=== PATIENT | female | born 1945 | race Caucasian/White ===

== ENCOUNTER 2020-12-13 15:56 | Outpatient (CLI) | payer MEDICARE, BC, SELFPAY ==
--- NOTE | 2020-12-13 16:00 | MR_ITS ---
WS: [id number] MRCP (MAGNETIC RESONANCE CHOLANGIOPANCREATOGRAPHY) HISTORY: PANCREATIC CYST COMPARISON: None available. TECHNIQUE: Multiple sequences are performed to evaluate the intra and extrahepatic ducts. Liver is elongated measuring just greater than 18 cm in length. No mass is identified. Bile ducts are normal size. Normal signal intensity in the portal vein and hepatic veins. Common bile duct is reilly l size. Gallbladder is normally distended with no filling defects. Pancreas is normal size. Pancreati c duct is top normal at 2 mm. No filling defects in the pancreatic duct. No pancreatic cyst is identi fied on this evaluation. There is no pancreatic mass identified or adjacent inflammation. Both kidney s are normal size. No mass. Normal size spleen. MR/MR MRCP [id number] IMPRESSION: 1. Normal common bile duct. No filling defect or enlargement. 2. Mild hepatomegaly. 3. No pancreatic cyst. 4. No anchoring mass.
== END 2020-12-13 15:57 | disposition home or self-care (01) ==
PROVIDERS: PCP Internal Medicine; Visit Provider Internal Medicine
DX: K86.2 Cyst of pancreas (principal); R16.0 Hepatomegaly, not elsewhere classified
CPT/HCPCS: 74181

== ENCOUNTER → 2021-01-10 08:09 | Outpatient (BNVA) | payer MEDICARE, BC, SELFPAY | PROVIDERS: PCP Internal Medicine; Visit Provider Specialist | DX: G30.9 Alzheimer's disease, unspecified (principal); F02.80 Dementia in other diseases classified elsewhere, unspecified severity, without behavioral disturbance, psychotic disturbance, mood disturbance, and anxiety; G24.3 Spasmodic torticollis | CPT/HCPCS: 96116; 99204; 99205 ==

== ENCOUNTER 2021-01-22 13:34 | Outpatient (RCR) | payer MEDICARE, BC, SELFPAY | END 2021-02-17 23:59 | disposition home or self-care (01) | LOC: SPT 13:34 | PROVIDERS: PCP Internal Medicine; Referring Provider Specialist; Visit Provider Specialist | DX: G24.3 Spasmodic torticollis (principal) | CPT/HCPCS: 97110; 97162 ==

== ENCOUNTER → 2021-02-14 12:53 | Outpatient (BNVA) | payer MEDICARE, BC, SELFPAY | PROVIDERS: PCP Internal Medicine; Visit Provider Specialist | DX: G24.3 Spasmodic torticollis (principal); G30.9 Alzheimer's disease, unspecified; F02.80 Dementia in other diseases classified elsewhere, unspecified severity, without behavioral disturbance, psychotic disturbance, mood disturbance, and anxiety | CPT/HCPCS: 64616; 99213; 99214; J0585 ==

== ENCOUNTER 2021-02-18 06:00 | Outpatient (RCR) | payer MEDICARE, BC, SELFPAY | END 2021-03-19 23:59 | disposition home or self-care (01) | LOC: SPT 06:00 | PROVIDERS: PCP Internal Medicine; Referring Provider Specialist; Visit Provider Specialist | DX: G24.3 Spasmodic torticollis (principal) | CPT/HCPCS: 97110 ==

== ENCOUNTER 2021-03-20 06:00 | Outpatient (RCR) | payer MEDICARE, BC, SELFPAY | END 2021-04-19 23:59 | disposition home or self-care (01) | LOC: SPT 06:00 | PROVIDERS: PCP Internal Medicine; Referring Provider Specialist; Visit Provider Specialist | DX: G24.3 Spasmodic torticollis (principal) | CPT/HCPCS: 97110 ==

== ENCOUNTER 2021-03-26 09:25 | Outpatient (CLI) | payer MEDICARE, BC, SELFPAY ==
--- NOTE | 2021-03-26 09:32 | MM_ITS ---
WS: [id number] BILATERAL DIGITAL SCREENING MAMMOGRAPHY WITH CAD CLINICAL INFORMATION: SCREENING HISTORY: Screening mammogram. No current complaints. COMPARISON: August 30, 2019 TECHNIQUE: Bilateral CC and MLO views. FINDINGS: History of breast reduction. Right nipple inversion Scattered fibroglandular densities bilaterally. Dystrophic calcification upper outer left breast. Guille ateral punctate and lucent centered calcifications are similar in appearance. Vascular calcification. No suspicious focal mass, asymmetry, calcifications, or architectural distortion. No evidence of mal ignancy. MM/[place] [id number] IMPRESSION: BI-RADS: 2-Benign FOLLOW UP: 1 Year Follow-up Recommend return to annual screening mammography.
== END 2021-03-26 09:26 | disposition home or self-care (01) ==
LOC: RADSHAW 09:30
PROVIDERS: PCP Internal Medicine; Visit Provider Internal Medicine
DX: Z12.31 Encounter for screening mammogram for malignant neoplasm of breast (principal)
CPT/HCPCS: 77067

== ENCOUNTER → 2021-03-27 09:39 | Outpatient (BNVA) | payer MEDICARE, BC, SELFPAY | PROVIDERS: PCP Internal Medicine; Visit Provider Specialist | DX: G24.3 Spasmodic torticollis (principal); G30.9 Alzheimer's disease, unspecified; F02.80 Dementia in other diseases classified elsewhere, unspecified severity, without behavioral disturbance, psychotic disturbance, mood disturbance, and anxiety | CPT/HCPCS: 99214 ==

== ENCOUNTER 2021-04-20 06:00 | Outpatient (RCR) | payer MEDICARE, BC, SELFPAY | END 2021-05-20 23:59 | disposition home or self-care (01) | LOC: SPT 06:00 | PROVIDERS: PCP Internal Medicine; Referring Provider Specialist; Visit Provider Specialist | DX: G24.3 Spasmodic torticollis (principal) | CPT/HCPCS: 97110 ==

== ENCOUNTER → 2021-05-09 13:19 | Outpatient (BNVA) | payer MEDICARE, BC, SELFPAY | PROVIDERS: PCP Internal Medicine; Visit Provider Specialist | DX: G24.3 Spasmodic torticollis (principal); G30.9 Alzheimer's disease, unspecified; F02.80 Dementia in other diseases classified elsewhere, unspecified severity, without behavioral disturbance, psychotic disturbance, mood disturbance, and anxiety | CPT/HCPCS: 64616; 99213; 99214; J0585 ==

== ENCOUNTER 2021-05-28 06:00 | Outpatient (RCR) | payer MEDICARE, BC, SELFPAY | END 2021-06-17 23:59 | disposition home or self-care (01) | LOC: SST 06:00 | PROVIDERS: PCP Internal Medicine; Referring Provider Specialist; Visit Provider Specialist | DX: G30.9 Alzheimer's disease, unspecified (principal); F02.80 Dementia in other diseases classified elsewhere, unspecified severity, without behavioral disturbance, psychotic disturbance, mood disturbance, and anxiety | CPT/HCPCS: 92507; 96125 ==

== ENCOUNTER 2021-07-24 14:47 | Outpatient (CLI) | payer MEDICARE, BC, SELFPAY ==
[2021-07-24 15:14] LABS: Add Urine Microscopic? NO; Charge for UA Resulting for Rev
[2021-07-24 15:31] LABS: Bilirubin Urine Neg (Negative); Blood Urine Neg (Negative); Glucose Urine UA Norm (Normal); Ketones Urine Negative (Negative); Leukocyte Esterase Urine Negative (Negative); Nitrate Urine Negative (Negative); Protein Urine Neg (Negative); Specific Gravity, Urine 1.015 (1.005-1.030); Urine Appearance Clear (CLEAR); Urine Color Yellow (Yellow); Urobilinogen Urine Neg (Negative); pH Urine 5 (5-7)
== END 2021-07-24 14:48 | disposition home or self-care (01) ==
LOC: LAB 14:53
PROVIDERS: PCP Internal Medicine; Visit Provider Internal Medicine
DX: R46.89 Other symptoms and signs involving appearance and behavior (principal)
CPT/HCPCS: 81003; 87086

== ENCOUNTER 2021-07-29 14:02 | Outpatient (CLI) | payer MEDICARE, BC, SELFPAY ==
--- NOTE | 2021-07-29 14:15 | XRR_ITS ---
PROCEDURE INFORMATION: Exam: XR Pelvis Exam date and time: 07/29/2021 2:16 PM Age: 75 years old Clinical indication: Injury or trauma; Fall; Blunt trauma (contusions or hematomas); Bilateral; Pelvic region; Injury details: Pain pelvis/ tailbone area. PT fell 10 days ago; Prior surgery; Surgery type: Rectal/vagina prolapse repair; Additional info: Coccydynia/falls TECHNIQUE: Imaging protocol: XR pelvis. Views: 1 or 2 view. COMPARISON: MR MRCP [id number] 12/13/2020 4:35 PM FINDINGS: Bones/joints: No acute fracture. Moderate joint space narrowing of both hips. 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 Soft tissues: Metallic artifact at the pubic symphysis, likely from prolapse repair. XR/XR pelvis 1-2V* [id number] IMPRESSION: No acute findings.
--- NOTE | 2021-07-29 14:15 | XRR_ITS ---
PROCEDURE INFORMATION: Exam: XR Sacrum and Coccyx, 2 or More Views Exam date and time: 07/29/2021 2:16 PM Age: 75 years old Clinical indication: Injury or trauma; Fall; Blunt trauma (contusions or hematomas); Prior surgery; Surgery type: Rectal/vagina prolapse repair; Patient HX: Pain pelvis/ tailbone area. PT fell 10 days ago; Additional info: Coccydynia/falls TECHNIQUE: Imaging protocol: XR of the sacrum and coccyx, 2 or more views. COMPARISON: MR MRCP [id number] 12/13/2020 4:35 PM FINDINGS: Bones/joints: Normal. No acute fracture. Soft tissues: Normal. XR/XR sacrum coccyx min 2V [id number] IMPRESSION: No acute findings.
== END 2021-07-29 14:03 | disposition home or self-care (01) ==
LOC: RAD 14:07
PROVIDERS: PCP Internal Medicine; Visit Provider Internal Medicine
DX: M53.3 Sacrococcygeal disorders, not elsewhere classified (principal); R29.6 Repeated falls; R52 Pain, unspecified
CPT/HCPCS: 72170; 72220

== ENCOUNTER → 2021-08-29 09:19 | Outpatient (BNVA) | payer MEDICARE, BC, SELFPAY | PROVIDERS: PCP Internal Medicine; Visit Provider Specialist | DX: G24.3 Spasmodic torticollis (principal); G30.9 Alzheimer's disease, unspecified; F02.80 Dementia in other diseases classified elsewhere, unspecified severity, without behavioral disturbance, psychotic disturbance, mood disturbance, and anxiety | CPT/HCPCS: 64616; 99213; J0585 ==

== ENCOUNTER → 2021-09-25 13:14 | Outpatient (BNVA) | payer MEDICARE, BC, SELFPAY | PROVIDERS: PCP Internal Medicine; Visit Provider Specialist | DX: G30.9 Alzheimer's disease, unspecified (principal); F02.80 Dementia in other diseases classified elsewhere, unspecified severity, without behavioral disturbance, psychotic disturbance, mood disturbance, and anxiety; G24.3 Spasmodic torticollis; R21 Rash and other nonspecific skin eruption | CPT/HCPCS: 99213; 99214 ==

== ENCOUNTER → 2021-11-19 10:59 | Outpatient (BNVA) | payer MEDICARE, BC, SELFPAY | PROVIDERS: PCP Internal Medicine; Visit Provider Podiatrist Foot & Ankle Surgery | DX: L60.8 Other nail disorders (principal); L60.3 Nail dystrophy; I73.9 Peripheral vascular disease, unspecified | CPT/HCPCS: 11721 ==

== ENCOUNTER → 2021-11-21 09:23 | Outpatient (BNVA) | payer MEDICARE, BC, SELFPAY | PROVIDERS: PCP Internal Medicine; Visit Provider Specialist | DX: G24.3 Spasmodic torticollis (principal); M41.9 Scoliosis, unspecified; G30.9 Alzheimer's disease, unspecified; F02.80 Dementia in other diseases classified elsewhere, unspecified severity, without behavioral disturbance, psychotic disturbance, mood disturbance, and anxiety | CPT/HCPCS: 64616; 72072; 72100; 72220; 99212; 99213; J0585 ==

== ENCOUNTER 2021-11-26 06:00 | Outpatient (RCR) | payer MEDICARE, BC, SELFPAY | END 2021-12-18 23:59 | disposition home or self-care (01) | LOC: SPT 06:00 | PROVIDERS: PCP Internal Medicine; Referring Provider Specialist; Visit Provider Specialist | DX: M54.50 Low back pain, unspecified (principal) | CPT/HCPCS: 97110; 97161; 97162; 97530 ==

== ENCOUNTER 2021-11-26 06:00 | Outpatient (RCR) | payer MEDICARE, BC, SELFPAY | END 2021-12-18 23:59 | disposition home or self-care (01) | LOC: SPT 06:00 | PROVIDERS: PCP Internal Medicine; Referring Provider Internal Medicine; Visit Provider Internal Medicine | DX: M54.50 Low back pain, unspecified (principal); G89.29 Other chronic pain | CPT/HCPCS: 97110; 97161; 97530 ==

== ENCOUNTER 2021-12-14 16:24 | Outpatient (CLI) | payer MEDICARE, BC, SELFPAY ==
[2021-12-14 16:31] LABS: Add Urine Microscopic? NO; Charge for UA Resulting for Rev
[2021-12-14 16:44] LABS: Bilirubin Urine Neg (Negative); Blood Urine Neg (Negative); Glucose Urine UA Norm (Normal); Ketones Urine Negative (Negative); Leukocyte Esterase Urine Negative (Negative); Nitrate Urine Negative (Negative); Protein Urine Neg (Negative); Specific Gravity, Urine 1.005 (1.005-1.030); Urine Appearance Clear (CLEAR); Urine Color Yellow (Yellow); Urobilinogen Urine Norm (Negative); pH Urine 6 (5-7)
== END 2021-12-14 16:25 | disposition home or self-care (01) ==
LOC: LAB 16:26
PROVIDERS: PCP Internal Medicine; Visit Provider Family Medicine
DX: N39.0 Urinary tract infection, site not specified (principal)
CPT/HCPCS: 81003; 87086

== ENCOUNTER 2021-12-19 06:00 | Outpatient (RCR) | payer MEDICARE, BC, SELFPAY | END 2022-01-17 23:59 | disposition home or self-care (01) | LOC: SPT 06:00 | PROVIDERS: PCP Internal Medicine; Visit Provider Internal Medicine | DX: M54.50 Low back pain, unspecified (principal) | CPT/HCPCS: 97110; 97530 ==

== ENCOUNTER 2021-12-19 06:00 | Outpatient (RCR) | payer MEDICARE, BC, SELFPAY | END 2022-01-17 23:59 | disposition home or self-care (01) | LOC: SPT 06:00 | PROVIDERS: PCP Internal Medicine; Visit Provider Specialist | DX: M54.50 Low back pain, unspecified (principal); G89.29 Other chronic pain | CPT/HCPCS: 97110 ==

== ENCOUNTER 2022-01-18 06:00 | Outpatient (RCR) | payer MEDICARE, BC, SELFPAY | END 2022-02-17 23:59 | disposition home or self-care (01) | LOC: SPT 06:00 | PROVIDERS: PCP Internal Medicine; Visit Provider Internal Medicine | DX: M54.50 Low back pain, unspecified (principal) | CPT/HCPCS: 97110; 97112; 97530 ==

== ENCOUNTER 2022-02-18 06:00 | Outpatient (RCR) | payer MEDICARE, BC, SELFPAY | END 2022-03-19 23:59 | disposition home or self-care (01) | LOC: SPT 06:00 | PROVIDERS: PCP Internal Medicine; Visit Provider Internal Medicine | DX: M54.50 Low back pain, unspecified (principal) | CPT/HCPCS: 97530 ==

== ENCOUNTER → 2022-02-20 14:02 | Outpatient (BNVA) | payer MEDICARE, BC, SELFPAY | PROVIDERS: PCP Internal Medicine; Visit Provider Specialist | DX: G24.3 Spasmodic torticollis (principal) | CPT/HCPCS: 64616 ==

== ENCOUNTER → 2022-03-03 15:27 | Outpatient (BNVA) | payer MEDICARE, BC, SELFPAY | PROVIDERS: PCP Internal Medicine; Visit Provider Podiatrist Foot & Ankle Surgery | DX: L60.8 Other nail disorders (principal); L60.3 Nail dystrophy; I73.9 Peripheral vascular disease, unspecified | CPT/HCPCS: 99213 ==

== ENCOUNTER → 2022-04-28 12:29 | Outpatient (BNVA) | payer MEDICARE, BC, SELFPAY | PROVIDERS: PCP Internal Medicine; Referring Provider Specialist; Visit Provider Specialist | DX: G30.9 Alzheimer's disease, unspecified (principal); F02.80 Dementia in other diseases classified elsewhere, unspecified severity, without behavioral disturbance, psychotic disturbance, mood disturbance, and anxiety; G24.3 Spasmodic torticollis; G47.419 Narcolepsy without cataplexy | CPT/HCPCS: 96116; 99215 ==

== ENCOUNTER → 2022-05-06 10:21 | Outpatient (BNVA) | payer MEDICARE, BC, SELFPAY | PROVIDERS: PCP Internal Medicine; Visit Provider Podiatrist Foot & Ankle Surgery | DX: I73.9 Peripheral vascular disease, unspecified (principal); L60.8 Other nail disorders; L60.3 Nail dystrophy | CPT/HCPCS: 11721 ==

== ENCOUNTER → 2022-05-15 14:13 | Outpatient (BNVA) | payer MEDICARE, BC, SELFPAY | PROVIDERS: PCP Internal Medicine; Visit Provider Specialist | DX: G24.3 Spasmodic torticollis (principal); G30.9 Alzheimer's disease, unspecified; F02.80 Dementia in other diseases classified elsewhere, unspecified severity, without behavioral disturbance, psychotic disturbance, mood disturbance, and anxiety; G47.419 Narcolepsy without cataplexy | CPT/HCPCS: 64616; 99214; J0585 ==

== ENCOUNTER → 2022-07-15 10:54 | Outpatient (BNVA) | payer MEDICARE, BC, SELFPAY | PROVIDERS: PCP Internal Medicine; Visit Provider Podiatrist Foot & Ankle Surgery | DX: I73.9 Peripheral vascular disease, unspecified (principal); L60.8 Other nail disorders; L60.3 Nail dystrophy | CPT/HCPCS: 11721 ==

== ENCOUNTER 2022-09-04 13:06 | Outpatient (CLI) | payer MEDICARE, BC, SELFPAY ==
--- NOTE | 2022-09-04 13:20 | XR_ITS ---
WS: [id number] DEXA (DUAL ENERGY X-RAY ABSORPTIOMETRY) Bone mineral density was performed using a [employer] machine. HISTORY: ASYMPTOMATIC POSTMENOPAUSAL STATUS COMPARISON: None available. Lumbar spine BMD (L1-L4): 1.090 g/cm2 T score: -0.8 Z score: 1.4 Total hip BMD: Left: 0.866 g/cm2. T score: -1.1 Z score: 1.0 Right: 0.906 g/cm2. T score: -0.8 Z score: 1.4 10 year probability of a major osteoporotic fracture is 12.9% XR/XR DEXA axial skeleton* [id number] IMPRESSION: OSTEOPENIA based upon the WHO classification for females.
== END 2022-09-04 13:07 | disposition home or self-care (01) ==
LOC: RAD 13:10
PROVIDERS: PCP Internal Medicine; Visit Provider Internal Medicine
DX: Z78.0 Asymptomatic menopausal state (principal); M85.80 Other specified disorders of bone density and structure, unspecified site
CPT/HCPCS: 77080

== ENCOUNTER → 2022-09-11 15:18 | Outpatient (BNVA) | payer MEDICARE, BC, SELFPAY | PROVIDERS: PCP Internal Medicine; Visit Provider Specialist | DX: G24.3 Spasmodic torticollis (principal); G47.419 Narcolepsy without cataplexy; G30.9 Alzheimer's disease, unspecified; F02.80 Dementia in other diseases classified elsewhere, unspecified severity, without behavioral disturbance, psychotic disturbance, mood disturbance, and anxiety | CPT/HCPCS: 64616; 99214; J0585 ==

== ENCOUNTER → 2022-09-16 10:46 | Outpatient (BNVA) | payer MEDICARE, BC, SELFPAY | PROVIDERS: PCP Internal Medicine; Visit Provider Podiatrist Foot & Ankle Surgery | DX: I73.9 Peripheral vascular disease, unspecified (principal); L60.8 Other nail disorders; L60.3 Nail dystrophy | CPT/HCPCS: 11721 ==

== ENCOUNTER → 2022-11-17 10:20 | Outpatient (BNVA) | payer MEDICARE, BC, SELFPAY | PROVIDERS: Visit Provider Podiatrist Foot & Ankle Surgery | DX: L60.8 Other nail disorders (principal); L60.3 Nail dystrophy; I73.9 Peripheral vascular disease, unspecified | CPT/HCPCS: 11721 ==

== ENCOUNTER 2022-11-25 12:32 | Outpatient (RCR) | payer MEDICARE, BC, SELFPAY | END 2022-12-18 23:59 | disposition home or self-care (01) | LOC: SPT 12:32 | PROVIDERS: Visit Provider Specialist | DX: G24.3 Spasmodic torticollis (principal) | CPT/HCPCS: 97110; 97161 ==

== ENCOUNTER → 2022-12-11 14:08 | Outpatient (BNVA) | payer MEDICARE, BC, SELFPAY | PROVIDERS: PCP Internal Medicine; Visit Provider Specialist | DX: G24.3 Spasmodic torticollis (principal); G30.9 Alzheimer's disease, unspecified; F02.80 Dementia in other diseases classified elsewhere, unspecified severity, without behavioral disturbance, psychotic disturbance, mood disturbance, and anxiety; G47.419 Narcolepsy without cataplexy | CPT/HCPCS: 64616; 99214; J0585 ==

== ENCOUNTER 2022-12-19 06:00 | Outpatient (RCR) | payer MEDICARE, BC, SELFPAY | END 2023-01-17 23:59 | disposition home or self-care (01) | LOC: SPT 06:00 | PROVIDERS: PCP Internal Medicine; Visit Provider Specialist | DX: G24.3 Spasmodic torticollis (principal) | CPT/HCPCS: 97110 ==

== ENCOUNTER 2023-01-09 13:10 | Emergency (ER) | payer MEDICARE, BC, SELFPAY ==
[2023-01-09 13:17] VITALS: BP 138/84; PULSE 72; RESP 15; TEMP 36.2; O2SAT 98; BMI 21.7
[2023-01-09 13:30] VITALS: BP 147/65; PULSE 71; O2SAT 97
--- NOTE | 2023-01-09 13:45 | CT_ITS ---
WS: [id number] CT HEAD TECHNIQUE: Noncontrast CT of the head obtained from the skullbase to the vertex. CLINICAL INFORMATION: trauma, fall COMPARISON: None. DLP: 1067.[address] scans at [facility] use at least one of these dose optimization techniques: automated e xposure control; mA and/or kV adjustment per patient size (includes targeted exams where dose is matc hed to clinical indication); or iterative reconstruction. FINDINGS: No evidence of intracranial hemorrhage or mass effect. Ventricular system and basal cisterns are xiong nt. Mild small vessel changes with moderate parenchymal volume loss. Tiny chronic lacunar infarcts LE FT thalamus. No extra-axial fluid collections. No evidence of mass or mass effect. Mild mucosal thickening in the paranasal sinuses. Mastoid air cells are well aerated. Normal posterio r nasopharynx. IMPRESSION: 1. No evidence of intracranial hemorrhage or mass effect. 2. Mild small vessel changes. Moderate parenchymal volume loss. 3. Chronic lacunar infarcts LEFT thalamus. 4. Vascular calcification. 5. No acute intracranial findings.
--- NOTE | 2023-01-09 13:52 | W.ED.FALL ---
HPI - Fall General: Chief Complaint: Fall Stated Complaint: fall Time Seen by Provider: 01/09/23 13:22 History of Present Illness: 77-year-old female brought in by her son and [id number]. She lives with them currently. Family explains that they had plans to take her in for evaluation to be admitted to a correction facility today. Patient found out about this. 10 minutes later she was walking down the stairs and they heard a fall. Family explains that she does not want to be admitted to correction. They state that there were very unusual circumstances around the fall. They state that the patient had been up and down the stairs 3 times already today without any issues. When they went down to check on her both of her shoes were lined up equally on the third step as if she had taken them off. She was laying on the ground at the base of the stairs. She did not appear to be seriously injured. Patient denies doing this on purpose. She cannot explain why her shoes were lined up perfectly on the third stair. Or why it seemed to happen right after she found out she was going to have to go back for correction. It is noticed that the patient is anxious and stuttering. She was placed in a c-collar as a precaution but denies any neck pain. They do not think she hit her head and have not seen any stigmata of injury. Patient states she is not sure if she hit her head or not. She does deny loss of consciousness. She has a mild skin tear on the left elbow region. She feels like she has a bruise in her left thigh. She feels like she caught her left fifth toe on something. Otherwise she denies any injuries. Associated symptoms-after fall: Denies abdominal pain, chest pain, difficulty walking, headache(s) or neck pain Review of Systems General: Reports: 10 or more systems reviewed and unremarkable except in HPI and below Const: Denies: fever(s) or chills Eyes: Denies: change in vision Card: Denies: chest pain, edema or syncope Resp: Denies: dyspnea or productive cough GI: Denies: abdominal pain or vomiting : Denies: flank pain, dysuria or urinary frequency Musc: Denies: neck pain, back pain or extremity swelling Skin/Breast: Denies: rash or erythema Neuro: Denies: headache(s), numbness in extremities, weakness in extremities, lack of coordination or difficulty walking Psych: Reports: anxiety and irritability [facility] PFSH: Social History Smoking and tobacco status: never smoked Physical Exam Narrative: EXAM NARRATIVE: Patient has her eyes closed when I come in. She is in a cervical collar. She has a stuttering speech and anxious affect. There there are no signs of head injury or facial injury. The C-spine is nontender and her range of motion is baseline. She subjectively does not complain of any pain. C-collar was removed. The remainder of her spine is without focal tenderness. Her right upper extremity exam is normal. Her left upper extremity exam is normal with the exception of a 2 cm superficial skin tear near the left elbow. No bony tenderness or issues with range of motion, swelling, effusion. The left lower extremity was examined. She has subjective tenderness over the left lateral thigh and has a very very small abrasion in the left infrapatellar space that is very superficial. Range of motion of the left hip, knee, ankle all normal. She has tenderness of the left toe without any deformity. The foot is nontender and the ankle is nontender. The right lower extremity exam is unremarkable. Pelvis is stable. Chest is nontender and stable without any crepitus. Const: COMMON NORMALS: no limitations and alert EXAM LIMITATIONS: no altered mental status HENMT: COMMON NORMALS: normocephalic, atraumatic and external ears normal HEAD & SCALP: normocephalic and atraumatic EXTERNAL EAR: Yes external ears normal MOUTH: no muffled voice Eye: COMMON NORMALS: EOMs intact bilaterally, conjunctivae normal and no scleral icterus CONJUNCTIVA: Yes conjunctivae normal Neck/C-Spine: COMMON NORMALS: no JVD GENERAL: Yes normal visual inspection and Yes trachea midline Resp: COMMON NORMALS: normal respiratory effort, No use of accessory muscles and clear to auscultation bilaterally AUSCULTATION: clear to auscultation bilaterally Cardio: COMMON NORMALS: no JVD, regular rate and regular rhythm RATE: regular rate RHYTHM: regular rhythm GI: COMMON NORMALS: Soft to palpation and non-tender PALPATION: Yes Soft to palpation and No Guarding due to palpation present (GI) Neuro: COMMON NORMALS: moves all extremities, no focal motor deficits and no sensory deficits noted SENSORIUM/ORIENTATION: Yes alert SPEECH: speech normal Skin: COMMON NORMALS: no jaundice Course Vital Signs: Vital signs: Vital Signs Temperature 97.2 F L 01/09/23 13:17 Pulse Rate 71 01/09/23 13:30 Respiratory Rate 15 01/09/23 13:17 Blood Pressure 147/65 01/09/23 13:30 Pulse Oximetry 97 01/09/23 13:30 Oxygen Delivery Me thod Room Air 01/09/23 13:30 MDM - Fall Medical Decision Making 1. Small skin tear left elbow. Cleaned with antiseptic and apply Steri-Strips. This occurred indoors and is extremely unlikely to warrant significant concern over tetanus. No bony tenderness. No imaging indicated. Patient is actively using her left upper extremity with no restrictions. 2. C-collar removed after patient was cleared using Nexus criteria. 3. Is unclear whether she hit her head or not, at her age were going to err on the side of caution and get a CT scan of the head without contrast. She does not have any signs or symptoms of concussion. 4. Patient has pain to the left fifth toe. I offered her an x-ray but she does not want it as it will not change her management. 5. Patient denies falling on purpose however the circumstances and evidence does sound extremely suspicious. This is something that the family can work out with her. Update CT scan of the head without contrast was negative for any fracture, bleeding or acute pathology. All radiology interpretation(s) finalized by discharge Discharge Plan Discharge Patient Disposition: Home Clinical Impression: Fall from standing, Contusion of left thigh, initial encounter, Skin tear of elbow without complication Condition: Stable Prescriptions: No Action sulfasalazine 500 mg tablet,delayed release (DR/EC) 0.5 g PO DAILY rivastigmine 9.5 mg/24 hour patch 24 hour 9.5 mg transdermal DAILY Qty: 30 5RF Rx Instructions: 1 patch daily escitalopram oxalate [Lexapro] 10 mg tablet 10 mg PO DAILY quetiapine [Seroquel] 100 mg tablet 50 mg PO BID Qty: 90 3RF cholecalciferol (vitamin D3) 125 mcg (5,000 unit) Capsule 125 mcg PO DAILY mecobalamin (vitamin B12) 500 mcg Tablet,Chewable 500 mcg PO DAILY Matrix Plus 3000 1 cap PO BID Discharge Orders: Discharge ED (Routine); Ordered 01/09/23 Ordered By: Yomi Beckford Referrals: Nancie Kenny MD [Primary Care Provider] - Patient Instructions: Opioid Safety, Pain Management Activity Restrictions/Additional Instructions: CT scan of the head without contrast was negative for any acute pathology such as fracture or bleeding. Keep your left elbow skin tear bandaged. Change it at least once daily or whenever soiled. If there are signs of infection, call your doctor or go to the ER. There is soreness of the left toe and you have opted to defer imaging. If you are having discomfort you may use a stiff soled shoe or kaushik tape. No other significant injuries were discovered. Coding Level of Care Code ED Inspection Supervisor for Jose Rafael Mitchell
[2023-01-09 14:27] VITALS: BP 167/66; PULSE 70; O2SAT 98
[2023-01-09 14:40] VITALS: PULSE 69; O2SAT 99
== END 2023-01-09 14:41 | disposition home or self-care (01) ==
PROVIDERS: Emergency Provider Emergency Medicine; PCP Internal Medicine
DX: S70.12XA Contusion of left thigh, initial encounter (principal); S51.012A Laceration without foreign body of left elbow, initial encounter; W10.8XXA Fall (on) (from) other stairs and steps, initial encounter
CPT/HCPCS: 70450; 99284

== ENCOUNTER 2023-01-18 06:00 | Outpatient (RCR) | payer MEDICARE, BC, SELFPAY | END 2023-02-17 23:59 | disposition home or self-care (01) | LOC: SPT 06:00 | PROVIDERS: PCP Internal Medicine; Visit Provider Specialist | DX: G24.3 Spasmodic torticollis (principal) | CPT/HCPCS: 97110 ==

== ENCOUNTER → 2023-01-27 12:57 | Outpatient (BNVA) | payer MEDICARE, BC, SELFPAY | PROVIDERS: PCP Internal Medicine; Visit Provider Podiatrist Foot & Ankle Surgery | DX: L60.8 Other nail disorders (principal); L60.3 Nail dystrophy; I73.9 Peripheral vascular disease, unspecified | CPT/HCPCS: 11721 ==

== ENCOUNTER → 2023-04-01 11:30 | Outpatient (BNVA) | payer MEDICARE, BC, SELFPAY | PROVIDERS: PCP Internal Medicine; Visit Provider Podiatrist Foot & Ankle Surgery | DX: L60.8 Other nail disorders (principal); L60.3 Nail dystrophy; I73.9 Peripheral vascular disease, unspecified | CPT/HCPCS: 11721 ==

== ENCOUNTER → 2023-04-02 14:12 | Outpatient (BNVA) | payer MEDICARE, BC, SELFPAY | PROVIDERS: PCP Internal Medicine; Visit Provider Specialist | DX: G24.3 Spasmodic torticollis (principal); G30.9 Alzheimer's disease, unspecified; F02.80 Dementia in other diseases classified elsewhere, unspecified severity, without behavioral disturbance, psychotic disturbance, mood disturbance, and anxiety | CPT/HCPCS: 64616; 99213; J0585 ==

== ENCOUNTER 2023-06-29 10:04 | Inpatient (IN) | payer MEDICARE, BC, SELFPAY ==
--- NOTE | 2023-06-29 09:18 | ECG_ITS ---
[facility] Test Date: 2023-06-29 Pat Name: Natalia Jackson Department: Room: Gender: Female Beam Department Supervisor: : 1945 Requested By: Zak Sanchez Order Number: [id number] Cornelio MD: Blake Hernandez M.D. Measurements Intervals [place] Rate: 63 P: 63 AK: 158 QRS: -9 QRSD: 80 T: 70 QT: 419 QTc: 429 Interpretive Statements SINUS RHYTHM No previous ECG available for comparison Electronically Signed On 06-29-2023 14:20:31 CDT by Blake Hernandez M.D. [email or web address]
[2023-06-29 10:05] VITALS: BMI 33.8
[2023-06-29 10:08] VITALS: BP 181/77; PULSE 62; RESP 17; TEMP 36.9; O2SAT 98
--- NOTE | 2023-06-29 10:12 | XRR_ITS ---
PROCEDURE INFORMATION: Exam: XR Chest Exam date and time: 06/29/2023 10:44 AM Age: 77 years old Clinical indication: Cough and dyspnea; Additional info: Dyspnea/cough TECHNIQUE: Imaging protocol: Radiologic exam of the chest. Views: 1 view. COMPARISON: CR XR thoracic spine 3V* [id number] 11/21/2021 11:22 AM FINDINGS: Lungs: Unremarkable. No consolidation. Pleural spaces: Unremarkable. No pleural effusion. No pneumothorax. Heart/Mediastinum: See Vasculature finding. Vasculature: Tortuous aorta. Normal heart size. Bones/joints: Unremarkable. XR/XR chest 1V portable [id number] IMPRESSION: No acute disease.
[2023-06-29 10:30] LABS: Basophils # 0.1 10^3/uL (0.0-0.1); Basophils % 1.1 %; Eosinophils # 0.1 10^3/uL (0.0-0.8); Eosinophils % 1.1 %; Hematocrit 41.2 % (36-47); Lymphocytes # 2.7 10^3/uL (0.8-4.8); Lymphocytes % 43.4 %; Mean Corpuscular Hemoglobin 29.9 pg (27-33); Mean Corpuscular Volume 93.4 fl (85-98); Mean Platelet Volume 10.2 fL (7.4-10.4); Monocytes # 0.4 10^3/uL (0.2-0.9); Monocytes % 6.3 %; Neutrophils # 3.02 10^3/uL (1.8-7.7); Neutrophils % 47.8 %; Nucleated Red Blood Cells % 0 %; Platelet Count 248 10^3/cmm (157-399); Red Blood Count 4.41 10^6/uL (3.85-5.65); Red Cell Distribution Width 13.7 % (12.1-15.1); White Blood Count 6.32 10^3/uL (3.29-11.43)
--- NOTE | 2023-06-29 10:49 | CT_ITS ---
WS: [id number] CT HEAD NONCONTRAST HISTORY: Altered mental status TECHNIQUE: Contiguous axial imaging performed through the brain in 2.5 mm imaging. Bone and soft tiss ue windows. Sagittal and coronal reformats reviewed. All CT scans at [facility] use at least one of these dose optimization techniques: automated exposure control; mA and/or kV adjustment per pa tient size (includes targeted exams where dose is matched to clinical indication); or iterative recon struction. DLP: 1077.48 mGy.cm COMPARISON: 01/09/2023 No acute intracranial hemorrhage, midline shift or mass effect. Moderate volume loss and atrophy and small vessel ischemic disease. Prior lacunar infarct in the LEFT thalamus. Ventricles: Mildly dilated on the basis of atrophy. Very heavy calcified plaque in the distal vertebral arteries and also in the intracranial carotid art eries. Paranasal sinuses: As visualized are clear. Mastoid air cells: Well pneumatized. Calvarium and scalp: Skull is intact with no soft tissue edema or swelling. IMPRESSION: 1. No acute intracranial hemorrhage or edema. 2. Moderate atrophy and small vessel ischemic disease. 3. Prior LEFT thalamic lacunar infarct.
[2023-06-29 10:51] LABS: Alanine Aminotransferase 24 U/L (0-33); Alkaline Phosphatase 71 U/L (35-105); Anion Gap 15.5 (5-19); Aspartate Amino Transferase 19 U/L (0-32); Blood Urea Nitrogen 19 mg/dL (8-23); Calcium 9.4 mg/dL (8.5-10.5); Carbon Dioxide 25 mmol/L (22-29); Chloride 103 mmol/L (98-107); Creatinine Clr Calc Pharmacy 58.2134; Globulin 2.6 g/dL (1.3-4.6); Glucose 92 mg/dL (65-115); Osmolality Calculated 290 mOsm/kg (285-295); Potassium 4.5 mmol/L (3.5-5.1); Sodium 139 mmol/L (136-145); Total Bilirubin 0.4 mg/dL (0.15-1.2); Total Protein 6.6 g/dL (6.6-8.7)
[2023-06-29 10:58] LABS: Add Urine Microscopic? NO; Charge for UA Resulting for Rev
--- NOTE | 2023-06-29 10:58 | W.ED.AMS ---
HPI - Altered Mental Status General: Chief Complaint: Altered Mental Status Stated Complaint: ams Time Seen by Provider: 06/29/23 10:10 Source: patient Mode of arrival: EMS Limitations: altered mental status History of Present Illness: 69-year-old female presents to the emergency room with new onset altered mental status. Woke up this morning with word finding difficulty. She lives in a memory care assisted living. Family member reports that she hit her head a few days ago. She does usually have some word finding trouble related to her dementia but seems quite a bit worse today. No reported fever sweats chills vomiting or diarrhea difficult to get an adequate review of systems from the patient because of her confusion. Nursing staff called the residential reported last known well was 830 last evening. She did take her meds this morning as her word finding was worse than usual and I first seen her and then found her slumped over in a chair in the laundry room. MD complaint: altered mental status and confusion Timing confirmed by: caregiver Severity: mild Review of Systems General: Reports: ROS unobtainable due to mental status [facility] ED PFSH: Medical History (Updated 06/29/23 @ 13:31 by Zak Keane DO) Narcolepsy without cataplexy Peripheral arterial disease Onychodystrophy Cervical dystonia Social History Smoking and tobacco/nicotine status: never used tobacco/nicotine Physical Exam Const: COMMON NORMALS: no acute distress GENERAL APPEARANCE: cooperative and comfortable ORIENTATION/CONSCIOUSNESS: Yes awake, Yes oriented to person, Yes oriented to place and Yes oriented to time HENMT: COMMON NORMALS: normocephalic, atraumatic and hearing grossly normal bilaterally HEAD & SCALP: normocephalic and atraumatic Resp: COMMON NORMALS: normal respiratory effort, No retractions, No use of accessory muscles and clear to auscultation bilaterally AUSCULTATION: clear to auscultation bilaterally Cardio: COMMON NORMALS: regular rate, regular rhythm and No murmurs present (Cardio) RATE: regular rate RHYTHM: regular rhythm GI: COMMON NORMALS: Soft to palpation and No hepatosplenomegaly present AUSCULTATION: Yes normoactive bowel sounds PALPATION: Yes Soft to palpation, No Tenderness to palpation present (GI), No Guarding due to palpation present (GI) and Yes No hepatosplenomegaly present Extremity: COMMON NORMALS: normal to inspection, capillary refill normal, no clubbing, cyanosis or edema, no calf tenderness and no pedal edema Neuro: SENSORIUM/ORIENTATION: Yes oriented to person, Yes oriented to place and Yes oriented to time Skin: COMMON NORMALS: no rashes or lesions noted GENERAL SKIN EXAM: no rashes or lesions noted Course Vital Signs: Vital signs: Vital Signs Temperature 98.4 F 06/29/23 10:08 Pulse Rate 61 06/29/23 13:08 Respiratory Rate 18 06/29/23 13:08 Blood Pressure 148/59 06/29/23 13:08 Pulse Oximetry 95 06/29/23 13:08 Oxygen Delivery Me thod Room Air 06/29/23 10:08 MDM - Altered Mental Status Medical Decision Making On arrival initially was that her last known well was 830 last evening. There is some question that she may have been relatively close to her normal baseline this morning although the report we got from the residential initially was she had word finding difficulty and she first got up family was of the understanding that she seemed to be okay when she first got up in either event at worst her stroke score was a 2 with her other points on the total of 4 coming from her baseline dementia. She not a candidate for thrombectomy and she is improving now. Since there is some question about the last known well we base that is 830 last evening. She is not on any antiplatelet therapy. Family in the bedside does feel she is better than what she was when she first arrived even when they first arrived to see her here in the emergency room. At this time and still give her the same score but notes that to the dysarthria is significantly improved from her arrival. Will place her on observation for workup for secondary stroke prevention initiation of dual platelet therapy and statin Medical Records I reviewed the patient's medical records. Lab Data I reviewed the patient's lab results. 06/29/23 10:20 06/29/23 10:18 Radiology Impressions Chest X-Ray 06/29/23 10:12 IMPRESSION: No acute disease. Laboratory Results WBC 6.32 10^3/uL (3.29-11.43) 06/29/23 10:20 RBC 4.41 10^6/uL (3.85-5.65) 06/29/23 10:20 Hgb 13.20 g/dL (11.27-16.99) 06/29/23 10:20 Hct 41.2 % (36-47) 06/29/23 10:20 MCV 93.4 fl (85-98) 06/29/23 10:20 MCH 29.9 pg (27-33) 06/29/23 10:20 MCHC 32.0 g/dL (30-55) 06/29/23 10:20 RDW 13.7 % (12.1-15.1) 06/29/23 10:20 Plt Count 248 10^3/cmm (157-399) 06/29/23 10:20 MPV 10.2 fL (7.4-10.4) 06/29/23 10:20 Neut % (Auto) 47.8 % 06/29/23 10:20 Lymph % (Auto) 43.4 % 06/29/23 10:20 Bailey % (Auto) 6.3 % 06/29/23 10:20 Eos % (Auto) 1.1 % 06/29/23 10:20 Baso % (Auto) 1.1 % 06/29/23 10:20 Neut # (Auto) 3.02 10^3/uL (1.8-7.7) 06/29/23 10:20 Lymph # (Auto) 2.7 10^3/uL (0.8-4.8) 06/29/23 10:20 Bailey # (Auto) 0.4 10^3/uL (0.2-0.9) 06/29/23 10:20 Eos # (Auto) 0.1 10^3/uL (0.0-0.8) 06/29/23 10:20 Baso # (Auto) 0.1 10^3/uL (0.0-0.1) 06/29/23 10:20 Nucleated RBC % (auto) 0 % 06/29/23 10:20 Nucleated RBCs # 0.0 /100WBC 06/29/23 10:20 Sodium 139 mmol/L (136-145) 06/29/23 10:18 Potassium 4.5 mmol/L (3.5-5.1) 06/29/23 10:18 Chloride 103 mmol/L (98-107) 06/29/23 10:18 Carbon Dioxide 25 mmol/L (22-29) 06/29/23 10:18 Anion Gap 15.5 (5-19) 06/29/23 10:18 BUN 19 mg/dL (8-23) 06/29/23 10:18 Creatinine 0.7 mg/dL (0.5-0.9) 06/29/23 10:18 GFR Calculation Not Reportable 06/29/23 10:18 Glucose 92 mg/dL (65-115) 06/29/23 10:18 Calculated Osmolality 290 mOsm/kg (285-295) 06/29/23 10:18 Calcium 9.4 mg/dL (8.5-10.5) 06/29/23 10:18 Total Bilirubin 0.4 mg/dL (0.15-1.2) 06/29/23 10:18 AST 19 U/L (0-32) 06/29/23 10:18 ALT 24 U/L (0-33) 06/29/23 10:18 Alkaline Phosphatase 71 U/L (35-105) 06/29/23 10:18 Troponin T Baseline 12 ng/L (0-10) H 06/29/23 10:18 Troponin T 120 Minute 10.73 ng/L (0-10) H 06/29/23 12:08 Delta Troponin T -1.27 ABS# (0-10) L 06/29/23 12:08 Total Protein 6.6 g/dL (6.6-8.7) 06/29/23 10:18 Albumin 4.0 g/dL (3.5-5.2) 06/29/23 10:18 Globulin 2.6 g/dL (1.3-4.6) 06/29/23 10:18 Urine Color Yellow (Yellow) 06/29/23 10:39 Urine Appearance Clear (CLEAR) 06/29/23 10:39 Urine pH 6 (5-7) 06/29/23 10:39 Ur Specific [place] 1.020 (1.005-1.030) 06/29/23 10:39 Urine Protein Neg (Negative) 06/29/23 10:39 Urine Glucose (UA) Norm (Normal) 06/29/23 10:39 Urine Ketones Negative (Negative) 06/29/23 10:39 Urine Blood Neg (Negative) 06/29/23 10:39 Urine Nitrate Negative (Negative) 06/29/23 10:39 Urine Bilirubin Neg (Negative) 06/29/23 10:39 Urine Urobilinogen Neg mg/dL (Negative) 06/29/23 10:39 Ur Leukocyte Esterase Negative (Negative) 06/29/23 10:39 All radiology interpretation(s) finalized by discharge Discharge Plan Discharge Condition: Stable Prescriptions: No Action sulfasalazine 500 mg tablet,delayed release (DR/EC) 0.5 g PO QAM escitalopram oxalate [Lexapro] 10 mg tablet 10 mg PO QAM cholecalciferol (vitamin D3) 125 mcg (5,000 unit) Capsule 125 mcg PO QAM mecobalamin (vitamin B12) 500 mcg Tablet,Chewable 500 mcg PO QAM quetiapine 50 mg tablet 50 mg PO QAM New [employer] Matrix Plus 3,000 mcg -100 mg-50 mg Tablet Extended Release 1 tab PO QAM rivastigmine 9.5 mg/24 hour patch 24 hour 9.5 mg transdermal QPM Rx Instructions: 1 patch daily acetaminophen 325 mg Tablet 325 - 650 mg PO Q6H PRN (Reason: pain or fever) loperamide 2 mg capsule 4 mg PO BID PRN (Reason: Diarrhea) clonazepam 0.5 mg tablet 0.25 mg PO BID acetaminophen 500 mg Tablet 500 mg PO Q6H PRN (Reason: pain or fever) ibuprofen 400 mg tablet 400 mg PO Q6H PRN (Reason: PAIN OR FEVER) hydroxyzine HCl 25 mg tablet 25 mg PO TID PRN (Reason: ANXIETY OR INSOMNIA) estradiol 0.01 % (0.1 mg/gram) cream See Rx Instructions .ROUTE .COMPLEX Rx Instructions: INSERT 1/2 GRAM VAGINALLY TWICE A WEEK FOR VAGINAL ATROPHY. Refresh Digital 0.5-1-0.5 % Drops 1 - 2 drp OPHTHALMIC (EYE) Q2H PRN (Reason: Dry Eyes) Referrals: Nancie Kenny MD [Primary Care Provider] - Patient Instructions: Altered Mental Status (ED) Coding Level of Care Code ED Cloth Worker for Jose Rafael Mitchell NIH stroke score NIHSS Level Of Consciousness - 1a: 2 (Dementia) Level Of Consciousness Questions - 1b: One Correct (Dementia) Level Of Consciousness Commands - 1c: Both Correct Best Gaze - 2: Normal Visual Coy - 3: No Visual Loss Facial Palsy - 4: Normal Motor Arm Right - 5: No Drift Motor Arm Left - 5: No Drift Motor Leg Right - 6: No Drift Motor Leg Left - 6: No Drift Limb Ataxia - 7: Absent Sensory - 8: Normal Best Language - 9: No Aphasia Dysarthia - 10: Mild/Moderate Dysarthia (New finding increased from baseline) Extinction And Inattention - 11: 0 Score Total Score: 4
[2023-06-29 11:04] LABS: Bilirubin Urine Neg (Negative); Blood Urine Neg (Negative); Glucose Urine UA Norm (Normal); Ketones Urine Negative (Negative); Leukocyte Esterase Urine Negative (Negative); Nitrate Urine Negative (Negative); Protein Urine Neg (Negative); Urine Appearance Clear (CLEAR); Urine Color Yellow (Yellow); Urobilinogen Urine Neg (Negative); pH Urine 6 (5-7)
[2023-06-29 11:05] LABS: Troponin(5th) Baseline 12 ng/L (0-10)
--- NOTE | 2023-06-29 11:20 | ECG_ITS ---
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 Measurements Intervals [place] Rate: 58 P: 60 MN: 171 QRS: -11 QRSD: 81 T: 57 QT: 411 QTc: 407 Interpretive Statements SINUS BRADYCARDIA Compared to ECG 06/29/2023 09:18:18 Sinus rhythm no longer present Electronically Signed On 06-29-2023 14:24:06 CDT by Blake Hernandez M.D. [id number]
[2023-06-29 12:07] VITALS: BP 143/80; PULSE 60; RESP 18; O2SAT 95
[2023-06-29 12:36] LABS: Troponin 5 2HR 10.73 ng/L (0-10)
[2023-06-29 12:40] LABS: Troponin 5 2HR Delta -1.27 ABS# (0-10)
[2023-06-29 13:08] VITALS: BP 148/59; PULSE 61; RESP 18; O2SAT 95
--- NOTE | 2023-06-29 14:21 | USCV_ITS ---
Natalia Jackson Age: 77 Gender: F : 1945 Exam Date: 06/29/2023 21:10 Ordering Phys: Balta Quezada MD Technologist: COLLEEN Exam Location: [facility] [place] Indication: cva ams BP: 151 / 71 HR: 58 Rhythm: Sinus Technical Quality: MEASUREMENTS (Male / Female) Normal Values 2D ECHO LV Diastolic Diameter PLAX 4.0 cm 4.2 - 5.9 / 3.9 - 5.3 cm IVS Diastolic Thickness 1.6 cm 0.6 - 1.0 / 0.6 - 0.9 cm IVS Systolic Thickness 1.8 cm LVPW Diastolic Thickness 1.3 cm 0.6 - 1.0 / 0.6 - 0.9 cm LVPW Systolic Thickness 1.4 cm LVOT Diameter 1.9 cm LV Ejection Fraction 2D Teich 55.3 % LV Ejection Fraction MOD 2C 76.1 % LV Ejection Fraction 2C AL 76.5 % LA Diameter 3.7 cm Aorta at Sinotubular Diameter 2.9 cm IVC Diameter 1.0 cm M-MODE LA Ao Ratio MM 1.3 AV Cusp Separation MM 1.7 cm DOPPLER AV Peak Velocity 130.0 cm/s LVOT Peak Velocity 86.0 cm/s AV Area Cont Eq vti 2.4 cm squared AV Area Cont Eq pk 2.0 cm squared MV Area PHT 2.7 cm squared Mitral E to A Ratio 0.8 TR Peak Velocity 243.0 cm/s TR Peak Gradient 23.6 mmHg TV Peak E Velocity 46.0 cm/s Right Atrial Pressure 3.0 mmHg Pulmonary Artery Systolic Pressu 26.6 mmHg PV Peak Velocity 85.0 cm/s FINDINGS Left Ventricle Normal left ventricular size and systolic function, EF 76%. Moderate concentric left ventricular hypertrophy.no regional wall motion abnormalities. Grade I/IV diastolic dysfunction (abnormal relaxation filling pattern), normal to mildly elevated filling pressures. Right Ventricle The right ventricle is normal in size and function. Right Atrium The right atrium is normal in size. Left Atrium Mildly increased left atrial size. Mitral Valve No gross abnormalities noted Aortic Valve Thickened aortic valve. Tricuspid Valve Trace to mild tricuspid valve regurgitation. Estimated pulmonary artery peak systolic pressure 27 mmHg Pulmonic Valve No gross abnormalities noted Pericardium No pericardial effusion. Aorta Normal ascending aorta dimension. IVC Normal inferior vena cava. CONCLUSIONS Normal left ventricular size and systolic function, EF 76%. Moderate concentric left ventricular hypertrophy.no regional wall motion abnormalities. Grade I/IV diastolic dysfunction (abnormal relaxation filling pattern), normal to mildly elevated filling pressures. Mildly increased left atrial size. Thickened aortic valve. Trace to mild tricuspid valve regurgitation. Estimated pulmonary artery peak systolic pressure 27 mmHg. There is no pericardial effusion. There are no intracardiac masses. No similar previous studies are available for comparison Dr Lashell Moe MD [facility] (Electronically Signed) Final Date: 30 June 2023 13:00 S
--- NOTE | 2023-06-29 14:21 | CT_ITS ---
WS: [id number] CT ANGIOGRAM CEREBRAL AND CAROTID ARTERIES HISTORY: cva TECHNIQUE: CT angiogram is performed of the carotid and cerebral arteries. During arterial injection imaging is obtained from the skull vertex to the aortic arch in 1.25 mm imaging. Coronal and sagittal reformats are submitted. Additional multi planar reformats of the carotid and cerebral arteries are submitted, MIP imaging also reviewed. NASCET criteria utilized. [facility] CT [facility] at [facility] e at least one of these dose optimization techniques: automated exposure control; mA and/or kV adjust ment per patient size (includes targeted exams where dose is matched to clinical indication); or iter ative reconstruction. CONTRAST: Omnipaque 350; 100 mL IV. DLP: 751.57 mGy.cm COMPARISON: Noncontrast CT head 06/29/2023. Carotid Angiogram: Right carotid: Common carotid artery: Arises normally from the innominate artery. No significant plaque or stenosis. Internal carotid artery: Increasing plaque at the bifurcation with no high-grade stenosis. Stenosis e stimated at 36%. Very prominent loop of ICA proximal to the skull base. External carotid artery: Patent. Left carotid: Common carotid artery: Arises normally from the aorta. No significant plaque or stenosis. Internal carotid artery: Small amount of plaque at the bifurcation with no high-grade stenosis. Perce nt calculated stenosis 21%. External carotid artery: Patent. Right vertebral artery: Small caliber but patent. Left vertebral artery: Dominant. No stenosis or occlusion. Subclavian arteries: No stenosis or significant abnormality. Upper thorax: Emphysematous changes at the lung apices. Scarring bilaterally. Thyroid gland: Subcentimeter RIGHT thyroid nodule. Osseous structures: Osteopenia. Reversal of the normal cervical lordosis. CEREBRAL ANGIOGRAM: Intracranial vertebral arteries: Small caliber distal RIGHT vertebral artery. Normal LEFT vertebral a rtery. Basilar artery: No significant stenosis or occlusion. No aneurysm. Intracranial Internal carotid arteries: Mild plaque through the cavernous carotid arteries. No aneury sm. Middle cerebral arteries: Normal. Anterior cerebral arteries and ACOM: Normal. Posterior cerebral arteries and PCOM's: Normal. Dural venous sinuses are normally enhancing. Mastoid air cells: Normal. Paranasal sinuses: Normal. Calvarium: Normal. IMPRESSION: 1. Mild plaque in the cervical carotid artery bifurcations. No significant stenosis or thrombus. 2. Mild plaque through the cavernous portions of the intracranial carotid arteries no high-grade chino nosis or occlusion. 3. No cerebral artery aneurysm or thrombus.
[2023-06-29] MEDS: iohexol 350 mg/mL 500 mL Btl (per mL) IV (14:31)
[2023-06-29 15:59] LABS: INR 0.95 (0.8-1.2)
[2023-06-29 16:00] VITALS: BP 151/71; PULSE 68; RESP 16; TEMP 36.7; O2SAT 96
[2023-06-29 16:06] LABS: Ammonia 30 umol/L (11-51); Lactic Sepsis W/Reflex 0.6 mmol/L (0.5-2.2)
[2023-06-29 16:19] VITALS: BMI 23.0
[2023-06-29 16:33] LABS: Estmated Average Glucose 108; Hemoglobin A1C 5.4 % (4.0-6.0)
--- NOTE | 2023-06-29 16:33 | PM.HP ---
Providers/Chief Complaint Admitting Physician: Balta Quezada MD Primary Care Provider: Nancie Kenny MD Chief Complaint: ams History of Present Illness Ntaalia Jackson is a 77 year old female with a past medical history of dementia, cervical dystonia, on multiple psychotropic medications, who presents [facility] due to unresponsiveness and word finding difficulty. Currently patient is alert oriented x 3, following all commands, she does have chronic striding of her words which is chronic for her, but she according to family numbers has more word finding difficulty than her normal self. Patient tells me that at about 630 this morning she was woken up by the nursing staff at [place] were doing a bed past, I actually spoke to the nursing staff and they tell me that at that time when they woke her up she was a bit groggy but they had not noticed anything specific on her, she went back to bed she tells me that about at 8 or so she wanted to go do her laundry so she went into the laundry room, she got her laundry ready and she sat in the chair, soon as she sat in the chair, that is a lasting she remembers. According to the assisted, she was found around at 830 slumped over in the chair, nonresponsive, did not respond to sternal rub so EMS was called to the assisted. ER provider tells me that on arrival she was at times nonresponsive, her CT head was within normal limits, as she was watched in the ER she became much more responsive, but was noticed to have word finding difficulty, NIH stroke scale was as high as 2, she was not deemed a candidate for tPA, hospitalist team was called for admission, I had ordered a CTA head and neck to evaluate internal and external carotid arteries which were within normal limits, I also spoke to Dr. Davenport from cardiology, who recommended medical management with aspirin, Plavix, statin, permissive hypertension, IV fluids, patient was again evaluated up on [facility] she is alert awake following all commands, enjoying her Ann's meal with family members at bedside, she does not really have any particular complaints no slurring of her words no focal weakness, no trouble swallowing, she does tell me that she is fallen about 2 times in the last few weeks, now she has posterior neck pain, when asked her if she has any difficulty community kidding thoughts, she denies this, however family members tell me that the response time seen longer she does have chronic stuttering of her words, but did not she feels like she has more word finding difficulty, findings difficult to discern, given her stuttering Review of Systems Eyes: Denies: change in vision Card: Denies: chest pain Resp: Denies: dyspnea GI: Denies: abdominal pain : Denies: flank pain Musc: Reports: neck pain Neuro: Reports: frequent falls and difficulty communicating thoughts; Denies: headache(s), numbness in extremities, weakness in extremities, dizziness, Slurred speech present or seizure-like activity Medications/Allergies Home Medications Medication Instructions Recorded Confirmed Last Taken Type sulfasalazine 500 mg 0.5 g PO QAM 01/10/21 06/29/23 06/29/23 History tablet,delayed release escitalopram oxalate 10 mg tablet 10 mg PO QAM 05/15/22 06/29/23 06/29/23 History (Lexapro) cholecalciferol (vitamin D3) 125 125 mcg PO QAM 01/09/23 06/29/23 06/29/23 History mcg (5,000 unit) capsule mecobalamin (vitamin B12) 500 mcg 500 mcg PO QAM 01/09/23 06/29/23 06/29/23 History chewable tablet acetaminophen 325 mg tablet 325 - 650 mg PO Q6H PRN pain or 06/29/23 06/29/23 Unknown History fever acetaminophen 500 mg tablet 500 mg PO Q6H PRN pain or fever 06/29/23 06/29/23 06/29/23 History biotin 3,000 mcg-silicon dioxide 1 tab PO QAM 06/29/23 06/29/23 06/29/23 History 100 yc-U-cxvffyls 50 mg tablet ER ([place] Matrix Plus) toxqvnhsjxlmscnjwkobzz-ozzehzze-vdoausbq 1 - 2 drp ophthalmic (eye) Q2H PRN 06/29/23 06/29/23 06/16/23 History 80 0.5 %-1 %-0.5 % eye drops Dry Eyes (Refresh Digital) clonazepam 0.5 mg tablet 0.25 mg PO BID 06/29/23 06/29/23 06/29/23 History estradiol 0.01% (0.1 mg/gram) See Rx Instructions .Route .COMPLEX 06/29/23 06/29/23 04/30/23 History vaginal cream hydroxyzine HCl 25 mg tablet 25 mg PO TID PRN ANXIETY OR 06/29/23 06/29/23 05/26/23 History INSOMNIA ibuprofen 400 mg tablet 400 mg PO Q6H PRN PAIN OR FEVER 06/29/23 06/29/23 Unknown History loperamide 2 mg capsule 4 mg PO BID PRN Diarrhea 06/29/23 06/29/23 Unknown History quetiapine 50 mg tablet 50 mg PO QAM 06/29/23 06/29/23 06/29/23 History rivastigmine 9.5 mg/24 hour 9.5 mg transdermal QPM 06/29/23 06/29/23 06/28/23 History transdermal patch Allergies Allergy/AdvReac Type Severity Reaction Status Date / Time pseudoephedrine Allergy Intermediate ADR/ALGY-Hy Verified 04/02/23 14:48 potension PFSH Acute PFSH: Medical History (Updated 06/29/23 @ 16:41 by Balta Quezada MD) Narcolepsy without cataplexy Peripheral arterial disease Onychodystrophy Cervical dystonia Social History Smoking and tobacco/nicotine status: never used tobacco/nicotine Vitals/I&O/Wt Last Vital Signs Temp 98.0 F 06/29/23 16:00 Pulse 68 06/29/23 16:00 Resp 16 06/29/23 16:00 BP 151/71 06/29/23 16:00 Pulse Ox 96 06/29/23 16:00 O2 Del Method Room Air 06/29/23 16:00 Weight last 48 hrs Weight 57.153 kg Weight 83.915 kg Physical Exam Const: COMMON NORMALS: no acute distress and patient oriented x3 HENMT: COMMON NORMALS: normocephalic HEAD & SCALP: normocephalic Eye: COMMON NORMALS: Equal, round and reactive pupils present and EOMs intact bilaterally Neck/C-Spine: COMMON NORMALS: no JVD Lymph: LYMPHATIC: no lymphadenopathy noted Resp: COMMON NORMALS: normal respiratory effort, No retractions, No use of accessory muscles and clear to auscultation bilaterally AUSCULTATION: clear to auscultation bilaterally Cardio: COMMON NORMALS: no JVD, regular rate, regular rhythm, S1 normal heart sound present and S2 normal heart sound present RATE: regular rate RHYTHM: regular rhythm HEART SOUNDS: S1 normal heart sound present and S2 normal heart sound present GI: COMMON NORMALS: Normal to inspection, nondistended, normoactive bowel sounds present, Soft to palpation and non-tender : COMMON NORMALS: No no CVA tenderness Extremity: COMMON NORMALS: no pedal edema Neuro: COMMON NORMALS: patient oriented x3, CN's II-XII intact bilaterally, moves all extremities, no focal motor deficits and no sensory deficits noted Psych: COMMON NORMALS: mental status grossly normal Data 06/29/23 10:20 06/29/23 10:18 A&P Assessment and plan (1) Acute CVA (cerebrovascular accident): Plan Acute CVA -With word finding difficulty -Out of tPA window -NIH stroke scale on admission was 1-2 -For me it is difficult to assess NIH stroke scale, I would have it more at 1, she has stuttering of her words possibly with slight word finding difficulty but her start of her words makes it difficult to assess, no other focal neurologic deficit no facial droop no slurring of her words, no focal weakness, no paresthesias -Spoke to neurology, continue medical interventions, MRI -Spoke to ER provider Plan -Admit to MedSurg -Aspirin, statin, Plavix -Neuro checks, aspiration precautions and a stroke scale -Telemetry monitoring -Cardiac echo ? MRI of the brain -Bedside swallow eval if passes can advance diet as tolerated -CT of cervical spine as patient complains of cervical pain after her falls -Patient is DNR/DNI, confirmed with patient multiple times family members at bedside -Lovenox for DVT prophylaxis - Attestations Medical Necessity Statement*: Patient requires hospitalization, inpatient, greater than 2 midnight, for acute CVA Diagnoses Acute CVA (cerebrovascular accident) I63.9
--- NOTE | 2023-06-29 16:35 | CTR_ITS ---
PROCEDURE INFORMATION: Exam: CT Cervical Spine Without Contrast Exam date and time: 06/29/2023 8:38 PM Age: 77 years old Clinical indication: Injury or trauma; Fall; Other: Neck pain; Additional info: Fall neck pain TECHNIQUE: Imaging protocol: Computed tomography of the cervical spine without contrast. Radiation optimization: All CT scans at this facility use at least one of these dose optimization techniques: automated exposure control; mA and/or kV adjustment per patient size (includes targeted exams where dose is matched to clinical indication); or iterative reconstruction. COMPARISON: CT angio headneck* [id number] 06/29/2023 2:30 PM RADIATION DOSE METRICS: Total DLP (mGy-cm): 155.17 FINDINGS: Bones/joints: Mild curvature of the cervical spine convex to the left. There is straightening of cervical lordosis. No compression deformity vertebral bodies. Mild anterolisthesis of C3 over C4 and C4 over C5. Narrowing of the C5-C6 disc space with anterior and posterior osteophytes causing mild thecal sac compression. Lungs: Bilateral apical fibrotic changes. Vasculature: There are bilateral carotid and vertebral artery calcifications. Soft tissues: Unremarkable. CT/CT cervical spin wo con* [id number] IMPRESSION: No posttraumatic changes in the cervical spine.
[2023-06-29 16:46] LABS: Troponin 5 6HR 11.53 ng/L (0-10)
[2023-06-29 16:49] LABS: Troponin 5 6HR Delta -0.47 ng/L (0-12)
[2023-06-29 17:12] LABS: NT Pro B Type Natriuretic Pept 106 pg/mL (0-450); Procalcitonin 0.05 ng/mL (0-0.5); Thyroid Stimulating Hormone 3.69 uIU/mL (0.27-4.20)
[2023-06-29 17:24] LABS: Cholesterol 248 mg/dL (0-200); HDL Cholesterol 67 mg/dL (60-100); LDL Cholesterol Calculated 169 mg/dL (50-129); LDL HDL Ratio 2.52 RATIO (0.00-3.22); Phosphorus 3.2 mg/dL (2.5-4.5); Triglycerides 61 mg/dL (0-150)
[2023-06-29] MEDS: enoxaparin 40 mg/0.4 mL Syringe SUBCUT (17:32)
[2023-06-29] MEDS: pantoprazole 40 mg SDV IVP (17:32)
[2023-06-29] MEDS: aspirin 81 mg EC Tablet PO (17:33)
[2023-06-29] MEDS: clopidogrel 75 mg Tablet PO (17:33)
[2023-06-29] MEDS: CLONazepam 0.5 mg Tablet 0.25 MG PO (17:33)
[2023-06-29] MEDS: sodium chloride 0.9% 1,000 ML 100 ML IV (17:34)
[2023-06-29 18:11] VITALS: O2SAT 96
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
[2023-06-29 20:00] VITALS: BP 121/69; PULSE 69; RESP 18; TEMP 36.7; O2SAT 97
[2023-06-29] MEDS: LORazepam 2 mg/mL INJ 10 mL MDV 0.5 MG IVP (21:25)
[2023-06-30] VITALS (9 sets, daily range): BP systolic 128–174; BP diastolic 65–84; PULSE 58–108; RESP 16–20; TEMP 36.6–36.8; O2SAT 91–99
--- NOTE | 2023-06-30 00:48 | PC.NURSE ---
Echo: Patient very anxious about having US at the bedside for echo ordered. Says that he is creepy . Economic History Teacher assisted the patient with undressing her shirt while US tech waited in the hallway. Economic History Teacher stayed in the room with the patient during the entire procedure for her comfort. Assisted the patient with calling family afterwards.
--- NOTE | 2023-06-30 04:48 | PC.NURSE ---
Due to fall risk SCDs not applied. Patient refusing tele and IV fluids for half the night. Required 1:1 sitter since midnight due to patient confusion and not following safety instructions.
[2023-06-30 05:57] LABS: Basophils # 0.1 10^3/uL (0.0-0.1); Eosinophils # 0.1 10^3/uL (0.0-0.8); Eosinophils % 1.3 %; Hematocrit 40.3 % (36-47); Lymphocytes # 2.6 10^3/uL (0.8-4.8); Lymphocytes % 42.9 %; Mean Corpuscular HGB Conc 32.3 g/dL (30-55); Mean Corpuscular Hemoglobin 29.5 pg (27-33); Mean Corpuscular Volume 91.4 fl (85-98); Mean Platelet Volume 9.5 fL (7.4-10.4); Monocytes # 0.4 10^3/uL (0.2-0.9); Monocytes % 7.4 %; Neutrophils % 47.2 %; Nucleated Red Blood Cells % 0 %; Platelet Count 256 10^3/cmm (157-399); Red Blood Count 4.41 10^6/uL (3.85-5.65); Red Cell Distribution Width 13.6 % (12.1-15.1); White Blood Count 5.94 10^3/uL (3.29-11.43)
[2023-06-30 06:00] LABS: Add Urine Microscopic? NO; Charge for UA Resulting for Rev
[2023-06-30 06:09] LABS: Bilirubin Urine Neg (Negative); Blood Urine Neg (Negative); Glucose Urine UA Norm (Normal); Ketones Urine Negative (Negative); Leukocyte Esterase Urine Negative (Negative); Nitrate Urine Negative (Negative); Protein Urine Neg (Negative); Urine Appearance Clear (CLEAR); Urine Color Yellow (Yellow); Urobilinogen Urine Neg (Negative); pH Urine 6 (5-7)
[2023-06-30 06:22] LABS: Alanine Aminotransferase 21 U/L (0-33); Albumin Level 3.9 g/dL (3.5-5.2); Alkaline Phosphatase 64 U/L (35-105); Anion Gap 13.3 (5-19); Aspartate Amino Transferase 16 U/L (0-32); Blood Urea Nitrogen 13 mg/dL (8-23); Calcium 9.4 mg/dL (8.5-10.5); Carbon Dioxide 26 mmol/L (22-29); Chloride 105 mmol/L (98-107); Creatinine Clr Calc Pharmacy 48.4192; Globulin 2.4 g/dL (1.3-4.6); Glucose 97 mg/dL (65-115); Magnesium 2.1 mg/dL (1.7-2.3); Osmolality Calculated 290 mOsm/kg (285-295); Phosphorus 3.2 mg/dL (2.5-4.5); Potassium 4.3 mmol/L (3.5-5.1); Sodium 140 mmol/L (136-145); Total Bilirubin 0.5 mg/dL (0.15-1.2); Total Protein 6.3 g/dL (6.6-8.7)
[2023-06-30] MEDS: cyanocobalamin 1,000 mcg Tablet 500 MCG PO (06:24)
[2023-06-30] MEDS: escitalopram 10 mg Tablet PO (06:25)
[2023-06-30] MEDS: quetiapine 25 mg Tablet 50 MG PO (06:25)
[2023-06-30 06:31] LABS: NT Pro B Type Natriuretic Pept 123 pg/mL (0-450)
[2023-06-30] MEDS: CLONazepam 0.5 mg Tablet 0.25 MG PO ×2 (08:51→17:03)
[2023-06-30] MEDS: clopidogrel 75 mg Tablet PO (08:51)
[2023-06-30] MEDS: aspirin 81 mg EC Tablet PO (08:51)
--- NOTE | 2023-06-30 09:00 | MR_ITS ---
WS: [id number] MRI HEAD WITHOUT CONTRAST TECHNIQUE: Sagittal T1, T2 axial, T2 axial FLAIR, axial and coronal T1 images, axial susceptibility w eighted imaging, axial diffusion weighted images, and coronal T2 images were obtained. CLINICAL INFORMATION: word finding difficulty COMPARISON: CT 06/29/2023 FINDINGS: No evidence of restricted diffusion to suggest acute ischemia. Ventricular system and basal cisterns are patent. Moderate small vessel changes. Moderate parenchymal volume loss. Small vessel changes in the arlene. Tiny chronic lacunar infarct LEFT cerebellum. Normal vascular flow voids at the skull base. No extra-axial fluid collections. No evidence of mass or mass effect. Paranasal sinuses and mastoid air cells are well aerated. Normal posterior nasopharynx and parapharyngeal fat. Chronic lacunar infa rct LEFT thalamus. No hemosiderin on the susceptibility weighted images. Normal optic chiasm and pituitary infundibulum. Moderate to advanced symmetric atrophy temporal lobes and hippocampal formations. IMPRESSION: 1. No evidence of restricted diffusion to suggest acute ischemia. 2. Moderate small vessel changes with moderate parenchymal volume loss. Small vessel changes in the arlene. 3. Chronic lacunar infarct LEFT thalamus. 4. No hemosiderin on susceptibility-weighted images. 5. Moderate to advanced symmetric atrophy temporal lobes and hippocampal formations.
--- NOTE | 2023-06-30 11:03 | P.DS_ITS ---
Discharge Providers Date of Admission: 06/29/23 16:32 Date of Discharge: June 30, 2023 Attending Provider at Admission: Balta Quezada MD Attending Provider at Discharge: Balta Quezada MD Primary Care Provider: Nancie Kenny MD Diagnoses at Discharge Discharge Diagnosis (1) Syncope: Status: Acute Reason for Visit Reason for Visit: [facility] Hospital Course Hospital Course Natalia Jackson is a 77 year old female with a past medical history of dementia, cervical dystonia, on multiple psychotropic medications, who presents [facility] due to unresponsiveness and word finding difficulty. Currently patient is alert oriented x 3, following all commands, she does have chronic striding of her words which is chronic for her, but she according to family numbers has more word finding difficulty than her normal self. Patient tells me that at about 630 this morning she was woken up by the nursing staff at [facility] were doing a bed past, I actually spoke to the nursing staff and they tell me that at that time when they woke her up she was a bit groggy but they had not noticed anything specific on her, she went back to bed she tells me that about at 8 or so she wanted to go do her laundry so she went into the laundry r oom, she got her laundry ready and she sat in the chair, soon as she sat in the chair, that is a lasting she remembers. According to the [facility], she was found around at 830 slumped over in the chair, nonresponsive, did not respond to sternal rub so EMS was called to the [facility]. ER provider tells me that on arrival she was at times nonresponsive, her CT head was within normal limits, as she was watched in the ER she became much more responsive, but was noticed to have word finding difficulty, NIH stroke scale was as high as 2, she was not deemed a candidate for tPA, hospitalist team was called for admission, I had ordered a CTA head and neck to evaluate internal and external carotid arteries which were within normal limits, I also spoke to Dr. Davenport from cardiology, who recommended medical management with aspirin, Plavix, statin, permissive hypertension, IV fluids, patient was again evaluated up on [facility] she is alert awake following all commands, enjoying her Ann's meal with family members at bedside, she does not really have any particular complaints no slurring of her words no focal weakness, no trouble swallowing, she does tell me that she is fallen about 2 times in the last few weeks, now she has posterior neck pain, when asked her if she has any difficulty community kidding thoughts, she denies this, however family members tell me that the response time seen longer she does have chronic stuttering of her words, but did not she feels like she has more word finding difficulty, findings difficult to discern, given her stuttering Patient was admitted to [facility] for concerns for acute CVA, with word finding difficulty out of tPA window, and a stroke scale admission was 1-2, during my examination it was difficult to assess her word finding difficulty due to her severe stuttering of words no focal weakness no paresthesias head CT was within normal limits, head CTA was within normal limit she was managed on aspirin, statin, Plavix, neurochecks, telemetry monitoring, MRI of the brain, shows chronic lacunar infarct left thalamus On discharge she remains alert oriented x 3, following all commands ambulatory, no focal weakness has persistent stuttering her words does have at times word finding difficulties, nonetheless discharged on aspirin 81 mg, statin, Plavix for 20 remaining days then stop follow-up with neurology as outpatient, ordered event monitor at discharge During hospitalization, patient had voiced feeling down and depressed, previous suicidal ideation, no active suicidal ideation, was upset that she had to be at [facility], no plan, seen by psychiatry Physical Exam Const: COMMON NORMALS: no acute distress and patient oriented x3 Resp: COMMON NORMALS: normal respiratory effort, No retractions, No use of accessory muscles and clear to auscultation bilaterally AUSCULTATION: clear to auscultation bilaterally Cardio: COMMON NORMALS: regular rate, regular rhythm, S1 normal heart sound present and S2 normal heart sound present RATE: regular rate RHYTHM: regular rhythm HEART SOUNDS: S1 normal heart sound present and S2 normal heart sound present GI: COMMON NORMALS: Normal to inspection, nondistended, normoactive bowel sounds present and non-tender Extremity: COMMON NORMALS: no pedal edema Neuro: COMMON NORMALS: patient oriented x3 Psych: COMMON NORMALS: mental status grossly normal Discharge Data Studies Completed and Pending Completed Studies During Hospitalization Category Date Time Status CT angio head neck [CT angio headneck* [id number]] Cat Scan 06/29/23 14:[address] cervical spine wo con [CT cervical spin wo con* Cat Scan 06/29/23 16:35 Completed [id number]] Routine CT head wo con* [id number] Stat Cat Scan 06/29/23 10:49 Completed XR chest 1V portable [id number] Stat Exams 06/29/23 10:12 Completed Pending at discharge Category Date Time Status Complete Blood Count w/Auto AM LABS Lab 07/01/23 04:00 Ordered Complete Blood Count w/Auto AM LABS Lab 07/02/23 04:00 Ordered Comprehensive Metabolic Panel AM LABS Lab 07/01/23 04:00 Ordered Comprehensive Metabolic Panel AM LABS Lab 07/02/23 04:00 Ordered Magnesium AM LABS Lab 07/01/23 04:00 Ordered Magnesium AM LABS Lab 07/02/23 04:00 Ordered NT Pro B Type Natriuretic Pept QAM Lab 07/01/23 06:00 Ordered NT Pro B Type Natriuretic Pept QAM Lab 07/02/23 06:00 Ordered Phosphorus AM LABS Lab 07/01/23 04:00 Ordered Phosphorus AM LABS Lab 07/02/23 04:00 Ordered MR head wo con* [id number] Routine MRI 06/30/23 09:00 Ordered CV. echo complete* [id number] Routine Ultrasound 06/29/23 14:21 Taken Radiology Impressions Chest X-Ray 06/29/23 10:12 IMPRESSION: No acute disease. Cervical Spine CT 06/29/23 16:35 IMPRESSION: No posttraumatic changes in the cervical spine. Laboratory Results WBC 5.94 10^3/uL (3.29-11.43) 06/30/23 05:35 RBC 4.41 10^6/uL (3.85-5.65) 06/30/23 05:35 Hgb 13.00 g/dL (11.27-16.99) 06/30/23 05:35 Hct 40.3 % (36-47) 06/30/23 05:35 MCV 91.4 fl (85-98) 06/30/23 05:35 MCH 29.5 pg (27-33) 06/30/23 05:35 MCHC 32.3 g/dL (30-55) 06/30/23 05:35 RDW 13.6 % (12.1-15.1) 06/30/23 05:35 Plt Count 256 10^3/cmm (157-399) 06/30/23 05:35 MPV 9.5 fL (7.4-10.4) 06/30/23 05:35 Neut % (Auto) 47.2 % 06/30/23 05:35 Lymph % (Auto) 42.9 % 06/30/23 05:35 [place] % (Auto) 7.4 % 06/30/23 05:35 Eos % (Auto) 1.3 % 06/30/23 05:35 Baso % (Auto) 1.0 % 06/30/23 05:35 Neut # (Auto) 2.80 10^3/uL (1.8-7.7) 06/30/23 05:35 Lymph # (Auto) 2.6 10^3/uL (0.8-4.8) 06/30/23 05:35 [place] # (Auto) 0.4 10^3/uL (0.2-0.9) 06/30/23 05:35 Eos # (Auto) 0.1 10^3/uL (0.0-0.8) 06/30/23 05:35 Baso # (Auto) 0.1 10^3/uL (0.0-0.1) 06/30/23 05:35 Nucleated RBC % (auto) 0 % 06/30/23 05:35 Nucleated RBCs # 0.0 /100WBC 06/30/23 05:35 PT 12.90 SECONDS (12.1-14.9) 06/29/23 15:30 INR 0.95 (0.8-1.2) 06/29/23 15:30 Sodium 140 mmol/L (136-145) 06/30/23 05:35 Potassium 4.3 mmol/L (3.5-5.1) 06/30/23 05:35 Chloride 105 mmol/L (98-107) 06/30/23 05:35 Carbon Dioxide 26 mmol/L (22-29) 06/30/23 05:35 Anion Gap 13.3 (5-19) 06/30/23 05:35 BUN 13 mg/dL (8-23) 06/30/23 05:35 Creatinine 0.6 mg/dL (0.5-0.9) 06/30/23 05:35 GFR Calculation Not Reportable 06/30/23 05:35 Glucose 97 mg/dL (65-115) 06/30/23 05:35 Estimat Average Glucose 108 06/29/23 10:20 Hemoglobin A1c 5.4 % (4.0-6.0) 06/29/23 10:20 Calculated Osmolality 290 mOsm/kg (285-295) 06/30/23 05:35 Lactic Acid 0.6 mmol/L (0.5-2.2) 06/29/23 15:30 Calcium 9.4 mg/dL (8.5-10.5) 06/30/23 05:35 Phosphorus 3.2 mg/dL (2.5-4.5) 06/30/23 05:35 Magnesium 2.1 mg/dL (1.7-2.3) 06/30/23 05:35 Total Bilirubin 0.5 mg/dL (0.15-1.2) 06/30/23 05:35 AST 16 U/L (0-32) 06/30/23 05:35 ALT 21 U/L (0-33) 06/30/23 05:35 Alkaline Phosphatase 64 U/L (35-105) 06/30/23 05:35 Ammonia 30 umol/L (11-51) 06/29/23 15:30 Troponin T Baseline 12 ng/L (0-10) H 06/29/23 10:18 Troponin T 120 Minute 10.73 ng/L (0-10) H 06/29/23 12:08 Delta Troponin T -1.27 ABS# (0-10) L 06/29/23 12:08 Troponin T Hi Sens 6Hr 11.53 ng/L (0-10) H 06/29/23 16:12 Troponin T Hi Sens 6Hr Delta -0.47 ng/L (0-12) L 06/29/23 16:12 C-Reactive Protein 3.0 mg/L (0.0-4.9) 06/29/23 16:12 NT-Pro-B Natriuret Pep 123 pg/mL (0-450) 06/30/23 05:35 Total Protein 6.3 g/dL (6.6-8.7) L 06/30/23 05:35 Albumin 3.9 g/dL (3.5-5.2) 06/30/23 05:35 Globulin 2.4 g/dL (1.3-4.6) 06/30/23 05:35 Triglycerides 61 mg/dL (0-150) 06/29/23 16:12 Cholesterol 248 mg/dL (0-200) H 06/29/23 16:12 LDL Cholesterol, Calc 169 mg/dL (50-129) H 06/29/23 16:12 HDL Cholesterol 67 mg/dL (60-100) 06/29/23 16:12 LDL/HDL Ratio 2.52 RATIO (0.00-3.22) 06/29/23 16:12 Cholesterol/HDL Ratio 3.70 mg/dL (0.0-4.40) 06/29/23 16:12 Procalcitonin 0.05 ng/mL (0-0.5) 06/29/23 16:12 TSH 3.69 uIU/mL (0.27-4.20) 06/29/23 16:12 Urine Color Yellow (Yellow) 06/30/23 04:15 Urine Appearance Clear (CLEAR) 06/30/23 04:15 Urine pH 6 (5-7) 06/30/23 04:15 Ur Specific [place] 1.010 (1.005-1.030) 06/30/23 04:15 Urine Protein Neg (Negative) 06/30/23 04:15 Urine Glucose (UA) Norm (Normal) 06/30/23 04:15 Urine Ketones Negative (Negative) 06/30/23 04:15 Urine Blood Neg (Negative) 06/30/23 04:15 Urine Nitrate Negative (Negative) 06/30/23 04:15 Urine Bilirubin Neg (Negative) 06/30/23 04:15 Urine Urobilinogen Neg mg/dL (Negative) 06/30/23 04:15 Ur Leukocyte Esterase Negative (Negative) 06/30/23 04:15 Vitals Last Vital Signs Temp 98.2 F 06/30/23 08:00 Pulse 74 06/30/23 08:00 Resp 18 06/30/23 08:00 BP 161/66 06/30/23 08:00 Pulse Ox 96 06/30/23 08:00 O2 Del Method Room Air 06/29/23 18:11 Discharge Plan Discharge Patient Disposition: Home Condition: Stable Prescriptions: New clopidogrel 75 mg Tablet 75 mg PO DAILY 20 Days Qty: 20 0RF aspirin 81 mg Tablet,Delayed Release (Dr/Ec) 81 mg PO DAILY 30 Days Qty: 30 0RF atorvastatin 40 mg tablet 40 mg PO DAILY 30 Days Qty: 30 0RF folic acid 1 mg Tablet 1 mg PO BID 30 Days Qty: 60 0RF Continued sulfasalazine 500 mg tablet,delayed release (DR/EC) 0.5 g PO QAM escitalopram oxalate [Lexapro] 10 mg tablet 10 mg PO QAM cholecalciferol (vitamin D3) 125 mcg (5,000 unit) Capsule 125 mcg PO QAM mecobalamin (vitamin B12) 500 mcg Tablet,Chewable 500 mcg PO QAM quetiapine 50 mg tablet 50 mg PO QAM [place] Matrix Plus 3,000 mcg -100 mg-50 mg Tablet Extended Release 1 tab PO QAM acetaminophen 325 mg Tablet 325 - 650 mg PO Q6H PRN (Reason: pain or fever) loperamide 2 mg capsule 4 mg PO BID PRN (Reason: Diarrhea) clonazepam 0.5 mg tablet 0.25 mg PO BID acetaminophen 500 mg Tablet 500 mg PO Q6H PRN (Reason: pain or fever) hydroxyzine HCl 25 mg tablet 25 mg PO TID PRN (Reason: ANXIETY OR INSOMNIA) estradiol 0.01 % (0.1 mg/gram) cream See Rx Instructions .ROUTE .COMPLEX Rx Instructions: INSERT 1/2 GRAM VAGINALLY TWICE A WEEK FOR VAGINAL ATROPHY. Refresh Digital 0.5-1-0.5 % Drops 1 - 2 drp OPHTHALMIC (EYE) Q2H PRN (Reason: Dry Eyes) Discontinued rivastigmine 9.5 mg/24 hour patch 24 hour 9.5 mg transdermal QPM Rx Instructions: 1 patch daily ibuprofen 400 mg tablet 400 mg PO Q6H PRN (Reason: PAIN OR FEVER) Discharge Orders: Discharge Order (Routine); Ordered 07/01/23 Ordered By: Balta Quezada Other Ambulatory Orders: MCT/Event Monitor 30 Days (Routine) Timeframe: 1 Day Facility: [facility] - Location: Radiology Ordered By: Balta Quezada Referrals: [facility] [Other] Nancie Kenny MD [Primary Care Provider] - (We have notified your physician's clinic of the need for a follow-up appointment to be scheduled. If you have not heard from them within the next 2 business days, please call them directly. ) Leobardo Davenport MD [Physician] - 2 weeks (cva We have notified your physician's clinic of the need for a follow-up appointment to be scheduled. If you have not heard from them within the next 2 business days, please call them directly. ) Tutu Duong M.D [Physician] - 1 month (event monitor We have notified your physician's clinic of the need for a follow-up appointment to be scheduled. If you have not heard from them within the next 2 business days, please call them directly. ) Discharge Diet: Cardiac Discharge Activity: Resume usual activity Patient Instructions: Aspirin (By mouth), Atorvastatin (By mouth) (Lipitor, Atorvaliq), Clopidogrel (By mouth) (Plavix), Transient Ischemic Attack (DC), Syncope (DC), Altered Mental Status (ED), Opioid Safety, Stroke Stoplight Activity Restrictions/Additional Instructions: Appointment for Cardiac Event Monitor is scheduled for 07/08/23 @ 1pm. Please ar rubene to [facility] 15 minutes prior to appointment. - If any recurrent strokelike symptoms please call 911 -Please follow-up with neurology -Please continue aspirin 81 mg -Continue statin -Plavix for 21 remaining days then stop Discharge Attestations Time Spent in Discharge Care*: greater than 30 min Quality Metrics Clinical Quality Measures [ No reported AMI, CVA or VTE this stay] Coding Level of Care Code Acute Code for Chg Fwd Diagnoses Syncope R55
--- NOTE | 2023-06-30 13:45 | P.PN_ITS ---
Subjective 2 Subjective: - Patient was seen this morning, early t his morning she was alert oriented x 3, following all commands, she was actually seen getting up to use the bathroom, she is excited about going home no facial droop no slurring of words, does have at times word finding difficulties, but does have stuttering of her words which is difficult to distinguish, no focal weakness we discussed with her doing an MRI of her brain before her discharge ? MRI brain performed, shows small thalamic lacunar infarct ? Cardiac echocardiogram shows mild LVH, within normal limits, ? Event monitor ordered, ? Thought patient's symptomatology could be a TIA versus syncopal episode ? I was going to go and see patient to speak to her family to hopefully discharge her, ? Patient was seen with her family members, she was on the floor, sitting, she according to family member she had gotten into an argument due to increased confusion turned around and walked into the wall, she then slowly slid to the floor no significant trauma, but did hit her head, currently she is alert to person, not to place, not to time she follows commands unable to get her up off the floor with the help of her son, and we get her back into bed, I was able to do focal neurologic testing no focal weakness no slurring of words equal upper lower extremity strength, good heel to monterroso bilaterally, she is able to smile for me she is able to follow commands, she is alert to person, now to place, not to time, ? During my conversation with family members we had extensive discussion about her TIA versus syncopal episode, now with her encephalopathy and her delirium, so far all testing has been within normal limits, UA within normal limits, electrolytes within normal and she been afebrile she did have episodes of confusion throughout the night, did require 2 doses of Ativan for confusion ? Seen this morning she was quite alert and awake following all commands but seems this afternoon she has become increasingly confused, and agitated, ? She during my examination, does have episodes of delirium, she is talking about things that do not make sense ? Plan is to continue to monitor in the hospital, bedside one-to-one sitter, ? Will do orthostatic vitals, she has has not been getting her rivastigmine withdrawing from this -The other thought I was honest with quinton roberto that this could be sundowning, or increased confusion as she is in a unfamiliar environment, and my concern was a the longer that she is going to be here today more increasingly she will become confused, family is possible considering moving her to more of a long-term care facility more of an assisted living facility rather than [place] -On examination this afternoon, as she h ad turned around and hit her head against a cabinet area is measuring 1 x 1 cm, mild erythema slight swelling As she does not have any other joint complaints, no complaints of her hips, no complaints of her knees,, ? Based on clinical progress will consider head CT and further imaging, no loss of consciousness -We do not have rivastigmine patches her e in the hospital, called outpatient pharmacy we do have the pills, I will order her 5 days of pills while she is here in the hospital, 3 mg every 8 hours as she is on rivastigmine 9.5 mg every 24 hours will have nursing staff picking machine operator the pill so she can get it here possibly rivastigmine withdrawal? -Will check orthostatic vitals Vitals/I&O/Wt Last Vital Signs Temp 97.8 F 06/30/23 13:35 Pulse 69 06/30/23 13:35 Resp 16 06/30/23 13:35 BP 163/82 06/30/23 13:35 Pulse Ox 99 06/30/23 13:35 O2 Del Method Room Air 06/30/23 13:35 06/29/23 06/30/23 06/30/23 22:59 06:59 14:59 Intake Total 240 / 240 1480 / 1720 480 / 480 Balance 240 / 240 1480 / 1720 480 / 480 Weight last 48 hrs Weight 57.153 kg Weight 57.153 kg Weight 83.915 kg Physical Exam 2 Const: COMMON NORMALS: no acute distress Resp: COMMON NORMALS: normal respiratory effort, No retractions, No use of accessory muscles and clear to auscultation bilaterally AUSCULTATION: clear to auscultation bilaterally Cardio: COMMON NORMALS: regular rate, regular rhythm, S1 normal heart sound present and S2 normal heart sound present RATE: regular rate RHYTHM: r egular rhythm HEART SOUNDS: S1 normal heart sound present and S2 normal heart sound present GI: COMMON NORMALS: Normal to inspection, nondistended, normoactive bowel sounds present and non-tender Extremity: COMMON NORMALS: no pedal edema Psych: COMMON NORMALS: mental status grossly normal Skin: NARRATIVE SKIN EXAM: Right elbow, skin tear, measuring 1 cm long, mild bleeding, dressed by nursing staff Data 06/30/23 05:35 06/30/23 05:35 A&P Assessment and plan (1) Acute CVA (cerebrovascular accident): (2) Acute encephalopathy: Plan Acute CVA VS TIA VS syncope -With word finding difficulty -Out of tPA window -NIH stroke scale on admission was 1-2 -For me it is difficult to assess NIH stroke scale, I would have it more at 1, she has stuttering of her words possibly with slight word finding difficulty but her start of her words makes it difficult to assess, no other focal neurologic deficit no facial droop no slurring of her words, no focal weakness, no paresthesias -Spoke to neurology, continue medical interventions, MRI -Spoke to ER provider, Plan -Admit to MedSurg -Aspirin, statin, Plavix -Neuro checks, aspiration precautions and a stroke scale -Telemetry monitoring -Bedside swallow eval if passes can advance diet as tolerated -CT of cervical spine as patient complains of cervical pain after her falls -Patient is DNR/DNI, confirmed with patient multiple times family members at bedside -Lovenox for DVT prophylaxis -- Patient was seen this morning, early this morning she was alert oriented x 3, following all commands, she was actually seen getting up to use the bathroom, she is excited about going home no facial droop no slurring of words, does have at times word finding difficulties, but does have stuttering of her words which is difficult to distinguish, no focal weakness we discussed with her doing an MRI of her brain before her discharge ? MRI brain performed, shows small thalamic lacunar infarct ? Cardiac echocardiogram shows mild LVH, within normal limits, ? Event monitor ordered, ? Thought patient's symptomatology could be a TIA versus syncopal episode ? I was going to go and see patient to speak to her family to hopefully discharge her, ? Patient was seen with her family members, she was on the floor, sitting, she according to family member she had gotten into an argument due to increased confusion turned around and walked into the wall, she then slowly slid to the floor no significant trauma, but did hit her head, currently she is alert to person, not to place, not to time she follows commands unable to get her up off the floor with the help of her son, and we get her back into bed, I was able to do focal neurologic testing no focal weakness no slurring of words equal upper lower extremity strength, good heel to monterroso bilaterally, she is able to smile for me she is able to follow commands, she is alert to person, now to place, not to time, ? During my conversation with family members we had extensive discussion about her TIA versus syncopal episode, now with her encephalopathy and her delirium, so far all testing has been within normal limits, UA within normal limits, electrolytes within normal and she been afebrile she did have episodes of confusion throughout the night, did require 2 doses of Ativan for confusion ? Seen this morning she was quite alert and awake following all commands but seems this afternoon she has become increasingly confused, and agitated, ? She during my examination, does have episodes of delirium, she is talking about things that do not make sense ? Plan is to continue to monitor in the hospital, bedside one-to-one sitter, ? Will do orthostatic vitals, she has has not been getting her rivastigmine withdrawing from this -The other thought I was honest with family that this could be sundowning, or increased confusion as she is in a unfamiliar environment, and my concern was a the longer that she is going to be here today more increasingly she will become confused, family is possible considering moving her to more of a long-term care facility more of an assisted living facility rather than [place] -On examination this afternoon, as she had turned around and hit her head against a cabinet area is measuring 1 x 1 cm, mild erythema slight swelling As she does not have any other joint complaints, no complaints of her hips, no complaints of her knees,, ? Based on clinical progress will consider head CT and further imaging, no loss of consciousness Attestations 2 Medical Necessity Statement*: Patient requires hospitalization for acute encephalopathy, TIA versus syncope, inpatient, greater than 2 minutes Diagnoses Acute CVA (cerebrovascular accident) I63.9 Acute encephalopathy G93.40
--- NOTE | 2023-06-30 14:46 | PC.OT ---
patient had a fall and is very agitated. her daughter is present in her room. she is resting with an ice pack on her head. ot to hold eval today per family request.
[2023-06-30 16:30] LABS: Vitamin B12 879 pg/mL (232-1245)
[2023-06-30] MEDS: pantoprazole DR 40 mg Tablet PO (17:03)
[2023-06-30] MEDS: enoxaparin 40 mg/0.4 mL Syringe SUBCUT (17:04)
[2023-06-30 18:13] LABS: Folate Level 4.6 ng/mL (4.8-37.3)
--- NOTE | 2023-07-01 03:00 | PC.NURSE ---
pt was in bathroom for awhile this flex o writer operator had to redirect pt off of the toilet and back to bed. pt is currently sitting on side of bed eating a sandwich and crackers
[2023-07-01 03:43] VITALS: BP 130/65; PULSE 18; RESP 88; TEMP 37.2; O2SAT 98
[2023-07-01 04:53] LABS: Basophils # 0.1 10^3/uL (0.0-0.1); Eosinophils # 0.1 10^3/uL (0.0-0.8); Eosinophils % 1.6 %; Hematocrit 39.8 % (36-47); Lymphocytes # 2.1 10^3/uL (0.8-4.8); Lymphocytes % 33.7 %; Mean Corpuscular HGB Conc 31.9 g/dL (30-55); Mean Corpuscular Hemoglobin 29.7 pg (27-33); Mean Platelet Volume 9.7 fL (7.4-10.4); Monocytes # 0.5 10^3/uL (0.2-0.9); Monocytes % 7.4 %; Neutrophils # 3.41 10^3/uL (1.8-7.7); Neutrophils % 56.1 %; Nucleated Red Blood Cells % 0 %; Platelet Count 255 10^3/cmm (157-399); Red Blood Count 4.28 10^6/uL (3.85-5.65); Red Cell Distribution Width 13.6 % (12.1-15.1); White Blood Count 6.08 10^3/uL (3.29-11.43)
[2023-07-01 05:21] LABS: NT Pro B Type Natriuretic Pept 150 pg/mL (0-450)
[2023-07-01 05:22] LABS: Alanine Aminotransferase 19 U/L (0-33); Albumin Level 3.8 g/dL (3.5-5.2); Alkaline Phosphatase 62 U/L (35-105); Anion Gap 14.5 (5-19); Aspartate Amino Transferase 15 U/L (0-32); Blood Urea Nitrogen 14 mg/dL (8-23); Calcium 9.4 mg/dL (8.5-10.5); Carbon Dioxide 24 mmol/L (22-29); Chloride 104 mmol/L (98-107); Creatinine Clr Calc Pharmacy 48.4192; Globulin 2.3 g/dL (1.3-4.6); Glucose 105 mg/dL (65-115); Osmolality Calculated 287 mOsm/kg (285-295); Phosphorus 3.4 mg/dL (2.5-4.5); Potassium 4.5 mmol/L (3.5-5.1); Sodium 138 mmol/L (136-145); Total Bilirubin 0.5 mg/dL (0.15-1.2); Total Protein 6.1 g/dL (6.6-8.7)
[2023-07-01] MEDS: cyanocobalamin 1,000 mcg Tablet 500 MCG PO (05:57)
[2023-07-01] MEDS: escitalopram 10 mg Tablet PO (05:57)
[2023-07-01] MEDS: quetiapine 25 mg Tablet 50 MG PO (05:57)
[2023-07-01 08:00] VITALS: BP 126/72; PULSE 64; RESP 16; TEMP 36.8; O2SAT 94
[2023-07-01] MEDS: clopidogrel 75 mg Tablet PO (08:20)
[2023-07-01] MEDS: pantoprazole DR 40 mg Tablet PO (08:20)
[2023-07-01] MEDS: CLONazepam 0.5 mg Tablet 0.25 MG PO (08:20)
[2023-07-01] MEDS: aspirin 81 mg EC Tablet PO (08:21)
[2023-07-01] MEDS: folic acid 1 mg Tablet PO (08:49)
[2023-07-01 10:19] LABS: Add Urine Culture? No; Add Urine Microscopic? YES; Bacteria Urine TRACE /hpf; Bilirubin Urine Neg (Negative); Blood Urine Neg (Negative); Glucose Urine UA Norm (Normal); Ketones Urine Negative (Negative); Leukocyte Esterase Urine 1+ (Negative); Nitrate Urine Negative (Negative); Protein Urine Neg (Negative); RBC Urine 0-4 /hpf (0-2); Squamous Epithelial Cell Urine 0-4 /hpf (0-5); Urine Appearance Clear (CLEAR); Urine Color Yellow (Yellow); Urobilinogen Urine Norm (Negative); WBC Urine 0-4 /hpf (0-5); pH Urine 6.5 (5-7)
[2023-07-01 12:00] VITALS: BP 128/66; PULSE 72; RESP 16; TEMP 36.9; O2SAT 96
--- NOTE | 2023-07-01 12:03 | PC.NURSE ---
kevin pending consult with Dr. Sotomayor
[2023-07-01 16:00] VITALS: BP 126/64; PULSE 66; RESP 16; TEMP 36.8
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
== END 2023-07-01 16:57 | disposition home or self-care (01) | DRG 69 ==
LOC: ER 10:58 → MEDSURG 14:28
PROVIDERS: Admitting Provider Family Medicine; Emergency Provider Family Medicine; PCP Internal Medicine; Visit Provider Family Medicine
DX: G45.9 Transient cerebral ischemic attack, unspecified (principal); G93.40 Encephalopathy, unspecified; G30.1 Alzheimer's disease with late onset; F02.80 Dementia in other diseases classified elsewhere, unspecified severity, without behavioral disturbance, psychotic disturbance, mood disturbance, and anxiety; G47.419 Narcolepsy without cataplexy; I73.9 Peripheral vascular disease, unspecified; F32.A Depression, unspecified; Z86.73 Personal history of transient ischemic attack (TIA), and cerebral infarction without residual deficits
CPT/HCPCS: 36415; 70450; 70496; 70498; 70551; 71045; 72125; 80053; 80061; 81001; 81003; 82140; 82607; 82746; 83036; 83605; 83735; 83880; 84100; 84145; 84443; 84484; 85025; 85610; 86140; 92523; 92610; 93005; 93306; 94664; 96372; 97116; 97161; 97165; 97530; 99285; C9113; J1650; J2060; J7030; Q9967

== ENCOUNTER → 2023-07-02 11:51 | Outpatient (BNVA) | payer MEDICARE, BC, SELFPAY | PROVIDERS: PCP Internal Medicine; Visit Provider Specialist | DX: G24.3 Spasmodic torticollis (principal); I73.9 Peripheral vascular disease, unspecified; G45.9 Transient cerebral ischemic attack, unspecified; G30.9 Alzheimer's disease, unspecified; F02.80 Dementia in other diseases classified elsewhere, unspecified severity, without behavioral disturbance, psychotic disturbance, mood disturbance, and anxiety; G47.419 Narcolepsy without cataplexy | CPT/HCPCS: 64616; 99215; J0585 ==

== ENCOUNTER → 2023-07-08 11:22 | Outpatient (BNVA) | payer MEDICARE, BC, SELFPAY | PROVIDERS: PCP Internal Medicine; Visit Provider Podiatrist Foot & Ankle Surgery | DX: L60.8 Other nail disorders (principal); L60.3 Nail dystrophy; I73.9 Peripheral vascular disease, unspecified | CPT/HCPCS: 11721 ==

== ENCOUNTER 2023-07-10 11:17 | Emergency (ER) | payer MEDICARE, BC, SELFPAY ==
[2023-07-10 11:20] VITALS: BP 153/76; PULSE 61; RESP 17; TEMP 36.4; O2SAT 97; BMI 21.7
--- NOTE | 2023-07-10 11:25 | CTR_ITS ---
PROCEDURE INFORMATION: Exam: CT Head Without Contrast Exam date and time: 07/10/2023 12:13 PM Age: 77 years old Clinical indication: Altered mental status/memory loss TECHNIQUE: Imaging protocol: Computed tomography of the head without contrast. Radiation optimization: All CT scans at this facility use at least one of these dose optimization techniques: automated exposure control; mA and/or kV adjustment per patient size (includes targeted exams where dose is matched to clinical indication); or iterative reconstruction. COMPARISON: MR head wo con* [id number] 06/30/2023 11:00 AM RADIATION DOSE METRICS: Total DLP (mGy-cm): 1134.29 FINDINGS: Brain: Moderate generalized atrophy and chronic microvascular ischemic changes on both cerebral hemispheres without evidence of acute intracranial hemorrhage or mass effect. No subdural collections are seen. Possible very small arachnoid cyst , left parafalcine at the vertex, not significant. No subdural collections are seen. There are extensive calcifications of the vertebral and carotid vessels at the skull base. Cerebral ventricles: Ventricles stable size and position compared to 06/30/2023 MRI. No midline shift. Paranasal sinuses: No evidence of acute sinusitis.. Mastoid air cells: Developmentally poor pneumatization of the right mastoid process. Bones/joints: No obvious fracture or destructive process involving the cranium.. Soft tissues: Other than as stated above, no obvious acute abnormality. CT/CT head wo con* [id number] IMPRESSION: No acute intracranial hemorrhage or mass effect.
--- NOTE | 2023-07-10 11:25 | XR_ITS ---
WS: [id number] Portable AP upright chest, 07/10/2023 Clinical Data: dyspnea/cough Comparison: Portable chest, 06/29/2023 Findings: No nodules, masses or effusions are seen. The heart is normal. The pulmonary vascularity is not increased. No pneumonia or pneumothorax is seen. The aortic arch and descending thoracic aorta s how tortuosity. Impression: Atherosclerosis.
[2023-07-10 11:40] LABS: Basophils # 0.1 10^3/uL (0.0-0.1); Eosinophils # 0.1 10^3/uL (0.0-0.8); Eosinophils % 1.2 %; Hematocrit 42.3 % (36-47); Lymphocytes # 2.3 10^3/uL (0.8-4.8); Lymphocytes % 38.2 %; Mean Corpuscular HGB Conc 31.7 g/dL (30-55); Mean Corpuscular Volume 94.8 fl (85-98); Mean Platelet Volume 9.7 fL (7.4-10.4); Monocytes # 0.4 10^3/uL (0.2-0.9); Monocytes % 6.1 %; Neutrophils # 3.23 10^3/uL (1.8-7.7); Neutrophils % 53.2 %; Nucleated Red Blood Cells % 0 %; Platelet Count 262 10^3/cmm (157-399); Red Blood Count 4.46 10^6/uL (3.85-5.65); Red Cell Distribution Width 13.9 % (12.1-15.1); White Blood Count 6.07 10^3/uL (3.29-11.43)
[2023-07-10 11:40] LABS: Glucose Point of Care 83 mg/dL (70-110)
--- NOTE | 2023-07-10 11:40 | ED_ITS ---
HPI - Altered Mental Status 2 General: Chief Complaint: Altered Mental Status Stated Complaint: increased confusion Time Seen by Provider: 07/10/23 11:25 Source: patient Mode of arrival: ambulatory History of Present Illness: 69-year-old female presents emergency ro om moderately confused they reported they were unable to get her up this morning at all. She is awake oriented to person she has difficult time with speech due to some stutter but on further evaluation it is found this is essentially her baseline. She is unable to answer date time but is oriented to person. She is able to follow commands. She was seen previously for TIA and is taking aspirin and atorvastatin. MD complaint: confusion (Baseline dementia) Review of Systems 2 Const: Denies: fever(s) or chills Card: Denies: chest pain Resp: Denies: dyspnea GI: Denies: abdominal pain : Denies: dysuria, urinary frequency or urinary urgency Musc: Denies: neck pain or back pain Skin/Breast: Denies: rash PFSH ED 2 PFSH: Medical History Narcolepsy without cataplexy Peripheral arterial disease Onychodystrophy Cervical dystonia Social History Smoking and tobacco/nicotine status: never used tobacco/nicotine Physical Exam 2 Const: COMMON NORMALS: no acute distress GENERAL APPEARANCE: cooperative and comfortable ORIENTATION/CONSCIOUSNESS: Yes awake and Yes oriented to person; not oriented to place and not oriented to time HENMT: COMMON NORMALS: normocephalic, atraumatic and hearing grossly normal bilaterally HEAD & SCALP: normocephalic and atraumatic Resp: COMMON NORMALS: normal respiratory effort, No retractions, No use of accessory muscles and clear to auscultation bilaterally AUSCULTATION: clear to auscultation bilaterally Cardio: COMMON NORMALS: regular rate, regular rhythm and No murmurs present (Cardio) RATE: regular rate RHYTHM: regular rhythm GI: COMMON NORMALS: Soft to palpation and No hepatosplenomegaly present A USCULTATION: Yes normoactive bowel sounds PALPATION: Yes Soft to palpation, No Tenderness to palpation present (GI), No Guarding due to palpation present (GI) and Yes No hepatosplenomegaly present Extremity: COMMON NORMALS: normal to inspection, capillary refill normal, no clubbing, cyanosis or edema, no calf tenderness and no pedal edema Neuro: SENSORIUM/ORIENTATION: Yes oriented to person, No oriented to place and No oriented to time Skin: COMMON NORMALS: no rashes or lesions noted GENERAL SKIN EXAM: no rashes or lesions noted Course 2 Vital Signs: Vital signs: Vital Signs Temperature 97.6 F 07/10/23 11:20 Pulse Rate 64 07/10/23 13:49 Respiratory Rate 17 07/10/23 11:20 Blood Pressure 178/85 07/10/23 13:49 Pulse Oximetry 99 07/10/23 13:49 Oxygen Delivery Me thod Room Air 07/10/23 11:55 MDM - Altered Mental Status Medical Decision Making Patient has an NIH of 3 however 2 of these points are related to her dementia which is at her normal baseline the other is also related to her stuttering which is not new for her this is also confirmed to be at her baseline. She is otherwise has no new issues. Recommend she continue atorvastatin and aspirin. [facility] no medication changes at this time. CT head negative EKG no acute changes. Did not advance her antiplatelet therapy as this appears to be more her baseline dementia than a recurrent event. Lab Data 07/10/23 11:31 07/10/23 11:[address] 07/10/23 11:25 IMPRESSION: No acute intracranial hemorrhage or mass effect. Laboratory Results WBC 6.07 10^3/uL (3.29-11.43) 07/10/23 11:31 RBC 4.46 10^6/uL (3.85-5.65) 07/10/23 11:31 Hgb 13.40 g/dL (11.27-16.99) 07/10/23 11:31 Hct 42.3 % (36-47) 07/10/23 11:31 MCV 94.8 fl (85-98) 07/10/23 11:31 MCH 30.0 pg (27-33) 07/10/23 11:31 MCHC 31.7 g/dL (30-55) 07/10/23 11:31 RDW 13.9 % (12.1-15.1) 07/10/23 11:31 Plt Count 262 10^3/cmm (157-399) 07/10/23 11:31 MPV 9.7 fL (7.4-10.4) 07/10/23 11:31 Neut % (Auto) 53.2 % 07/10/23 11:31 Lymph % (Auto) 38.2 % 07/10/23 11:31 [place] % (Auto) 6.1 % 07/10/23 11:31 Eos % (Auto) 1.2 % 07/10/23 11:31 Baso % (Auto) 1.0 % 07/10/23 11:31 Neut # (Auto) 3.23 10^3/uL (1.8-7.7) 07/10/23 11:31 Lymph # (Auto) 2.3 10^3/uL (0.8-4.8) 07/10/23 11:31 [place] # (Auto) 0.4 10^3/uL (0.2-0.9) 07/10/23 11:31 Eos # (Auto) 0.1 10^3/uL (0.0-0.8) 07/10/23 11:31 Baso # (Auto) 0.1 10^3/uL (0.0-0.1) 07/10/23 11:31 Nucleated RBC % (auto) 0 % 07/10/23 11:31 Nucleated RBCs # 0.0 /100WBC 07/10/23 11:31 Specimen Type Arterial 07/10/23 11:37 Sample Site Brachial, right 07/10/23 11:37 ABG pH 7.42 (7.35-7.45) 07/10/23 11:37 ABG pCO2 39.9 mmHg (35-45) 07/10/23 11:37 ABG pO2 78.4 mmHg (80.0-100.0) L 07/10/23 11:37 ABG PO2/FiO2 Ratio 0 07/10/23 11:37 ABG HCO3 26.1 mmol/L (22-26) H 07/10/23 11:37 ABG O2 Saturation 97.1 07/10/23 11:37 ABG Base Excess 1.6 mmol/L (-2.0-2.0) 07/10/23 11:37 Cyrus Test N/a 07/10/23 11:37 A-a O2 Gradient 2.7 mmHg (5-10) L 07/10/23 11:37 Hematocrit 40.9 % (37-47) 07/10/23 11:37 Hgb O2 Saturation 95.6 % (95-100) 07/10/23 11:37 Carboxyhemoglobin 0.9 %THgb (0.4-20.1) 07/10/23 11:37 Methemoglobin 0.6 % (0.4-1.5) 07/10/23 11:37 Total Hemoglobin 13.4 g/dL (12-16) 07/10/23 11:37 Sodium 142.0 mmol/L (131-143) 07/10/23 11:37 Potassium 4.1 mmol/L (3.5-5.0) 07/10/23 11:37 Glucose 91.0 mg/dL (70-115) 07/10/23 11:37 Ionized Calcium 1.3 mmol/L (1.1-1.4) 07/10/23 11:37 O2 Delivery Device Room air 07/10/23 11:37 FiO2 21.0 % 07/10/23 11:37 Evs Attendant ID [id number] 07/10/23 11:37 Sodium 140 mmol/L (136-145) 07/10/23 11:31 Potassium 4.1 mmol/L (3.5-5.1) 07/10/23 11:31 Chloride 104 mmol/L (98-107) 07/10/23 11:31 Carbon Dioxide 26 mmol/L (22-29) 07/10/23 11:31 Anion Gap 14.1 (5-19) 07/10/23 11:31 BUN 12 mg/dL (8-23) 07/10/23 11:31 Creatinine 0.7 mg/dL (0.5-0.9) 07/10/23 11:31 GFR Calculation Not Reportable 07/10/23 11:31 Glucose 86 mg/dL (65-115) 07/10/23 11:31 POC Glucose 83 mg/dL (70-110) 07/10/23 11:36 Calculated Osmolality 289 mOsm/kg (285-295) 07/10/23 11:31 Lactic Acid 1.3 mmol/L (0.5-2.2) 07/10/23 11:31 Calcium 9.7 mg/dL (8.5-10.5) 03/22/24 11:31 Total Bilirubin 0.5 mg/dL (0.15-1.2) 07/10/23 11:31 AST 22 U/L (0-32) 07/10/23 11:31 ALT 38 U/L (0-33) H 07/10/23 11:31 Alkaline Phosphatase 78 U/L (35-105) 07/10/23 11:31 Total Protein 6.9 g/dL (6.6-8.7) 07/10/23 11:31 Albumin 4.1 g/dL (3.5-5.2) 07/10/23 11:31 Globulin 2.8 g/dL (1.3-4.6) 07/10/23 11:31 All radiology interpretation(s) finalized by discharge Discharge Plan Discharge Patient Disposition: Home Clinical Impression: Dementia, TIA (transient ischemic attack) Condition: Stable Prescriptions: No Action sulfasalazine 500 mg tablet,delayed release (DR/EC) 0.5 g PO QAM escitalopram oxalate [Lexapro] 10 mg tablet 10 mg PO QAM cholecalciferol (vitamin D3) 125 mcg (5,000 unit) Capsule 125 mcg PO QAM mecobalamin (vitamin B12) 500 mcg Tablet,Chewable 500 mcg PO QAM quetiapine 50 mg tablet 50 mg PO QAM [place] Matrix Plus 3,000 mcg -100 mg-50 mg Tablet Extended Release 1 tab PO QAM acetaminophen 325 mg Tablet 325 - 650 mg PO Q6H PRN (Reason: pain or fever) loperamide 2 mg capsule 4 mg PO BID PRN (Reason: Diarrhea) clonazepam 0.5 mg tablet 0.25 mg PO BID acetaminophen 500 mg Tablet 500 mg PO Q6H PRN (Reason: pain or fever) hydroxyzine HCl 25 mg tablet 25 mg PO TID PRN (Reason: ANXIETY OR INSOMNIA) estradiol 0.01 % (0.1 mg/gram) cream See Rx Instructions .ROUTE .COMPLEX Rx Instructions: INSERT 1/2 GRAM VAGINALLY TWICE A WEEK FOR VAGINAL ATROPHY. Refresh Digital 0.5-1-0.5 % Drops 1 - 2 drp OPHTHALMIC (EYE) Q2H PRN (Reason: Dry Eyes) aspirin 81 mg Tablet,Delayed Release (Dr/Ec) 81 mg PO DAILY 30 Days Qty: 30 0RF folic acid 1 mg Tablet 1 mg PO BID 30 Days Qty: 60 0RF ibuprofen 400 mg Tablet 400 mg PO Q6H PRN (Reason: Pain) rivastigmine 9.5 mg/24 hour patch 24 hour 1 patch topical DAILY atorvastatin 40 mg tablet 40 mg PO QPM Discharge Orders: Discharge ED (Routine); Ordered 07/10/23 Ordered By: Zak Keane Referrals: Nancie Kenny MD [Primary Care Provider] - Discharge Diet: Usual diet Discharge Activity: Resume usual activity Patient Instructions: Altered Mental Status (ED), Opioid Safety, Pain Management Activity Restrictions/Additional Instructions: Thank you for choosing [facility] for your healthcare needs today. Please realize this is an emergency room and that we are providing you with a medical screening exam and this may not be complete and all inclusive of all the testing and or work up that you may need to determine your ailment or severity of your illness. It is very important that you follow up as instructed or that you return to the Emergency Department should you have concerns or if your condition changes or worsens in any way. You were seen again today for a transient episode of difficulty with speaking. Continue current medications including aspirin and clopidogrel and atorvastatin. Follow-up with your primary care doctor. Head CT done today was normal. Coding Level of Care Code ED Information Systems Manager for Jose Rafael Mitchell NIH stroke score NIHSS Level Of Consciousness - 1a: 1 Level Of Consciousness Questions - 1b: One Correct Level Of Consciousness Commands - 1c: Both Correct Best Gaze - 2: Normal Visual Coy - 3: No Visual Loss Facial Palsy - 4: Normal Motor Arm Right - 5: No Drift Motor Arm Left - 5: No Drift Motor Leg Right - 6: No Drift Motor Leg Left - 6: No Drift Limb Ataxia - 7: Absent Sensory - 8: Normal Best Language - 9: No Aphasia Dysarthia - 10: Mild/Moderate Dysarthia (Normal baseline) Extinction And Inattention - 11: 0 Score Total Score: 3
[2023-07-10 11:48] LABS: ABG PCO2 39.9 mmHg (35-45); ABG PH Result 7.42 (7.35-7.45); Alveolar-Arterial Oxygen Gradi 2.7 mmHg (5-10); Arterial Blood Gas Hematocrit 40.9 % (37-47); Base Excess ABG 1.6 mmol/L (-2.0-2.0); Blood Gas Operator Identificat AMH; Blood Gas Sample Site Brachial, right; Blood Gas Sample Type Arterial; Carboxyhemoglobin 0.9 %THgb (0.4-20.1); HCO3 ABG 26.1 mmol/L (22-26); HGB O2 Sat 95.6 % (95-100); Ionized Calcium Level - ABG 1.3 mmol/L (1.1-1.4); Methemoglobin 0.6 % (0.4-1.5); Oxygen Device ROOM AIR; Oxygen Saturation ABG 97.1; PO2 ABG 78.4 mmHg (80.0-100.0); PO2 FiO2 Ratio Arterial Blood 0; Potassium Level - ABG 4.1 mmol/L (3.5-5.0); Total Hemoglobin 13.4 g/dL (12-16)
[2023-07-10 11:55] VITALS: BP 150/79; PULSE 61; O2SAT 97
[2023-07-10 11:58] LABS: Lactic Sepsis W/Reflex 1.3 mmol/L (0.5-2.2)
[2023-07-10 12:03] LABS: Alanine Aminotransferase 38 U/L (0-33); Albumin Level 4.1 g/dL (3.5-5.2); Alkaline Phosphatase 78 U/L (35-105); Anion Gap 14.1 (5-19); Aspartate Amino Transferase 22 U/L (0-32); Blood Urea Nitrogen 12 mg/dL (8-23); Calcium 9.7 mg/dL (8.5-10.5); Carbon Dioxide 26 mmol/L (22-29); Chloride 104 mmol/L (98-107); Creatinine Clr Calc Pharmacy 47.2569; Globulin 2.8 g/dL (1.3-4.6); Glucose 86 mg/dL (65-115); Osmolality Calculated 289 mOsm/kg (285-295); Potassium 4.1 mmol/L (3.5-5.1); Sodium 140 mmol/L (136-145); Total Bilirubin 0.5 mg/dL (0.15-1.2); Total Protein 6.9 g/dL (6.6-8.7)
[2023-07-10 13:49] VITALS: BP 178/85; PULSE 64; O2SAT 99
== END 2023-07-10 13:52 | disposition home or self-care (01) ==
PROVIDERS: Emergency Provider Family Medicine; PCP Internal Medicine
DX: G45.9 Transient cerebral ischemic attack, unspecified (principal); F03.90 Unspecified dementia, unspecified severity, without behavioral disturbance, psychotic disturbance, mood disturbance, and anxiety; Z79.82 Long term (current) use of aspirin
CPT/HCPCS: 36415; 36416; 36600; 70450; 71045; 80051; 80053; 82330; 82805; 82962; 83605; 85025; 99284

== ENCOUNTER → 2023-07-22 15:00 | Outpatient (BNVA) | payer MEDICARE, BC, SELFPAY | PROVIDERS: PCP Internal Medicine; Visit Provider Specialist | DX: G93.40 Encephalopathy, unspecified (principal); G45.9 Transient cerebral ischemic attack, unspecified; I48.0 Paroxysmal atrial fibrillation; G30.9 Alzheimer's disease, unspecified; F02.80 Dementia in other diseases classified elsewhere, unspecified severity, without behavioral disturbance, psychotic disturbance, mood disturbance, and anxiety; G24.3 Spasmodic torticollis | CPT/HCPCS: 99214; 99215 ==

== ENCOUNTER → 2023-08-20 14:13 | Outpatient (BNVA) | payer MEDICARE, BC, SELFPAY | PROVIDERS: PCP Internal Medicine; Visit Provider Specialist | DX: G45.9 Transient cerebral ischemic attack, unspecified (principal); G93.40 Encephalopathy, unspecified | CPT/HCPCS: 95816 ==

== ENCOUNTER 2023-09-17 07:01 | Emergency (ER) | payer MEDICARE, BC, SELFPAY ==
[2023-09-17 07:06] VITALS: BP 154/68; PULSE 66; RESP 18; TEMP 36.8; O2SAT 91; BMI 22.4
--- NOTE | 2023-09-17 07:12 | ED_ITS ---
HPI - Fall 2 General: Chief Complaint: Fall Stated Complaint: fall, nose pain Time Seen by Provider: 09/17/23 07:06 Source: patient Mode of arrival: ambulatory History of Present Illness: 77-year-old female presents emergency ro om after a fall from bed. She has been falling frequently had fallen and hit the right side of her face last week she has some chest discomfort on the right side provide another fall where she hit her chest. She is on apixaban because of a previous stroke she denies loss of consciousness with these episodes. She was not evaluated after the previous falls. No recent fever sweats chills or chest pain. Her falls have all been mechanical ground-level falls Associated symptoms-after fall: Denies abdominal pain, chest pain or neck pain Review of Systems 2 Const: Denies: fever(s) or chills Card: Denies: chest pain Resp: Denies: dyspnea GI: Denies: abdominal pain : Denies: dysuria, urinary frequency or urinary urgency Musc: Denies: neck pain or back pain Skin/Breast: Denies: rash PFSH ED 2 PFSH: Medical History Narcolepsy without cataplexy Peripheral arterial disease Onychodystrophy Cervical dystonia Social History Smoking and tobacco/nicotine status: never used tobacco/nicotine Physical Exam 2 Const: GENERAL APPEARANCE: cooperative and comfortable O RIENTATION/CONSCIOUSNESS: Yes awake HENMT: COMMON NORMALS: normocephalic and hearing grossly normal bilaterally HEAD & SCALP: normocephalic OTHER: Significant amount of facial bruising and ecchymosis there is bruising on the right side of the face above the right eye that looks to be at least 3 to 5 days old there is new bruising on the left side of the face including a large ecchymotic area on the inside of the left upper lip. Swelling on the face there appears to be some potential deformity of the nasal bones. Eye: OTHER: Pupils equal and reactive to light no hyphema no subconjunctival hematoma Resp: COMMON NORMALS: normal respiratory effort, No retractions, No use of accessory muscles and clear to auscultation bilaterally AUSCULTATION: clear to auscultation bilaterally Cardio: COMMON NORMALS: regular rate, regular rhythm and No murmurs present (Cardio) RATE: regular rate RHYTHM: regular rhythm GI: COMMON NORMALS: Soft to palpation and No hepatosplenomegaly present A USCULTATION: Yes normoactive bowel sounds PALPATION: Yes Soft to palpation, No Tenderness to palpation present (GI), No Guarding due to palpation present (GI) and Yes No hepatosplenomegaly present Extremity: COMMON NORMALS: normal to inspection, capillary refill normal, no clubbing, cyanosis or edema, no calf tenderness and no pedal edema Skin: COMMON NORMALS: no rashes or lesions noted GENERAL SKIN EXAM: no rashes or lesions noted Course 2 Vital Signs: Vital signs: Vital Signs Temperature 98.3 F 09/17/23 10:06 Pulse Rate 63 09/17/23 10:06 Respiratory Rate 16 09/17/23 10:06 Blood Pressure 151/55 09/17/23 10:06 Pulse Oximetry 98 09/17/23 10:06 Oxygen Delivery Me thod Room Air 09/17/23 08:41 MDM - Fall Medical Decision Making Labs and imaging reviewed. No acute fracture she does have a significant amount of facial bruising. CT reports reviewed. Will discharge the patient. Discussed with family recommend that they follow-up with their primary care doctor as to whether or not she should continue the anticoagulant. Resulted in a significant amount of bruising and discomfort she has had a lot of falls recently. Medical Records I reviewed the patient's medical records. Lab Data I reviewed the patient's lab results. 09/17/23 08:20 09/17/23 08:20 Radiology Impressions Cervical Spine CT 09/17/23 07:13 IMPRESSION: No evidence of acute fracture or dislocation Face CT 09/17/23 07:13 IMPRESSION: 1. No acute facial fractures. 2. Soft tissue edema and hematoma overlying the LEFT maxillary sinus and maxilla. 3. Chronic nasal septal deviation with chronic irregularity of the distal nasal bones unchanged since the prior studies. 4. Orbits are intact. 5. Mild mucosal thickening in the ethmoid air cells. No blood products in the paranasal sinuses. Head CT 09/17/23 07:13 IMPRESSION: 1. No evidence of intracranial hemorrhage or mass effect. 2. No acute intracranial findings. Chest X-Ray 09/17/23 07:48 IMPRESSION: 1. No acute cardiopulmonary finding. Laboratory Results WBC 8.79 10^3/uL (3.29-11.43) 09/17/23 08:20 RBC 4.48 10^6/uL (3.85-5.65) 09/17/23 08:20 Hgb 13.60 g/dL (11.27-16.99) 09/17/23 08:20 Hct 41.8 % (36-47) 09/17/23 08:20 MCV 93.3 fl (85-98) 09/17/23 08:20 MCH 30.4 pg (27-33) 09/17/23 08:20 MCHC 32.5 g/dL (30-55) 09/17/23 08:20 RDW 13.4 % (12.1-15.1) 09/17/23 08:20 Plt Count 307 10^3/cmm (157-399) 09/17/23 08:20 MPV 9.4 fL (7.4-10.4) 09/17/23 08:20 Neut % (Auto) 71.7 % 09/17/23 08:20 Lymph % (Auto) 19.6 % 09/17/23 08:20 [place] % (Auto) 6.7 % 09/17/23 08:20 Eos % (Auto) 1.0 % 09/17/23 08:20 Baso % (Auto) 0.7 % 09/17/23 08:20 Neut # (Auto) 6.30 10^3/uL (1.8-7.7) 09/17/23 08:20 Lymph # (Auto) 1.7 10^3/uL (0.8-4.8) 09/17/23 08:20 [place] # (Auto) 0.6 10^3/uL (0.2-0.9) 09/17/23 08:20 Eos # (Auto) 0.1 10^3/uL (0.0-0.8) 09/17/23 08:20 Baso # (Auto) 0.1 10^3/uL (0.0-0.1) 09/17/23 08:20 Nucleated RBC % (auto) 0 % 09/17/23 08:20 Nucleated RBCs # 0.0 /100WBC 09/17/23 08:20 Sodium 140 mmol/L (136-145) 09/17/23 08:20 Potassium 4.4 mmol/L (3.5-5.1) 09/17/23 08:20 Chloride 106 mmol/L (98-107) 09/17/23 08:20 Carbon Dioxide 25 mmol/L (22-29) 09/17/23 08:20 Anion Gap 13.4 (5-19) 09/17/23 08:20 BUN 12 mg/dL (8-23) 09/17/23 08:20 Creatinine 0.7 mg/dL (0.5-0.9) 09/17/23 08:20 GFR Calculation Not Reportable 09/17/23 08:20 Glucose 99 mg/dL (65-115) 09/17/23 08:20 Calculated Osmolality 290 mOsm/kg (285-295) 09/17/23 08:20 Calcium 9.6 mg/dL (8.5-10.5) 09/17/23 08:20 Total Bilirubin 0.5 mg/dL (0.15-1.2) 09/17/23 08:20 AST 24 U/L (0-32) 09/17/23 08:20 ALT 29 U/L (0-33) 09/17/23 08:20 Alkaline Phosphatase 109 U/L (35-105) H 09/17/23 08:20 Total Protein 7.3 g/dL (6.6-8.7) 09/17/23 08:20 Albumin 4.3 g/dL (3.5-5.2) 09/17/23 08:20 Globulin 3.0 g/dL (1.3-4.6) 09/17/23 08:20 Urine Color Yellow (Yellow) 09/17/23 07:41 Urine Appearance Clear (CLEAR) 09/17/23 07:41 Urine pH 5 (5-7) 09/17/23 07:41 Ur Specific [place] 1.020 (1.005-1.030) 09/17/23 07:41 Urine Protein Neg (Negative) 09/17/23 07:41 Urine Glucose (UA) Norm (Normal) 09/17/23 07:41 Urine Ketones Negative (Negative) 09/17/23 07:41 Urine Blood Neg (Negative) 09/17/23 07:41 Urine Nitrate Negative (Negative) 09/17/23 07:41 Urine Bilirubin Neg (Negative) 09/17/23 07:41 Urine Urobilinogen Norm mg/dL (Negative) 09/17/23 07:41 Ur Leukocyte Esterase Negative (Negative) 09/17/23 07:41 All radiology interpretation(s) finalized by discharge Discharge Plan Discharge Patient Disposition: Home Clinical Impression: Fall, Alzheimer disease, Traumatic ecchymosis of face, Atrial fibrillation, Chronic anticoagulation Condition: Stable Prescriptions: No Action sulfasalazine 500 mg tablet,delayed release (DR/EC) 0.5 g PO QAM Eliquis 5 mg tablet 5 mg PO BID Qty: 60 0RF escitalopram oxalate [Lexapro] 10 mg tablet 10 mg PO QAM buspirone 10 mg tablet 10 mg PO TID Qty: 90 5RF cholecalciferol (vitamin D3) 125 mcg (5,000 unit) Capsule 125 mcg PO QAM mecobalamin (vitamin B12) 500 mcg Tablet,Chewable 500 mcg PO QAM quetiapine 50 mg tablet 50 mg PO QAM [place] Matrix Plus 3,000 mcg -100 mg-50 mg Tablet Extended Release 1 tab PO QAM acetaminophen 325 mg Tablet 325 - 650 mg PO Q6H PRN (Reason: pain or fever) loperamide 2 mg capsule 4 mg PO BID PRN (Reason: Diarrhea) clonazepam 0.5 mg tablet 0.25 mg PO BID acetaminophen 500 mg Tablet 500 mg PO Q6H PRN (Reason: pain or fever) hydroxyzine HCl 25 mg tablet 25 mg PO TID PRN (Reason: ANXIETY OR INSOMNIA) estradiol 0.01 % (0.1 mg/gram) cream See Rx Instructions .ROUTE .COMPLEX Rx Instructions: INSERT 1/2 GRAM VAGINALLY TWICE A WEEK FOR VAGINAL ATROPHY. Refresh Digital 0.5-1-0.5 % Drops 1 - 2 drp OPHTHALMIC (EYE) Q2H PRN (Reason: Dry Eyes) ibuprofen 400 mg Tablet 400 mg PO Q6H PRN (Reason: Pain) rivastigmine 9.5 mg/24 hour patch 24 hour 1 patch topical DAILY Discharge Orders: Discharge ED (Routine); Ordered 09/17/23 Ordered By: Zak Keane Referrals: Nancie Kenny MD [Primary Care Provider] - Discharge Diet: Soft Mechanical Discharge Activity: Increase activity as tolerated Patient Instructions: Opioid Safety, Pain Management Activity Restrictions/Additional Instructions: You were seen in the emergency room today for a fall. CT of the head neck and facial bones did not show any acute fractures. There is significant swelling and bruising because of your oral anticoagulant. Would recommend that you contact your primary care doctor to discuss whether or not you need to continue this in light of the recurrent falls. Recommend you use your walker at all times to limit your chance of recurrent falls. You can use ice for the swelling on the face. Return to the emergency room if you have any further problems. Coding Level of Care Code ED Ecological Technical Officer for Jose Rafael Mitchell
--- NOTE | 2023-09-17 07:13 | CT_ITS ---
WS: [id number] CT CERVICAL TRAUMA TECHNIQUE: Noncontrast CT of the cervical spine with coronal and sagittal reformatted images. CLINICAL INFORMATION: trauma COMPARISON: CT 06/29/2023 DLP: 1830.[address] scans at [facility] use at least one of these dose optimization techniques: automated e xposure control; mA and/or kV adjustment per patient size (includes targeted exams where dose is matc hed to clinical indication); or iterative reconstruction. FINDINGS: Straightening of the normal cervical lordosis. Moderate spondylitic changes. Slight anterolisthesis C 3 on C4 and C4 on C5. Disc narrowing worse at C5-C6 and C6-C7. Anterior hypertrophic changes C5-C7. Normal craniocervical junction. Normal C1-C2 articulation. Dens is normal in appearance. Normal occip ital condyles. No high-grade spinal canal narrowing. Normal C1 ring. No evidence of acute fracture or dislocation. Normal prevertebral soft tissues. Fibrosis in the lung apices. Carotid bulb calcification. Mastoids air cells are well aerated. CT/CT cervical spin wo con* [id number] IMPRESSION: No evidence of acute fracture or dislocation
--- NOTE | 2023-09-17 07:13 | CT_ITS ---
WS: [id number] CT FACIAL BONES TECHNIQUE: Noncontrast facial bones with coronal and sagittal reformatted images. CLINICAL INFORMATION: trauma COMPARISON: None. DLP: 1830.[address] scans at [facility] use at least one of these dose optimization techniques: automated e xposure control; mA and/or kV adjustment per patient size (includes targeted exams where dose is matc hed to clinical indication); or iterative reconstruction. FINDINGS: Mild soft tissue edema subcutaneous hematoma overlying the LEFT maxilla. LEFT maxillary sinus appears intact. Chronic appearing nasal septal deviation with leftward directed spur. Anterior nasal bones a ppear intact and unchanged since the prior head CT's. Normal LEFT zygoma. Normal pterygoid plates. Pterygoid process of the maxilla appears intact. Slight mucosal thickening i n the ethmoid air cells. No blood products in the paranasal sinuses. Mastoid air cells are well aerat ed. Normal posterior nasopharynx. Dental artifact degrades some images. Cavernous carotid calcificati on. Lateral orbit and sphenoid wing appears intact. Inferior orbits appear intact. Lamina papyracea a ppears intact. No evidence of mandibular fracture or dislocation. CT/CT facial bones wo con* [id number] IMPRESSION: 1. No acute facial fractures. 2. Soft tissue edema and hematoma overlying the LEFT maxillary sinus and maxil la. 3. Chronic nasal septal deviation with chronic irregularity of the distal nasa l bones unchanged since the prior studies. 4. Orbits are intact. 5. Mild mucosal thickening in the ethmoid air cells. No blood products in the paranasal sinuses.
--- NOTE | 2023-09-17 07:13 | CT_ITS ---
WS: [id number] CT HEAD TECHNIQUE: Noncontrast CT of the head obtained from the skullbase to the vertex. CLINICAL INFORMATION: trauma COMPARISON: CT 07/10/2023 DLP: 1830.[address] scans at [facility] use at least one of these dose optimization techniques: automated e xposure control; mA and/or kV adjustment per patient size (includes targeted exams where dose is matc hed to clinical indication); or iterative reconstruction. FINDINGS: No evidence of intracranial hemorrhage or mass effect. Ventricular system and basal cisterns are xiong nt. No extra-axial fluid collections. No evidence of mass or mass effect. Moderate small vessel mantilla es. Moderate parenchymal volume loss. Vascular calcification. Chronic lacunar infarct LEFT thalamus Mild mucosal thickening in the ethmoid air cells. Mastoid air cells are well aerated. Sebaceous cyst RIGHT frontal scalp. CT/CT head wo con* [id number] IMPRESSION: 1. No evidence of intracranial hemorrhage or mass effect. 2. No acute intracranial findings.
[2023-09-17 07:15] VITALS: BP 154/68; PULSE 66; RESP 18; O2SAT 91
--- NOTE | 2023-09-17 07:48 | XR_ITS ---
WS: [id number] Exam: XR chest 1V portable [id number] Date/Time of Exam: 09/17/2023 7:51 AM Reason For Exam: trauma - r chest wall Comparison 07/10/2023. Lungs are clear and fully inflated. Normal cardiomediastinal silhouette. No pleural effusions. Bony s tructures are intact. XR/XR chest 1V portable [id number] IMPRESSION: 1. No acute cardiopulmonary finding.
[2023-09-17 08:03] LABS: Add Urine Microscopic? NO; Charge for UA Resulting for Rev
[2023-09-17 08:14] LABS: Bilirubin Urine Neg (Negative); Blood Urine Neg (Negative); Glucose Urine UA Norm (Normal); Ketones Urine Negative (Negative); Leukocyte Esterase Urine Negative (Negative); Nitrate Urine Negative (Negative); Protein Urine Neg (Negative); Urine Appearance Clear (CLEAR); Urine Color Yellow (Yellow); Urobilinogen Urine Norm (Negative); pH Urine 5 (5-7)
[2023-09-17 08:27] LABS: Basophils # 0.1 10^3/uL (0.0-0.1); Basophils % 0.7 %; Eosinophils # 0.1 10^3/uL (0.0-0.8); Hematocrit 41.8 % (36-47); Lymphocytes # 1.7 10^3/uL (0.8-4.8); Lymphocytes % 19.6 %; Mean Corpuscular HGB Conc 32.5 g/dL (30-55); Mean Corpuscular Hemoglobin 30.4 pg (27-33); Mean Corpuscular Volume 93.3 fl (85-98); Mean Platelet Volume 9.4 fL (7.4-10.4); Monocytes # 0.6 10^3/uL (0.2-0.9); Monocytes % 6.7 %; Neutrophils % 71.7 %; Nucleated Red Blood Cells % 0 %; Platelet Count 307 10^3/cmm (157-399); Red Blood Count 4.48 10^6/uL (3.85-5.65); Red Cell Distribution Width 13.4 % (12.1-15.1); White Blood Count 8.79 10^3/uL (3.29-11.43)
[2023-09-17 08:41] VITALS: BP 151/55; PULSE 63; RESP 16; O2SAT 98
[2023-09-17 08:50] LABS: Alanine Aminotransferase 29 U/L (0-33); Albumin Level 4.3 g/dL (3.5-5.2); Alkaline Phosphatase 109 U/L (35-105); Anion Gap 13.4 (5-19); Aspartate Amino Transferase 24 U/L (0-32); Blood Urea Nitrogen 12 mg/dL (8-23); Calcium 9.6 mg/dL (8.5-10.5); Carbon Dioxide 25 mmol/L (22-29); Chloride 106 mmol/L (98-107); Creatinine Clr Calc Pharmacy 47.9211; Glucose 99 mg/dL (65-115); Osmolality Calculated 290 mOsm/kg (285-295); Potassium 4.4 mmol/L (3.5-5.1); Sodium 140 mmol/L (136-145); Total Bilirubin 0.5 mg/dL (0.15-1.2); Total Protein 7.3 g/dL (6.6-8.7)
[2023-09-17 10:06] VITALS: BP 151/55; PULSE 63; RESP 16; TEMP 36.8; O2SAT 98
== END 2023-09-17 10:08 | disposition home or self-care (01) ==
PROVIDERS: Emergency Provider Family Medicine; PCP Internal Medicine
DX: S00.83XA Contusion of other part of head, initial encounter (principal); I48.91 Unspecified atrial fibrillation; G30.9 Alzheimer's disease, unspecified; F02.80 Dementia in other diseases classified elsewhere, unspecified severity, without behavioral disturbance, psychotic disturbance, mood disturbance, and anxiety; Z79.01 Long term (current) use of anticoagulants; W06.XXXA Fall from bed, initial encounter
CPT/HCPCS: 36415; 70450; 70486; 71045; 72125; 80053; 81003; 85025; 99284

== ENCOUNTER → 2023-09-30 14:27 | Outpatient (BNVA) | payer MEDICARE, BC, SELFPAY | PROVIDERS: PCP Internal Medicine; Visit Provider Specialist | DX: G93.40 Encephalopathy, unspecified (principal); G45.9 Transient cerebral ischemic attack, unspecified; G24.3 Spasmodic torticollis; I48.0 Paroxysmal atrial fibrillation; G30.9 Alzheimer's disease, unspecified; F02.80 Dementia in other diseases classified elsewhere, unspecified severity, without behavioral disturbance, psychotic disturbance, mood disturbance, and anxiety; R26.9 Unspecified abnormalities of gait and mobility | CPT/HCPCS: 64616; 96116; 99214; 99215; J0585 ==

== ENCOUNTER → 2023-10-20 13:22 | Outpatient (BNVA) | payer MEDICARE, BC, SELFPAY | PROVIDERS: PCP Internal Medicine; Visit Provider Podiatrist Foot & Ankle Surgery | DX: L60.8 Other nail disorders (principal); L60.3 Nail dystrophy; I73.9 Peripheral vascular disease, unspecified | CPT/HCPCS: 11721 ==

== ENCOUNTER 2023-12-13 13:09 | Emergency (ER) | payer MEDICARE, BC, SELFPAY ==
--- NOTE | 2023-12-13 13:13 | CTR_ITS ---
PROCEDURE INFORMATION: Exam: CT Cervical Spine Without Contrast Exam date and time: 12/13/2023 1:42 PM Age: 78 years old Clinical indication: Injury or trauma; Fall; Blunt trauma TECHNIQUE: Imaging protocol: Computed tomography of the cervical spine without contrast. Radiation optimization: All CT scans at this facility use at least one of these dose optimization techniques: automated exposure control; mA and/or kV adjustment per patient size (includes targeted exams where dose is matched to clinical indication); or iterative reconstruction. COMPARISON: CT cervical spin wo con* [id number] 09/17/2023 7:21 AM RADIATION DOSE METRICS: Total DLP (mGy-cm): 966.7 FINDINGS: Bones: There is mild reversal of the lower cervical lordosis.There are degenerative changes throughout the visualized spine including marginal osteophyte formations, endplate degenerative changes, and facet arthropathy. Multilevel disc space narrowing. There are broad-based disc osteophyte complexes at the C5-C6 and C6-C7 levels without significant canal or neural foramina stenosis. Lungs: There is scarring at the lung apices. Soft tissues: There are benign-appearing soft tissue calcifications. Chronic appearing thickening of the soft tissues about the dens with associated soft tissue calcifications. CT/CT cervical spin wo con* [id number] IMPRESSION: There are degenerative changes as described above. No evidence for acute fracture.
--- NOTE | 2023-12-13 13:14 | CTR_ITS ---
PROCEDURE INFORMATION: Exam: CT Head Without Contrast Exam date and time: 12/13/2023 1:42 PM Age: 78 years old Clinical indication: Fall; Blunt trauma (contusions or hematomas); TECHNIQUE: Imaging protocol: Computed tomography of the head without contrast. Radiation optimization: All CT scans at this facility use at least one of these dose optimization techniques: automated exposure control; mA and/or kV adjustment per patient size (includes targeted exams where dose is matched to clinical indication); or iterative reconstruction. COMPARISON: CT head wo con* [id number] 09/17/2023 7:21 AM RADIATION DOSE METRICS: Total DLP (mGy-cm): 1133 FINDINGS: Brain: There is diffuse cerebral atrophy present, consistent with this patient's age. Periventricular and subcortical white matter low densities are present which at this age likely represent microvascular ischemic change. There are chronic lacunar infarcts in the left arlene, left thalamus and basal ganglia.No evidence for large acute ischemic infarction. Please note acute ischemia can be occult by head CT. No evidence for acute intracranial hemorrhage. Calcified plaque is present within the intracranial vasculature. Cerebral ventricles: No ventriculomegaly. Paranasal sinuses: Visualized sinuses are unremarkable. No fluid levels. Mastoid air cells: Visualized mastoid air cells are well aerated. Bones: Unremarkable. No acute fracture. Soft tissues: There is edema and hematoma in the soft tissues posterior to the bilateral parietal calvaria. CT/CT head wo con* [id number] IMPRESSION: 1. There are senescent changes of the brain as described above. No evidence for large acute ischemic infarction or acute intracranial injury. 2. There is edema and hematoma in the soft tissues posterior to the bilateral parietal calvaria.
[2023-12-13 13:28] VITALS: BP 170/69; PULSE 64; RESP 17; TEMP 36.9; O2SAT 97; BMI 24.3
--- NOTE | 2023-12-13 13:39 | CTR_ITS ---
PROCEDURE INFORMATION: Exam: CT Lumbar Spine Without Contrast Exam date and time: 12/13/2023 1:46 PM Age: 78 years old Clinical indication: Injury or trauma; Fall; Blunt trauma (contusions or hematomas) TECHNIQUE: Imaging protocol: Computed tomography of the lumbar spine without contrast. Radiation optimization: All CT scans at this facility use at least one of these dose optimization techniques: automated exposure control; mA and/or kV adjustment per patient size (includes targeted exams where dose is matched to clinical indication); or iterative reconstruction. COMPARISON: CR XR lumbar spine 2-3V* [id number] 11/21/2021 11:22 AM RADIATION DOSE METRICS: Total DLP (mGy-cm): 356 FINDINGS: Bones/joints: Subacute to chronic appearing moderate compression fracture of the L2 superior endplate with 5 mm retropulsion. No significant associated soft tissue changes are seen.There are degenerative changes throughout the visualized spine including marginal osteophyte formations, endplate degenerative changes, and facet arthropathy. Multilevel disc space narrowing. Grade 1 degenerative anterolisthesis of L4 on L5. L1-L2: No significant disc bulge or herniation. No severe spinal canal stenosis. No significant neural foraminal narrowing. L2-L3: No significant disc bulge or herniation. No severe spinal canal stenosis. No significant neural foraminal narrowing. L3-L4: No significant disc bulge or herniation. No severe spinal canal stenosis. No significant neural foraminal narrowing. L4-L5: There is uncovering of the disc secondary to the anterolisthesis, severe facet arthropathy, ligamentum flavum hypertrophy, and posterior osteophytes with mild bilateral neural foramina narrowing. The canal is within normal limits in caliber. L5-S1: No significant disc bulge or herniation. No severe spinal canal stenosis. No significant neural foraminal narrowing. Soft tissues: Unremarkable. CT/CT lumbar spine wo con* [id number] IMPRESSION: 1. Subacute to chronic appearing moderate compression fracture of the L2 superior endplate without significant associated soft tissue changes. 2. There are multilevel, multifactorial degenerative changes in the lumbar spine as described in detail above.
--- NOTE | 2023-12-13 13:39 | CTR_ITS ---
PROCEDURE INFORMATION: Exam: CT Pelvis Without Contrast, Skeleton Exam date and time: 12/13/2023 1:46 PM Age: 78 years old Clinical indication: Please see the CT scan of the lumbar spine for description of the lumbar spine. Other procedure information: Fall; Blunt trauma (contusions or hematomas); Bilateral; Sacrum and coccyx TECHNIQUE: Imaging protocol: Computed tomography of the pelvis without contrast. Exam focused on the skeleton. Radiation optimization: All CT scans at this facility use at least one of these dose optimization techniques: automated exposure control; mA and/or kV adjustment per patient size (includes targeted exams where dose is matched to clinical indication); or iterative reconstruction. COMPARISON: CR XR pelvis 1-2V* [id number] 07/29/2021 2:16 PM RADIATION DOSE METRICS: Total DLP (mGy-cm): 309.5 FINDINGS: Bones/joints: There are acute to subacute appearing fractures through the S4 and S5 sacral segments with mild edema and/or hematoma in the adjacent soft tissues. No significant displacement. There are small marginal osteophytes and subchondral cystic changes across the hip joints. Soft tissues: See above. CT/CT pelvis [facility] [id number] IMPRESSION: Acute to subacute appearing fracture through the S4 and S5 sacral segments with mild adjacent soft tissue edema and/or hematoma.
--- NOTE | 2023-12-13 13:57 | ED_ITS ---
HPI - Fall General: Chief Complaint: Fall Stated Complaint: Fall/ Hit head Time Seen by Provider: 12/13/23 13:39 History of Present Illness: 78-year-old female presents emergency ro om after a fall. Patient was in assisted living she fell backwards landing on her buttocks is complaining of pain proximal.. She did hit her head as well. Her biggest complaint is her head and her tailbone no vomiting no reported loss of consciousness. No other injuries. Patient was ambulatory she does have a history of cognitive disorder Associated symptoms-after fall: Reports headache(s); Denies abdominal pain, chest pain or neck pain Related Data Home Medications Medication Instructions Recorded Confirmed sulfasalazine 500 mg 0.5 g PO QAM 01/10/21 10/20/23 tablet,delayed release escitalopram oxalate 10 mg tablet 10 mg PO QAM 05/15/22 10/20/23 (Lexapro) cholecalciferol (vitamin D3) 125 125 mcg PO QAM 01/09/23 10/20/23 mcg (5,000 unit) capsule mecobalamin (vitamin B12) 500 mcg 500 mcg PO QAM 01/09/23 10/20/23 chewable tablet acetaminophen 325 mg tablet 325 - 650 mg PO Q6H PRN pain or 06/29/23 10/20/23 fever acetaminophen 500 mg tablet 500 mg PO Q6H PRN pain or fever 06/29/23 10/20/23 biotin 3,000 mcg-silicon dioxide 1 tab PO QAM 06/29/23 10/20/23 100 fb-M-cfekkymo 50 mg tablet ER ([place] Matrix Plus) rfueyqxzbpjkqmqadfhebe-hlzjiesc-lefczbmp 1 - 2 drp ophthalmic (eye) Q2H PRN 06/29/23 10/20/23 80 0.5 %-1 %-0.5 % eye drops Dry Eyes (Refresh Digital) estradiol 0.01% (0.1 mg/gram) See Rx Instructions .Route .COMPLEX 06/29/23 10/20/23 vaginal cream loperamide 2 mg capsule 4 mg PO BID PRN Diarrhea 06/29/23 10/20/23 quetiapine 50 mg tablet 50 mg PO QAM 06/29/23 10/20/23 ibuprofen 400 mg tablet 400 mg PO Q6H PRN Pain 07/10/23 10/20/23 rivastigmine 9.5 mg/24 hour 1 patch topical DAILY 07/10/23 10/20/23 transdermal patch Previous Rx's Medication Instructions Recorded apixaban 5 mg tablet (Eliquis) 5 mg PO BID #60 tabs 07/22/23 buspirone 10 mg tablet 10 mg PO TID #90 tabs 08/25/23 hydrocodone 5 mg-acetaminophen 325 1 tab PO Q6H PRN pain #12 tabs 12/13/23 mg tablet Allergies Allergy/AdvReac Type Severity Reaction Status Date / Time pseudoephedrine Allergy Intermediate ADR/ALGY-Hy Verified 12/13/23 13:32 potension Review of Systems Const: Denies: fever(s) or chills Card: Denies: chest pain Resp: Denies: dyspnea GI: Denies: abdominal pain : Denies: dysuria, urinary frequency or urinary urgency Musc: Reports: back pain; Denies: neck pain Skin/Breast: Denies: rash Neuro: Reports: headache(s) [facility] ED PFSH: Medical History Narcolepsy without cataplexy Peripheral arterial disease Onychodystrophy Cervical dystonia Social History Smoking and tobacco/nicotine status: never used tobacco/nicotine Physical Exam Const: COMMON NORMALS: no acute distress GENERAL APPEARANCE: cooperative and comfortable ORIENTATION/CONSCIOUSNESS: Yes awake HENMT: COMMON NORMALS: normocephalic, atraumatic and hearing grossly normal bilaterally HEAD & SCALP: normocephalic and atraumatic Resp: COMMON NORMALS: normal respiratory effort, No retractions, No use of accessory muscles and clear to auscultation bilaterally AUSCULTATION: clear to auscultation bilaterally Cardio: COMMON NORMALS: regular rate, regular rhythm and No murmurs present (Cardio) RATE: regular rate RHYTHM: regular rhythm GI: COMMON NORMALS: Soft to palpation and No hepatosplenomegaly present AUSCULTATION: Yes normoactive bowel sounds PALPATION: Yes Soft to palpation, No Tenderness to palpation present (GI), No Guarding due to palpation present (GI) and Yes No hepatosplenomegaly present Extremity: COMMON NORMALS: normal to inspection, capillary refill normal, no clubbing, cyanosis or edema, no calf tenderness and no pedal edema Skin: COMMON NORMALS: no rashes or lesions noted GENERAL SKIN EXAM: no rashes or lesions noted Course Vital Signs: Vital signs: Vital Signs Temperature 98.5 F 12/13/23 16:34 Pulse Rate 59 L 12/13/23 16:34 Respiratory Rate 16 12/13/23 16:34 Blood Pressure 172/96 12/13/23 16:34 Pulse Oximetry 98 12/13/23 16:34 Oxygen Delivery Me thod Room Air 12/13/23 13:28 MDM - Fall Medical Decision Making CT shows sacral fracture as well as L2 compression fracture head CT and neck were unremarkable. Will discharge patient home with hydrocodone. and refer to orthopedic spine surgery for consideration of kyphoplasty. Her son who is a physician was present with her in the emergency room agrees with plan. Patient is unsure if she wants to use hydrocodone because of sedation. Encouraged her to the last send the prescription and so she has it available if needed she only needs to take it as she has uncontrollable pain it may be helpful at night to help her sleep. Should follow-up with her primary care doctor as well as orthopedics. She may require some PT to maintain strength and transfer ability as the fracture heals Medical Records I reviewed the patient's medical records. Lab Data I reviewed the patient's lab results. Radiology Impressions Cervical Spine CT 12/13/23 13:13 IMPRESSION: There are degenerative changes as described above. No evidence for acute fracture. Head CT 12/13/23 13:14 IMPRESSION: 1. There are senescent changes of the brain as described above. No evidence for large acute ischemic infarction or acute intracranial injury. 2. There is edema and hematoma in the soft tissues posterior to the bilateral parietal calvaria. Lumbar Spine CT 12/13/23 13:39 IMPRESSION: 1. Subacute to chronic appearing moderate compression fracture of the L2 superior endplate without significant associated soft tissue changes. 2. There are multilevel, multifactorial degenerative changes in the lumbar spine as described in detail above. Pelvis CT 12/13/23 13:39 IMPRESSION: Acute to subacute appearing fracture through the S4 and S5 sacral segments with mild adjacent soft tissue edema and/or hematoma. All radiology interpretation(s) finalized by discharge Discharge Plan Discharge Patient Disposition: Home Clinical Impression: Compression fx, lumbar spine, Alzheimer disease, Closed sacral fracture Condition: Stable Prescriptions: New hydrocodone-acetaminophen 5-325 mg tablet 1 tab PO Q6H PRN (Reason: pain) Qty: 12 0RF No Action sulfasalazine 500 mg tablet,delayed release (DR/EC) 0.5 g PO QAM Eliquis 5 mg tablet 5 mg PO BID Qty: 60 0RF escitalopram oxalate [Lexapro] 10 mg tablet 10 mg PO QAM buspirone 10 mg tablet 10 mg PO TID Qty: 90 5RF cholecalciferol (vitamin D3) 125 mcg (5,000 unit) Capsule 125 mcg PO QAM mecobalamin (vitamin B12) 500 mcg Tablet,Chewable 500 mcg PO QAM quetiapine 50 mg tablet 50 mg PO QAM [place] Matrix Plus 3,000 mcg -100 mg-50 mg Tablet Extended Release 1 tab PO QAM acetaminophen 325 mg Tablet 325 - 650 mg PO Q6H PRN (Reason: pain or fever) loperamide 2 mg capsule 4 mg PO BID PRN (Reason: Diarrhea) acetaminophen 500 mg Tablet 500 mg PO Q6H PRN (Reason: pain or fever) estradiol 0.01 % (0.1 mg/gram) cream See Rx Instructions .ROUTE .COMPLEX Rx Instructions: INSERT 1/2 GRAM VAGINALLY TWICE A WEEK FOR VAGINAL ATROPHY. Refresh Digital 0.5-1-0.5 % Drops 1 - 2 drp OPHTHALMIC (EYE) Q2H PRN (Reason: Dry Eyes) ibuprofen 400 mg Tablet 400 mg PO Q6H PRN (Reason: Pain) rivastigmine 9.5 mg/24 hour patch 24 hour 1 patch topical DAILY Discharge Orders: Discharge ED (Routine); Ordered 12/13/23 Ordered By: Zak Keane Referrals: Nancie Kenny MD [Primary Care Provider] - Discharge Diet: Usual diet Discharge Activity: Increase activity as tolerated Patient Instructions: Opioid Safety, Pain Management Activity Restrictions/Additional Instructions: Thank you for choosing [facility] for your healthcare needs today. It is very important that you follow up as instructed or that you return to the Emergency Department should you have concerns or if your condition changes or worsens in any way. You were seen today after a fall. You have sacral fracture and a lumbar compression fracture. Case management will make a referal to orthopaedic office. You can use hte pain medicaitons prescribed as needed. Coding Level of Care Code ED Still Operator Brandy for Jose Rafael Mitchell
[2023-12-13 16:34] VITALS: BP 172/96; PULSE 59; RESP 16; TEMP 36.9; O2SAT 98
--- NOTE | 2023-12-14 08:10 | DCPLANNER ---
messaged ortho for er f/u
== END 2023-12-13 16:29 | disposition home or self-care (01) ==
PROVIDERS: Emergency Provider Family Medicine; PCP Internal Medicine
DX: S32.10XA Unspecified fracture of sacrum, initial encounter for closed fracture (principal); S32.020A Wedge compression fracture of second lumbar vertebra, initial encounter for closed fracture; G30.9 Alzheimer's disease, unspecified; F02.80 Dementia in other diseases classified elsewhere, unspecified severity, without behavioral disturbance, psychotic disturbance, mood disturbance, and anxiety; Z79.01 Long term (current) use of anticoagulants; W18.39XA Other fall on same level, initial encounter; Y92.099 Unspecified place in other non-institutional residence as the place of occurrence of the external cause
CPT/HCPCS: 70450; 72125; 72131; 72192; 99284

== ENCOUNTER → 2023-12-17 15:19 | Outpatient (BNVA) | payer MEDICARE, BC, SELFPAY | PROVIDERS: PCP Internal Medicine; Visit Provider Orthopaedic Surgery | DX: S32.000A Wedge compression fracture of unspecified lumbar vertebra, initial encounter for closed fracture (principal); S32.10XA Unspecified fracture of sacrum, initial encounter for closed fracture; W19.XXXA Unspecified fall, initial encounter | CPT/HCPCS: 72100; 72190; 99203 ==

== ENCOUNTER 2024-01-09 11:51 | Outpatient (CLI) | payer MEDICARE, BC, SELFPAY ==
[2024-01-09 12:19] LABS: Bilirubin Urine Negative (Negative); Blood Urine Negative (Negative); Glucose Urine UA Negative (Normal); Ketones Urine Negative (Negative); Leukocyte Esterase Urine 1+ (Negative); Nitrate Urine Negative (Negative); Protein Urine Negative (Negative); Specific Gravity, Urine 1.018 (1.005-1.030); Urine Appearance Clear (CLEAR); Urine Color Yellow (Yellow)
[2024-01-09 12:20] LABS: Basophils # 0.1 10^3/uL (0.0-0.1); Basophils % 0.7 %; Eosinophils # 0.1 10^3/uL (0.0-0.8); Eosinophils % 1.1 %; Hematocrit 40.7 % (36-47); Lymphocytes % 28.3 %; Mean Corpuscular HGB Conc 32.9 g/dL (30-55); Mean Corpuscular Hemoglobin 29.4 pg (27-33); Mean Corpuscular Volume 89.3 fl (85-98); Mean Platelet Volume 9.7 fL (7.4-10.4); Monocytes # 0.4 10^3/uL (0.2-0.9); Monocytes % 5.7 %; Neutrophils # 4.47 10^3/uL (1.8-7.7); Neutrophils % 63.6 %; Nucleated Red Blood Cells % 0 %; Platelet Count 370 10^3/cmm (157-399); Red Blood Count 4.56 10^6/uL (3.85-5.65); White Blood Count 7.03 10^3/uL (3.29-11.43)
[2024-01-09 12:25] LABS: Add Urine Microscopic? YES; Bacteria Urine None Seen /hpf; Hyaline Casts Urine 0.81 /lpf; RBC Urine 0-2 /hpf (0-2); Squamous Epithelial Cell Urine 0-5 /hpf (0-5)
[2024-01-09 12:54] LABS: Alanine Aminotransferase 22 U/L (0-33); Albumin Level 4.1 g/dL (3.5-5.2); Alkaline Phosphatase 83 U/L (35-105); Anion Gap 16.3 (5-19); Aspartate Amino Transferase 18 U/L (0-32); Blood Urea Nitrogen 15 mg/dL (8-23); Calcium 9.7 mg/dL (8.5-10.5); Carbon Dioxide 25 mmol/L (22-29); Chloride 101 mmol/L (98-107); Globulin 2.3 g/dL (1.3-4.6); Glucose 129 mg/dL (65-115); Osmolality Calculated 289 mOsm/kg (285-295); Potassium 4.3 mmol/L (3.5-5.1); Sodium 138 mmol/L (136-145); Thyroid Stimulating Hormone 2.97 uIU/mL (0.27-4.20); Total Bilirubin 0.4 mg/dL (0.15-1.2); Total Protein 6.4 g/dL (6.6-8.7)
== END 2024-01-09 11:52 | disposition home or self-care (01) ==
LOC: LAB 11:53
PROVIDERS: PCP Internal Medicine; Visit Provider Internal Medicine
DX: N39.0 Urinary tract infection, site not specified (principal); R41.82 Altered mental status, unspecified
CPT/HCPCS: 80053; 81001; 84443; 85025; 87086

== ENCOUNTER → 2024-01-27 13:54 | Outpatient (BNVA) | payer MEDICARE, BC, SELFPAY | PROVIDERS: PCP Internal Medicine; Visit Provider Podiatrist Foot & Ankle Surgery | DX: L60.3 Nail dystrophy (principal); I73.9 Peripheral vascular disease, unspecified | CPT/HCPCS: 11721 ==

== ENCOUNTER 2024-03-07 02:30 | Emergency (ER) | payer MEDICARE, BC, SELFPAY ==
[2024-03-07 02:30] VITALS: BP 175/93; PULSE 66; RESP 17; TEMP 36.6; O2SAT 98; BMI 21.7
--- NOTE | 2024-03-07 03:05 | CTR_ITS ---
PROCEDURE INFORMATION: Exam: CT Head Without Contrast Exam date and time: 03/07/2024 3:20 AM Age: 78 years old Clinical indication: Altered mental status/memory loss; Confusion or disorientation; Patient HX: EMS arrival from longterm for [facility]. Patient acting confused with non sensical statements. Hypertensive on monitor. History of dementia. TECHNIQUE: Imaging protocol: Computed tomography of the head without contrast. Radiation optimization: All CT scans at this facility use at least one of these dose optimization techniques: automated exposure control; mA and/or kV adjustment per patient size (includes targeted exams where dose is matched to clinical indication); or iterative reconstruction. COMPARISON: CT head wo con* [id number] 12/13/2023 1:42 PM RADIATION DOSE METRICS: Total DLP (mGy-cm): 1008.98 FINDINGS: Brain: There is patchy hypoattenuation in the deep and subcortical white matter, likely representing chronic small vessel ischemic change. Age-related parenchymal atrophy with enlargement of the CSF spaces. Hypodensities in the bilateral basal ganglia likely representing remote lacunar infarcts. No hemorrhage. Cerebral ventricles: No ventriculomegaly. Paranasal sinuses: Visualized sinuses are unremarkable. No fluid levels. Mastoid air cells: Visualized mastoid air cells are well aerated. Orbital cavities: Bilateral cataract surgeries. Bones: Unremarkable. No acute fracture. Soft tissues: Unremarkable. CT/CT head wo con* [id number] IMPRESSION: No acute intracranial abnormality.
--- NOTE | 2024-03-07 03:05 | ECG_ITS ---
[employer] Machine Test Date: 2024-03-07 Pat Name: Natalia Jackson Department: Room: Gender: Female X Ray Developer: : 1945 Requested By: Vitaly Lieberman Order Number: [id number] Cornelio MD: Lashell Moe M.D. Measurements Intervals [place] Rate: 63 P: 15 WY: 157 QRS: -16 QRSD: 81 T: 7 QT: 410 QTc: 422 Interpretive Statements SINUS RHYTHM WITH OCCASIONAL ECTOPIC PREMATURE COMPLEXES NONSPECIFIC T-WAVE ABNORMALITY Compared to ECG 06/29/2023 11:20:27 T-wave abnormality now present Sinus bradycardia no longer present Electronically Signed On 03-07-2024 19:28:40 OLIVING MACHINE OPERATOR by Lashell Moe M.D. [email or web address]
--- NOTE | 2024-03-07 03:05 | XRR_ITS ---
PROCEDURE INFORMATION: Exam: XR Chest Exam date and time: 03/07/2024 3:08 AM Age: 78 years old Clinical indication: Patient HX: EMS arrival from shelter for [facility]MS. Patient acting confused with non sensical statements. Hypertensive on monitor. History of dementia. TECHNIQUE: Imaging protocol: Radiologic exam of the chest. Views: 1 view. COMPARISON: CR XR chest 1V portable [id number] 09/17/2023 7:55 AM FINDINGS: Lungs: Unremarkable. No consolidation. Pleural spaces: Unremarkable. No pleural effusion. No pneumothorax. Heart/Mediastinum: Mild cardiomegaly. Bones/joints: Unremarkable. XR/XR chest 1V portable [id number] IMPRESSION: No acute findings.
--- NOTE | 2024-03-07 03:09 | W.ED.AMS ---
HPI - Altered Mental Status General: Chief Complaint: Altered Mental Status Stated Complaint: AMS Time Seen by Provider: 03/07/24 02:50 History of Present Illness: 78-year-old female with a history of Alzheimer's dementia. She presents with a sudden change in mental status. She evidently became agitated, and was trying to leave the facility she lives then. Although not terribly physical, she became somewhat combative. She presents pleasantly confused, smiling, and answering questions. She has been calm here. Family is with her, and states that of late, she has been almost too pleasant, and too energetic, and that she is most commonly somewhat withdrawn, stutters, and is paranoid. She has not been this way this week. No recent changes in medication or dosages. No fevers that are known. No recent illnesses that are known. Related Data Home Medications Medication Instructions Recorded Confirmed sulfasalazine 500 mg 0.5 g PO QAM 01/10/21 01/27/24 tablet,delayed release escitalopram oxalate 10 mg tablet 10 mg PO QAM 05/15/22 01/27/24 (Lexapro) cholecalciferol (vitamin D3) 125 125 mcg PO QAM 01/09/23 01/27/24 mcg (5,000 unit) capsule mecobalamin (vitamin B12) 500 mcg 500 mcg PO QAM 01/09/23 01/27/24 chewable tablet acetaminophen 325 mg tablet 325 - 650 mg PO Q6H PRN pain or 06/29/23 01/27/24 fever acetaminophen 500 mg tablet 500 mg PO Q6H PRN pain or fever 06/29/23 01/27/24 biotin 3,000 mcg-silicon dioxide 1 tab PO QAM 06/29/23 01/27/24 100 nl-Y-uqwpupiv 50 mg tablet ER (Reese Matrix Plus) snhrwlhglurufbpjjdugst-kbtldlsn-tfjlktwy 1 - 2 drp ophthalmic (eye) Q2H PRN 06/29/23 01/27/24 80 0.5 %-1 %-0.5 % eye drops Dry Eyes (Refresh Digital) estradiol 0.01% (0.1 mg/gram) See Rx Instructions .Route .COMPLEX 06/29/23 01/27/24 vaginal cream loperamide 2 mg capsule 4 mg PO BID PRN Diarrhea 06/29/23 01/27/24 ibuprofen 400 mg tablet 400 mg PO Q6H PRN Pain 07/10/23 01/27/24 rivastigmine 9.5 mg/24 hour 1 patch topical DAILY 07/10/23 01/27/24 transdermal patch brexpiprazole 1 mg tablet (Rexulti) 1 mg PO DAILY 01/27/24 01/27/24 Previous Rx's Medication Instructions Recorded apixaban 5 mg tablet (Eliquis) 5 mg PO BID #60 tabs 07/22/23 buspirone 10 mg tablet 10 mg PO TID #90 tabs 08/25/23 hydrocodone 5 mg-acetaminophen 325 1 tab PO Q6H PRN pain #12 tabs 12/13/23 mg tablet Allergies Allergy/AdvReac Type Severity Reaction Status Date / Time pseudoephedrine Allergy Intermediate ADR/ALGY-Hy Verified 01/27/24 13:55 potension [facility] PFS: Medical History Narcolepsy without cataplexy Peripheral arterial disease Onychodystrophy Cervical dystonia Social History Smoking and tobacco/nicotine status: never used tobacco/nicotine Physical Exam Const: COMMON NORMALS: no acute distress and alert GENERAL APPEARANCE: cooperative and frail appearing (Mildly); not ill appearing NUTRITIONAL APPEARANCE: thin ORIENTATION/CONSCIOUSNESS: Yes awake and Yes oriented to person; not oriented to place and not oriented to time HENMT: COMMON NORMALS: normocephalic, atraumatic and Normal external nose present HEAD & SCALP: normocephalic and atraumatic FACE & SINUS: normal facial exam and face symmetric NOSE: Normal external nose present Eye: COMMON NORMALS: Equal, round and reactive pupils present and EOMs intact bilaterally PUPIL: Yes Equal, round and reactive pupils present Neck/C-Spine: COMMON NORMALS: full ROM GENERAL: Yes trachea midline Resp: COMMON NORMALS: normal respiratory effort, No use of accessory muscles and clear to auscultation bilaterally AUSCULTATION: clear to auscultation bilaterally Cardio: COMMON NORMALS: regular rate and regular rhythm RATE: regular rate RHYTHM: regular rhythm Extremity: COMMON NORMALS: no pedal edema Neuro: SENSORIUM/ORIENTATION: Yes alert, Yes oriented to person, No oriented to place and No oriented to time CRANIAL NERVES: Yes CN normal except as noted COORDINATION/BALANCE: xqfdko-dd-cvqj test normal and jova-nr-tjmg test normal SPEECH: no expressive aphasia SENSORY EXAM: Yes extremities (Intact) MOTOR EXAM: No Pronator motor function present COORDINATION: qzdkpu-al-ioxz test normal and cwzo-ok-oyix test normal Course Vital Signs: Vital signs: Vital Signs Temperature 97.8 F 03/07/24 02:30 Pulse Rate 89 03/07/24 06:59 Respiratory Rate 18 03/07/24 05:41 Blood Pressure 178/110 03/07/24 06:59 Pulse Oximetry 94 03/07/24 06:59 Oxygen Delivery Me thod Room Air 03/07/24 05:41 MDM - Altered Mental Status Medical Decision Making Patient has been hypertensive here, but currently improved. Blood pressure is currently 168/77. Other vitals are stable. CBC is normal. BMP is normal. Chest x-ray is nonacute. Urinalysis is negative. No intoxication. Head CT is nonacute as well. Lactic acid is 1.7. Spoke with family. They are willing to let her go back to [place] if they will take her. Have a call out to them. With increasing dementia signs and symptoms, this patient may require an increased level of care somewhat promptly. Lab Data 03/07/24 03:50 03/07/24 03:50 Radiology Impressions Chest X-Ray 03/07/24 03:05 IMPRESSION: No acute findings. Head CT 03/07/24 03:05 IMPRESSION: No acute intracranial abnormality. Laboratory Results WBC 8.82 10^3/uL (3.29-11.43) 03/07/24 03:50 RBC 4.71 10^6/uL (3.85-5.65) 03/07/24 03:50 Hgb 13.50 g/dL (11.27-16.99) 03/07/24 03:50 Hct 41.7 % (36-47) 03/07/24 03:50 MCV 88.5 fl (85-98) 03/07/24 03:50 MCH 28.7 pg (27-33) 03/07/24 03:50 MCHC 32.4 g/dL (30-55) 03/07/24 03:50 RDW 13.7 % (12.1-15.1) 03/07/24 03:50 Plt Count 296 10^3/cmm (157-399) 03/07/24 03:50 MPV 9.8 fL (7.4-10.4) 03/07/24 03:50 Neut % (Auto) 62.4 % 03/07/24 03:50 Lymph % (Auto) 28.3 % 03/07/24 03:50 [place] % (Auto) 7.6 % 03/07/24 03:50 Eos % (Auto) 0.7 % 03/07/24 03:50 Baso % (Auto) 0.8 % 03/07/24 03:50 Neut # (Auto) 5.50 10^3/uL (1.8-7.7) 03/07/24 03:50 Lymph # (Auto) 2.5 10^3/uL (0.8-4.8) 03/07/24 03:50 [place] # (Auto) 0.7 10^3/uL (0.2-0.9) 03/07/24 03:50 Eos # (Auto) 0.1 10^3/uL (0.0-0.8) 03/07/24 03:50 Baso # (Auto) 0.1 10^3/uL (0.0-0.1) 03/07/24 03:50 Nucleated RBC % (auto) 0 % 03/07/24 03:50 Nucleated RBCs # 0.0 /100WBC 03/07/24 03:50 Sodium 139 mmol/L (136-145) 03/07/24 03:50 Potassium 4.1 mmol/L (3.5-5.1) 03/07/24 03:50 Chloride 101 mmol/L (98-107) 03/07/24 03:50 Carbon Dioxide 26 mmol/L (22-29) 03/07/24 03:50 Anion Gap 16.1 (5-19) 03/07/24 03:50 BUN 17 mg/dL (8-23) 03/07/24 03:50 Creatinine 0.7 mg/dL (0.5-0.9) 03/07/24 03:50 GFR Calculation Not Reportable 03/07/24 03:50 Glucose 109 mg/dL (65-115) 03/07/24 03:50 Calculated Osmolality 290 mOsm/kg (285-295) 03/07/24 03:50 Lactic Acid 1.7 mmol/L (0.5-2.2) 03/07/24 03:50 Calcium 10.5 mg/dL (8.5-10.5) 03/07/24 03:50 Magnesium 2.2 mg/dL (1.7-2.3) 03/07/24 03:50 Total Bilirubin 0.6 mg/dL (0.15-1.2) 03/07/24 03:50 AST 27 U/L (0-32) 03/07/24 03:50 ALT 31 U/L (0-33) 03/07/24 03:50 Alkaline Phosphatase 85 U/L (35-105) 03/07/24 03:50 Creatine Kinase 374 U/L (26-192) H* 03/07/24 03:50 C-Reactive Protein 3.0 mg/L (0.0-4.9) 03/07/24 03:50 Total Protein 7.4 g/dL (6.6-8.7) 03/07/24 03:50 Albumin 4.6 g/dL (3.5-5.2) 03/07/24 03:50 Globulin 2.8 g/dL (1.3-4.6) 03/07/24 03:50 Urine Color Yellow (Yellow) 03/07/24 05:12 Urine Appearance Clear (CLEAR) 03/07/24 05:12 Urine pH 7.0 (5-7) 03/07/24 05:12 Ur Specific [place] 1.007 (1.005-1.030) 03/07/24 05:12 Urine Protein Negative (Negative) 03/07/24 05:12 Urine Glucose (UA) Negative (Normal) 03/07/24 05:12 Urine Ketones Negative (Negative) 03/07/24 05:12 Urine Blood Negative (Negative) 03/07/24 05:12 Urine Nitrate Negative (Negative) 03/07/24 05:12 Urine Bilirubin Negative (Negative) 03/07/24 05:12 Urine Urobilinogen 0.2 mg/dL (Negative) 03/07/24 05:12 Ur Leukocyte Esterase Trace (Negative) A 03/07/24 05:12 Urine RBC 0-2 /hpf (0-2) 03/07/24 05:12 Urine WBC 0-5 /hpf (0-5) 03/07/24 05:12 Ur Squamous Epith Cells 0-5 /hpf (0-5) 03/07/24 05:12 Amorphous Sediment Not Reportable 03/07/24 05:12 Urine Bacteria None seen /hpf (NONE) 03/07/24 05:12 Hyaline Casts 0-4 /lpf H 03/07/24 05:12 Urine Opiates Screen Negative ng/mL (Negative) 03/07/24 05:12 Ur Barbiturates Screen Negative ng/mL (Negative) 03/07/24 05:12 Ur Phencyclidine Scrn Negative ng/mL (Negative) 03/07/24 05:12 Ur Amphetamines Screen Negative ng/mL (Negative) 03/07/24 05:12 U Benzodiazepines Scrn Negative ng/mL (Negative) 03/07/24 05:12 Urine Cocaine Screen Negative ng/mL (Negative) 03/07/24 05:12 U Marijuana (THC) Screen Negative ng/mL (Negative) 03/07/24 05:12 All radiology interpretation(s) finalized by discharge Discharge Plan Discharge Patient Disposition: Home Clinical Impression: Alzheimer disease Condition: Stable Prescriptions: No Action sulfasalazine 500 mg tablet,delayed release (DR/EC) 0.5 g PO QAM Eliquis 5 mg tablet 5 mg PO BID Qty: 60 0RF escitalopram oxalate [Lexapro] 10 mg tablet 10 mg PO QAM Rexulti 1 mg tablet 1 mg PO DAILY buspirone 10 mg tablet 10 mg PO TID Qty: 90 5RF cholecalciferol (vitamin D3) 125 mcg (5,000 unit) Capsule 125 mcg PO QAM mecobalamin (vitamin B12) 500 mcg Tablet,Chewable 500 mcg PO QAM Reese Matrix Plus 3,000 mcg -100 mg-50 mg Tablet Extended Release 1 tab PO QAM acetaminophen 325 mg Tablet 325 - 650 mg PO Q6H PRN (Reason: pain or fever) loperamide 2 mg capsule 4 mg PO BID PRN (Reason: Diarrhea) acetaminophen 500 mg Tablet 500 mg PO Q6H PRN (Reason: pain or fever) estradiol 0.01 % (0.1 mg/gram) cream See Rx Instructions .ROUTE .COMPLEX Rx Instructions: INSERT 1/2 GRAM VAGINALLY TWICE A WEEK FOR VAGINAL ATROPHY. Refresh Digital 0.5-1-0.5 % Drops 1 - 2 drp OPHTHALMIC (EYE) Q2H PRN (Reason: Dry Eyes) ibuprofen 400 mg Tablet 400 mg PO Q6H PRN (Reason: Pain) rivastigmine 9.5 mg/24 hour patch 24 hour 1 patch topical DAILY hydrocodone-acetaminophen 5-325 mg tablet 1 tab PO Q6H PRN (Reason: pain) Qty: 12 0RF Discharge Orders: Discharge ED (Routine); Ordered 03/07/24 Ordered By: Vitaly Galloway Referrals: Nancie Kenny MD [Primary Care Provider] - 1-3 days Patient Instructions: Dementia (ED), Altered Mental Status (ED), Opioid Safety, Pain Management Activity Restrictions/Additional Instructions: Return for fever, worsening mental status or lethargy, shortness of breath, vomiting, other concerning symptoms. See your doctor this week. Coding Level of Care Code ED [employer] for Jose Rafael Mitchell
[2024-03-07 03:59] LABS: Basophils # 0.1 10^3/uL (0.0-0.1); Basophils % 0.8 %; Eosinophils # 0.1 10^3/uL (0.0-0.8); Eosinophils % 0.7 %; Hematocrit 41.7 % (36-47); Lymphocytes # 2.5 10^3/uL (0.8-4.8); Lymphocytes % 28.3 %; Mean Corpuscular HGB Conc 32.4 g/dL (30-55); Mean Corpuscular Hemoglobin 28.7 pg (27-33); Mean Corpuscular Volume 88.5 fl (85-98); Mean Platelet Volume 9.8 fL (7.4-10.4); Monocytes # 0.7 10^3/uL (0.2-0.9); Monocytes % 7.6 %; Neutrophils % 62.4 %; Nucleated Red Blood Cells % 0 %; Platelet Count 296 10^3/cmm (157-399); Red Blood Count 4.71 10^6/uL (3.85-5.65); Red Cell Distribution Width 13.7 % (12.1-15.1); White Blood Count 8.82 10^3/uL (3.29-11.43)
[2024-03-07 04:18] LABS: Alanine Aminotransferase 31 U/L (0-33); Albumin Level 4.6 g/dL (3.5-5.2); Alkaline Phosphatase 85 U/L (35-105); Anion Gap 16.1 (5-19); Aspartate Amino Transferase 27 U/L (0-32); Blood Urea Nitrogen 17 mg/dL (8-23); Calcium 10.5 mg/dL (8.5-10.5); Carbon Dioxide 26 mmol/L (22-29); Chloride 101 mmol/L (98-107); Creatinine Clr Calc Pharmacy 46.4947; Globulin 2.8 g/dL (1.3-4.6); Glucose 109 mg/dL (65-115); Magnesium 2.2 mg/dL (1.7-2.3); Osmolality Calculated 290 mOsm/kg (285-295); Potassium 4.1 mmol/L (3.5-5.1); Sodium 139 mmol/L (136-145); Total Bilirubin 0.6 mg/dL (0.15-1.2); Total Protein 7.4 g/dL (6.6-8.7)
[2024-03-07 04:19] LABS: Lactic Sepsis W/Reflex 1.7 mmol/L (0.5-2.2)
[2024-03-07 04:22] LABS: Creatine Phosphokinase 374 U/L (26-192)
[2024-03-07 05:28] LABS: Bilirubin Urine Negative (Negative); Blood Urine Negative (Negative); Glucose Urine UA Negative (Normal); Ketones Urine Negative (Negative); Leukocyte Esterase Urine Trace (Negative); Nitrate Urine Negative (Negative); Protein Urine Negative (Negative); Specific Gravity, Urine 1.007 (1.005-1.030); Urine Appearance Clear (CLEAR); Urine Color Yellow (Yellow); Urobilinogen Urine 0.2 mg/dL (Negative)
[2024-03-07 05:32] LABS: Add Urine Microscopic? YES; Bacteria Urine None Seen /hpf; Hyaline Casts Urine 0-4 /lpf; RBC Urine 0-2 /hpf (0-2); Squamous Epithelial Cell Urine 0-5 /hpf (0-5); WBC Urine 0-5 /hpf (0-5)
[2024-03-07 05:37] LABS: Amphetamines Screen Urine Negative (Negative); Barbiturates Screen Urine Negative (Negative); Benzodiazepines Screen Urine Negative (Negative); Cocaine Screen Urine Negative (Negative); Opiate Screen Urine Negative (Negative); PCP Screen Urine Negative (Negative); THC Screen Urine Negative (Negative)
[2024-03-07 05:41] VITALS: BP 184/95; PULSE 65; RESP 18; O2SAT 99
--- NOTE | 2024-03-07 06:14 | PC.NURSE ---
Marialuisa contacted for report. no answer. will try again.
--- NOTE | 2024-03-07 06:22 | PC.NURSE ---
contacted Natalie at [facility] for report. she stated that patient is ok to return to facility until meeting between family and DON about higher level of care.
[2024-03-07] MEDS: metoprolol succinate ER (24 HR) 25 mg Tablet PO (06:57)
[2024-03-07 06:59] VITALS: BP 178/110; PULSE 89; O2SAT 94
== END 2024-03-07 07:00 | disposition home or self-care (01) ==
PROVIDERS: Emergency Provider Emergency Medicine; PCP Internal Medicine
DX: G30.9 Alzheimer's disease, unspecified (principal); F02.80 Dementia in other diseases classified elsewhere, unspecified severity, without behavioral disturbance, psychotic disturbance, mood disturbance, and anxiety; Z79.01 Long term (current) use of anticoagulants
CPT/HCPCS: 70450; 71045; 80053; 80306; 81001; 82550; 83605; 83735; 85025; 86140; 93005; 99285

== ENCOUNTER → 2024-05-11 14:28 | Outpatient (BNVA) | payer MEDICARE, BC, SELFPAY | PROVIDERS: PCP Internal Medicine; Visit Provider Podiatrist Foot & Ankle Surgery | DX: L60.3 Nail dystrophy (principal); I73.9 Peripheral vascular disease, unspecified | CPT/HCPCS: 11721 ==

== ENCOUNTER 2024-06-13 15:35 | Outpatient (CLI) | payer MEDICARE, BC, SELFPAY ==
[2024-06-13 15:40] LABS: Add Urine Microscopic? NO
[2024-06-13 15:45] LABS: Bilirubin Urine Negative (Negative); Blood Urine Negative (Negative); Glucose Urine UA Negative (Normal); Ketones Urine Negative (Negative); Leukocyte Esterase Urine Negative (Negative); Nitrate Urine Negative (Negative); Protein Urine Negative (Negative); Specific Gravity, Urine 1.007 (1.005-1.030); Urine Appearance Clear (CLEAR); Urine Color Yellow (Yellow); Urobilinogen Urine 0.2 mg/dL (Negative)
[2024-06-13 15:52] LABS: Add Urine Culture? No; Charge for UA Resulting for Rev
== END 2024-06-13 15:36 | disposition home or self-care (01) ==
LOC: LAB 15:37
PROVIDERS: PCP Internal Medicine; Visit Provider Family Medicine
DX: N39.0 Urinary tract infection, site not specified (principal)
CPT/HCPCS: 81003; 87086

== ENCOUNTER 2024-07-31 09:01 | Outpatient (CLI) | payer MEDICARE, BC, SELFPAY ==
[2024-07-31 09:30] LABS: Basophils # 0.1 10^3/uL (0.0-0.1); Basophils % 0.9 %; Eosinophils # 0.1 10^3/uL (0.0-0.8); Eosinophils % 1.3 %; Hematocrit 39.6 % (36-47); Lymphocytes # 2.3 10^3/uL (0.8-4.8); Lymphocytes % 27.8 %; Mean Corpuscular HGB Conc 31.8 g/dL (30-55); Mean Corpuscular Hemoglobin 28.6 pg (27-33); Mean Corpuscular Volume 89.8 fl (85-98); Mean Platelet Volume 9.6 fL (7.4-10.4); Monocytes # 0.7 10^3/uL (0.2-0.9); Monocytes % 7.9 %; Neutrophils # 5.05 10^3/uL (1.8-7.7); Neutrophils % 61.7 %; Nucleated Red Blood Cells % 0 %; Platelet Count 318 10^3/cmm (157-399); Red Blood Count 4.41 10^6/uL (3.85-5.65); Red Cell Distribution Width 14.2 % (12.1-15.1); White Blood Count 8.18 10^3/uL (3.29-11.43)
[2024-07-31 10:05] LABS: Alanine Aminotransferase 26 U/L (0-33); Albumin Level 4.3 g/dL (3.5-5.2); Alkaline Phosphatase 109 U/L (35-105); Anion Gap 16.2 (5-19); Aspartate Amino Transferase 21 U/L (0-32); Blood Urea Nitrogen 12 mg/dL (8-23); Calcium 9.7 mg/dL (8.5-10.5); Carbon Dioxide 24 mmol/L (22-29); Chloride 103 mmol/L (98-107); Globulin 2.7 g/dL (1.3-4.6); Glucose 97 mg/dL (65-115); NT Pro B Type Natriuretic Pept 395 pg/mL (0-450); Osmolality Calculated 288 mOsm/kg (285-295); Potassium 4.2 mmol/L (3.5-5.1); Sodium 139 mmol/L (136-145); Total Bilirubin 0.5 mg/dL (0.15-1.2)
== END 2024-07-31 09:02 | disposition home or self-care (01) ==
PROVIDERS: PCP Internal Medicine; Visit Provider Family Medicine
DX: F07.0 Personality change due to known physiological condition (principal); I50.40 Unspecified combined systolic (congestive) and diastolic (congestive) heart failure; F29 Unspecified psychosis not due to a substance or known physiological condition; F43.25 Adjustment disorder with mixed disturbance of emotions and conduct
CPT/HCPCS: 80053; 83880; 85025

== ENCOUNTER → 2024-08-17 13:43 | Outpatient (BNVA) | payer MEDICARE, BC, SELFPAY | PROVIDERS: PCP Internal Medicine; Visit Provider Podiatrist Foot & Ankle Surgery | DX: I73.9 Peripheral vascular disease, unspecified (principal); L60.3 Nail dystrophy; M79.89 Other specified soft tissue disorders | CPT/HCPCS: 11721; 99213 ==

== ENCOUNTER 2024-09-21 13:19 | Outpatient (CLI) | payer MEDICARE, BC, SELFPAY ==
[2024-09-21 13:50] LABS: Bilirubin Urine Negative (Negative); Blood Urine Negative (Negative); Glucose Urine UA Negative (Normal); Ketones Urine Negative (Negative); Leukocyte Esterase Urine 1+ (Negative); Nitrate Urine Negative (Negative); Protein Urine Negative (Negative); Specific Gravity, Urine 1.007 (1.005-1.030); Urine Appearance Clear (CLEAR); Urine Color Yellow (Yellow); Urobilinogen Urine 0.2 mg/dL (Negative); pH Urine 6.5 (5-7)
[2024-09-21 13:55] LABS: Add Urine Microscopic? YES; Bacteria Urine None Seen /hpf; RBC Urine 0-2 /hpf (0-2); Squamous Epithelial Cell Urine 0-5 /hpf (0-5); WBC Urine 0-5 /hpf (0-5)
[2024-09-21 14:08] LABS: Add Urine Culture? No
== END 2024-09-21 13:20 | disposition home or self-care (01) ==
LOC: LAB 13:26
PROVIDERS: PCP Internal Medicine; Visit Provider Family Medicine
DX: N39.0 Urinary tract infection, site not specified (principal)
CPT/HCPCS: 81001; 87086

== ENCOUNTER 2024-09-26 05:19 | Emergency (ER) | payer MEDICARE, BC, SELFPAY ==
--- NOTE | 2024-09-26 05:26 | ECG_ITS ---
[facility] Date: 2024-09-26 Pat Name: Natalia Jackson Department: Room: Gender: Female Card Boxer: : 1945 Requested By: Maximilian Matamoros Order Number: [id number] Cornelio MD: Tutu Duong M.D. Measurements Intervals [place] Rate: 66 P: -5 WV: 161 QRS: -10 QRSD: 80 T: 11 QT: 397 QTc: 416 Interpretive Statements SINUS RHYTHM NONSPECIFIC T-WAVE ABNORMALITY Compared to ECG 03/07/2024 03:11:14 No significant changes Electronically Signed On 09-26-2024 08:52:14 CDT by Tutu Duong M.D. [email or web address]
--- NOTE | 2024-09-26 05:26 | CTR_ITS ---
PROCEDURE INFORMATION: Exam: CTA Head With Contrast, Arteriography Exam date and time: 09/26/2024 5:43 AM Age: 78 years old Clinical indication: Speech disturbance; EMS arrival from [facility] for concern of stroke. Patient has stuttered speech. Last known well time 1800 hours yesterday. History of alzheimer's. ; Additional info: Stroke symptoms TECHNIQUE: Imaging protocol: Computed tomographic angiography of the head with contrast. Exam focused on the arteries. 3D rendering (Not supervised by radiologist): MIP and/or 3D reconstructed images were created by the technologist. Radiation optimization: All CT scans at this facility use at least one of these dose optimization techniques: automated exposure control; mA and/or kV adjustment per patient size (includes targeted exams where dose is matched to clinical indication); or iterative reconstruction. Contrast material: OMNI 350; Contrast volume: 100 ml; Contrast route: INTRAVENOUS (IV); COMPARISON: CT angio headneck* [id number] 06/29/2023 2:30 PM RADIATION DOSE METRICS: Total DLP (mGy-cm): 387.89 FINDINGS: ANTERIOR CIRCULATION: Right internal carotid artery: There is mild stenosis secondary to calcified plaque. Right middle cerebral artery: There is severe focal stenosis of the distal M1 segment of the right middle cerebral artery which appears more prominent when compared with the prior exam. The M2 branches appear patent. Right anterior cerebral artery: No occlusion or significant stenosis. No aneurysm. Left internal carotid artery: There is ktxz-aa-cxiqnmnt stenosis of the supraclinoid segment and mild stenosis of the cavernous segment secondary to soft and calcified plaque. Left middle cerebral artery: No occlusion or significant stenosis. No aneurysm. Left anterior cerebral artery: No occlusion or significant stenosis. No aneurysm. POSTERIOR CIRCULATION: Right vertebral artery: There is moderate focal stenosis of the V4 segment secondary to soft and calcified plaque. Left vertebral artery: There is mild stenosis secondary to calcified plaque. Basilar artery: No occlusion or significant stenosis. No aneurysm. Right posterior cerebral artery: No occlusion or significant stenosis. No aneurysm. Left posterior cerebral artery: No occlusion or significant stenosis. No aneurysm. Brain: No definite mass, mass effect, or midline shift. Cerebral ventricles: No ventriculomegaly. Bones/joints: Unremarkable. No acute fracture. Soft tissues: Unremarkable. PROCEDURE INFORMATION: Exam: CTA Neck With Contrast Exam date and time: 09/26/2024 5:43 AM Age: 78 years old Clinical indication: Speech disturbance; EMS arrival from [facility] for concern of stroke. Patient has stuttered speech. Last known well time 1800 hours yesterday. History of alzheimer's. ; Additional info: Stroke symptoms TECHNIQUE: Imaging protocol: Computed tomographic angiography of the neck with contrast. Exam focused on the cervical segments of the vasculature. 3D rendering (Not supervised by radiologist): MIP and/or 3D reconstructed images were created by the technologist. Radiation optimization: All CT scans at this facility use at least one of these dose optimization techniques: automated exposure control; mA and/or kV adjustment per patient size (includes targeted exams where dose is matched to clinical indication); or iterative reconstruction. Contrast material: OMNI 350; Contrast volume: 100 ml; Contrast route: INTRAVENOUS (IV); COMPARISON: CT angio headneck* [id number] 06/29/2023 2:30 PM RADIATION DOSE METRICS: Total DLP (mGy-cm): 387.89 FINDINGS: Right common carotid artery: No stenosis. No dissection or occlusion. Right internal carotid artery: There is moderate plaque at the right carotid bulb and bifurcation. There is stenosis at the right carotid bulb and at the origin of the right internal carotid artery measuring approximately 50%. The remainder of the right internal carotid artery appears patent. Right external carotid artery: No occlusion or stenosis of the origin. Left common carotid artery: No stenosis. No dissection or occlusion. Left internal carotid artery: There is mild to moderate plaque at the left carotid bulb and bifurcation. There is stenosis of the left carotid bulb and at the origin of the left internal carotid artery measuring less than 50%. The remainder of the left internal carotid artery is patent. Left external carotid artery: No occlusion or stenosis of the origin. Right vertebral artery: The right vertebral artery is hypoplastic but appears patent. Left vertebral artery: There is mild stenosis at the origin of the left vertebral artery secondary to soft plaque. The remainder appears patent. Left subclavian artery: There is mild to moderate left subclavian artery stenosis secondary to soft and calcified plaque. Soft tissues: Normal. No significant soft tissue swelling. Bones/joints: No acute fracture. CT/CT angio headneck* [id number] IMPRESSION: 1. 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 The M2 branches appear patent. 2. Bilateral internal carotid artery stenosis left greater than right. 3. Moderate focal stenosis of the right vertebral artery IMPRESSION: 1. Mild to moderate stenosis the right carotid bulb/origin of the right internal carotid artery. 2. Mild stenosis of the left carotid bulb/origin of the left internal carotid artery. 3. Mild stenosis at the origin of the left vertebral artery. 4. Xtvr-dl-slaqhepn left subclavian artery stenosis. REFERENCES: NASCET CRITERIA. The degree of stenosis in the cervical segment of the internal carotid artery is based on NASCET criteria. Normal is no stenosis. Mild is less than 50% stenosis. Moderate is 50-69% stenosis. Severe is 70% to 99% stenosis. Total occlusion is no detectable patent lumen.
--- NOTE | 2024-09-26 05:26 | CTR_ITS ---
PROCEDURE INFORMATION: Exam: CT Head Without Contrast Exam date and time: 09/26/2024 5:40 AM Age: 78 years old Clinical indication: Stroke-like symptoms; Speech disturbance; Additional info: EMS arrival from [facility] for concern of stroke. Patient has stuttered speech. Last known well time 1800 hours yesterday. History of alzheimer's TECHNIQUE: Imaging protocol: Computed tomography of the head without contrast. Radiation optimization: All CT scans at this facility use at least one of these dose optimization techniques: automated exposure control; mA and/or kV adjustment per patient size (includes targeted exams where dose is matched to clinical indication); or iterative reconstruction. Other technique: STROKE PROTOCOL was implemented. COMPARISON: CT head wo con* [id number] 03/07/2024 3:20 AM RADIATION DOSE METRICS: Total DLP (mGy-cm): 1080.38 FINDINGS: Brain: There is mild to moderate small vessel disease. Chronic lacunar infarcts are identified in the left basal ganglia. There is no evidence of acute parenchymal hemorrhage, extra-axial collection, or acute infarction. There is no mass effect, midline shift, or downward herniation. Cerebral ventricles: No ventriculomegaly. Paranasal sinuses: Visualized sinuses are unremarkable. No fluid levels. Mastoid air cells: Visualized mastoid air cells are well aerated. Bones: Unremarkable. No acute fracture. Soft tissues: Unremarkable. CT/CT head thrombolytic [id number] IMPRESSION: Kpgz-to-btojqbky small vessel disease. Chronic lacunar infarcts. No evidence of acute intracranial process. ASSESSMENT: ASPECTS ([place] Stroke Program Early CT Score) is 10.
--- NOTE | 2024-09-26 05:28 | W.ED.AMS ---
Documented by User: Maximilian Matamoros MD 09/26/24 05:55 HPI - Altered Mental Status General: Chief Complaint: Headache Stated Complaint: AMS Time Seen by Provider: 09/26/24 05:22 History of Present Illness: Patient comes in by EMS from the memory care unit with concerns for possible stroke. Per EMS the staff was concerned for stroke because she started having some stuttering about 12 hours ago. The patient has dementia. She is alert and oriented x 1 which is her baseline per EMS. She denies any pain, weakness, or numbness. Physical exam is unremarkable including an NIHSS of 0. The patient was seen for similar symptoms about 8 months ago with an unremarkable workup at that time. Will check labs, CT head without IV contrast, CTA head and neck, and reassess. Related Data Home Medications ?Medication ?Instructions ?Recorded ?Confirmed sulfasalazine 500 mg 0.5 g PO QAM 01/10/21 08/17/24 tablet,delayed release escitalopram oxalate 10 mg tablet 10 mg PO QAM 05/15/22 08/17/24 (Lexapro) cholecalciferol (vitamin D3) 125 125 mcg PO QAM 01/09/23 08/17/24 mcg (5,000 unit) capsule mecobalamin (vitamin B12) 500 mcg 500 mcg PO QAM 01/09/23 08/17/24 chewable tablet acetaminophen 325 mg tablet 325 - 650 mg PO Q6H PRN pain or 06/29/23 08/17/24 fever acetaminophen 500 mg tablet 500 mg PO Q6H PRN pain or fever 06/29/23 08/17/24 biotin 3,000 mcg-silicon dioxide 1 tab PO QAM 06/29/23 08/17/24 100 jx-C-fefpepjm 50 mg tablet ER ([place] Matrix Plus) zgldknipdbbkczkbniwgdu-szvputit-hnekihnj 1 - 2 drp ophthalmic (eye) Q2H PRN 06/29/23 08/17/24 80 0.5 %-1 %-0.5 % eye drops Dry Eyes (Refresh Digital) estradiol 0.01% (0.1 mg/gram) See Rx Instructions .Route .COMPLEX 06/29/23 08/17/24 vaginal cream loperamide 2 mg capsule 4 mg PO BID PRN Diarrhea 06/29/23 08/17/24 ibuprofen 400 mg tablet 400 mg PO Q6H PRN Pain 07/10/23 08/17/24 rivastigmine 9.5 mg/24 hour 1 patch topical DAILY 07/10/23 08/17/24 transdermal patch brexpiprazole 1 mg tablet (Rexulti) 1 mg PO DAILY 01/27/24 08/17/24 Previous Rx's ?Medication ?Instructions ?Recorded apixaban 5 mg tablet (Eliquis) 5 mg PO BID #60 tabs 07/22/23 buspirone 10 mg tablet 10 mg PO TID #90 tabs 08/25/23 hydrocodone 5 mg-acetaminophen 325 1 tab PO Q6H PRN pain #12 tabs 12/13/23 mg tablet aspirin 81 mg tablet,delayed 81 mg PO DAILY #30 tabs 09/26/24 release atorvastatin 40 mg tablet (Lipitor) 40 mg PO DAILY #30 tabs 09/26/24 Allergies Allergy/AdvReac Type Severity Reaction Status Date / Time pseudoephedrine Allergy Intermediate ADR/ALGY-Hy Verified 09/26/24 05:41 potension Review of Systems General: Reports: Other (Review of systems is limited secondary to patient's dementia) Neuro: Reports: other (Stuttering speech) [facility] ED PFSH: Medical History Narcolepsy without cataplexy Peripheral arterial disease Onychodystrophy Cervical dystonia Social History Smoking and tobacco/nicotine status: never used tobacco/nicotine Physical Exam Const: COMMON NORMALS: no acute distress and healthy appearing HENMT: COMMON NORMALS: normocephalic and atraumatic HEAD & SCALP: normocephalic and atraumatic Eye: COMMON NORMALS: Equal, round and reactive pupils present and EOMs intact bilaterally PUPIL: Yes Equal, round and reactive pupils present Neck/C-Spine: COMMON NORMALS: full ROM and supple Resp: COMMON NORMALS: normal respiratory effort, No retractions and No use of accessory muscles Cardio: COMMON NORMALS: regular rate and regular rhythm RATE: regular rate RHYTHM: regular rhythm GI: COMMON NORMALS: Normal to inspection, nondistended, normoactive bowel sounds present, Soft to palpation and non-tender PALPATION: Yes Soft to palpation Extremity: COMMON NORMALS: normal to inspection and full ROM Neuro: OTHER: NIHSS equals 0 Patient is alert and oriented x 1 Skin: COMMON NORMALS: no rashes or lesions noted and no wounds GENERAL SKIN EXAM: no rashes or lesions noted Course Vital Signs: Vital signs: Vital Signs Temperature 98.6 F 09/26/24 05:41 Pulse Rate 70 09/26/24 06:07 Respiratory Rate 19 H 09/26/24 06:07 Blood Pressure 145/70 09/26/24 06:07 Pulse Oximetry 96 09/26/24 06:07 Oxygen Delivery Me thod Room Air 09/26/24 06:07 MDM - Altered Mental Status Medical Decision Making Awaiting test results. Will sign out to the oncoming physician. Lab Data 09/26/24 05:35 09/26/24 05:[address] 09/26/24 05:26 IMPRESSION: Hawu-mo-rfgyjube small vessel disease. Chronic lacunar infarcts. No evidence of acute intracranial process. ASSESSMENT: ASPECTS ([place] Stroke Program Early CT Score) is 10. ADDENDUM: 09/26/24 0604 THIS REPORT CONTAINS FINDINGS THAT MAY BE CRITICAL TO PATIENT CARE. The findings were verbally communicated via telephone conference with Maximilian Matamoros at 6:02 AM CDT on 09/26/2024. The findings were acknowledged and understood. Head/Neck CTA 09/26/24 05:26 IMPRESSION: 1. 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 The M2 branches appear patent. 2. Bilateral internal carotid artery stenosis left greater than right. 3. Moderate focal stenosis of the right vertebral artery IMPRESSION: 1. Mild to moderate stenosis the right carotid bulb/origin of the right internal carotid artery. 2. Mild stenosis of the left carotid bulb/origin of the left internal carotid artery. 3. Mild stenosis at the origin of the left vertebral artery. 4. Ocxm-fs-qpdutonm left subclavian artery stenosis. REFERENCES: NASCET CRITERIA. The degree of stenosis in the cervical segment of the internal carotid artery is based on NASCET criteria. Normal is no stenosis. Mild is less than 50% stenosis. Moderate is 50-69% stenosis. Severe is 70% to 99% stenosis. Total occlusion is no detectable patent lumen. Laboratory Results WBC 11.38 10^3/uL (3.29-11.43) 09/26/24 05:35 RBC 3.85 10^6/uL (3.85-5.65) 09/26/24 05:35 Hgb 11.30 g/dL (11.27-16.99) 09/26/24 05:35 Hct 34.5 % (36-47) L 09/26/24 05:35 MCV 89.6 fl (85-98) 09/26/24 05:35 MCH 29.4 pg (27-33) 09/26/24 05:35 MCHC 32.8 g/dL (30-55) 09/26/24 05:35 RDW 13.7 % (12.1-15.1) 09/26/24 05:35 Plt Count 242 10^3/cmm (157-399) 09/26/24 05:35 MPV 9.2 fL (7.4-10.4) 09/26/24 05:35 Neut % (Auto) 68.8 % 09/26/24 05:35 Lymph % (Auto) 20.3 % 09/26/24 05:35 [place] % (Auto) 9.6 % 09/26/24 05:35 Eos % (Auto) 0.7 % 09/26/24 05:35 Baso % (Auto) 0.4 % 09/26/24 05:35 Neut # (Auto) 7.84 10^3/uL (1.8-7.7) H 09/26/24 05:35 Lymph # (Auto) 2.3 10^3/uL (0.8-4.8) 09/26/24 05:35 [place] # (Auto) 1.1 10^3/uL (0.2-0.9) H 09/26/24 05:35 Eos # (Auto) 0.1 10^3/uL (0.0-0.8) 09/26/24 05:35 Baso # (Auto) 0.0 10^3/uL (0.0-0.1) 09/26/24 05:35 Nucleated RBC % (auto) 0 % 09/26/24 05:35 Nucleated RBCs # 0.0 /100WBC 09/26/24 05:35 Sodium 139 mmol/L (136-145) 09/26/24 05:35 Potassium 3.4 mmol/L (3.5-5.1) L 09/26/24 05:35 Chloride 104 mmol/L (98-107) 09/26/24 05:35 Carbon Dioxide 23 mmol/L (22-29) 09/26/24 05:35 Anion Gap 15.4 (5-19) 09/26/24 05:35 BUN 19 mg/dL (8-23) 09/26/24 05:35 Creatinine 0.6 mg/dL (0.5-0.9) 09/26/24 05:35 GFR Calculation Not Reportable 09/26/24 05:35 Glucose 105 mg/dL (65-115) 09/26/24 05:35 POC Glucose 104 mg/dL (70-110) 09/26/24 06:11 Calculated Osmolality 291 mOsm/kg (285-295) 09/26/24 05:35 Calcium 9.1 mg/dL (8.5-10.5) 09/26/24 05:35 Total Bilirubin 0.6 mg/dL (0.15-1.2) 09/26/24 05:35 AST 36 U/L (0-32) H 09/26/24 05:35 ALT 31 U/L (0-33) 09/26/24 05:35 Alkaline Phosphatase 69 U/L (35-105) 09/26/24 05:35 Total Protein 6.0 g/dL (6.6-8.7) L 09/26/24 05:35 Albumin 3.6 g/dL (3.5-5.2) 09/26/24 05:35 Globulin 2.4 g/dL (1.3-4.6) 09/26/24 05:35 Urine Color Yellow (Yellow) 09/26/24 06:49 Urine Appearance Clear (CLEAR) 09/26/24 06:49 Urine pH 7.5 (5-7) 09/26/24 06:49 Ur Specific [place] 1.062 (1.005-1.030) H 09/26/24 06:49 Urine Protein Negative (Negative) 09/26/24 06:49 Urine Glucose (UA) Negative (Normal) 09/26/24 06:49 Urine Ketones Negative (Negative) 09/26/24 06:49 Urine Blood Negative (Negative) 09/26/24 06:49 Urine Nitrate Negative (Negative) 09/26/24 06:49 Urine Bilirubin Negative (Negative) 09/26/24 06:49 Urine Urobilinogen 1.0 mg/dL (Negative) 09/26/24 06:49 Ur Leukocyte Esterase Negative (Negative) 09/26/24 06:49 Urine RBC 0-2 /hpf (0-2) 09/26/24 06:49 Urine WBC 0-5 /hpf (0-5) 09/26/24 06:49 Ur Squamous Epith Cells 0-5 /hpf (0-5) 09/26/24 06:49 Amorphous Sediment Not Reportable 09/26/24 06:49 Urine Bacteria None seen /hpf (NONE) 09/26/24 06:49 Hyaline Casts 0-4 /lpf H 09/26/24 06:49 Discharge Plan Discharge Patient Disposition: Home Clinical Impression: Alzheimer disease, History of TIAs Condition: Stable Prescriptions: New aspirin 81 mg tablet,delayed release (DR/EC) 81 mg PO DAILY Qty: 30 0RF atorvastatin [Lipitor] 40 mg tablet 40 mg PO DAILY Qty: 30 0RF No Action sulfasalazine 500 mg tablet,delayed release (DR/EC) 0.5 g PO QAM Eliquis 5 mg tablet 5 mg PO BID Qty: 60 0RF escitalopram oxalate [Lexapro] 10 mg tablet 10 mg PO QAM Rexulti 1 mg tablet 1 mg PO DAILY buspirone 10 mg tablet 10 mg PO TID Qty: 90 5RF cholecalciferol (vitamin D3) 125 mcg (5,000 unit) Capsule 125 mcg PO QAM mecobalamin (vitamin B12) 500 mcg Tablet,Chewable 500 mcg PO QAM Reese Matrix Plus 3,000 mcg -100 mg-50 mg Tablet Extended Release 1 tab PO QAM acetaminophen 325 mg Tablet 325 - 650 mg PO Q6H PRN (Reason: pain or fever) loperamide 2 mg capsule 4 mg PO BID PRN (Reason: Diarrhea) acetaminophen 500 mg Tablet 500 mg PO Q6H PRN (Reason: pain or fever) estradiol 0.01 % (0.1 mg/gram) cream See Rx Instructions .ROUTE .COMPLEX Rx Instructions: INSERT 1/2 GRAM VAGINALLY TWICE A WEEK FOR VAGINAL ATROPHY. Refresh Digital 0.5-1-0.5 % Drops 1 - 2 drp OPHTHALMIC (EYE) Q2H PRN (Reason: Dry Eyes) ibuprofen 400 mg Tablet 400 mg PO Q6H PRN (Reason: Pain) rivastigmine 9.5 mg/24 hour patch 24 hour 1 patch topical DAILY hydrocodone-acetaminophen 5-325 mg tablet 1 tab PO Q6H PRN (Reason: pain) Qty: 12 0RF Discharge Orders: Discharge ED (Routine); Ordered 09/26/24 Ordered By: Zak Keane Referrals: Jose Luis Shah MD [Primary Care Provider, Family Practice] Patient Instructions: Opioid Safety, Pain Management Activity Restrictions/Additional Instructions: Thank you for choosing [facility] for your healthcare needs today. It is very important that you follow up as instructed or that you return to the Emergency Department should you have concerns or if your condition changes or worsens in any way. You were seen in the emergency room with concerns about speech and headache. CT of the head and CTA of the head and neck did not show any acute changes or is some further restriction in blood vessels inside of the brain when compared to a scan done 1 year ago. Recommend adding 81 mg aspirin daily along with atorvastatin 40 mg daily if your primary care doctor at the longterm approves this this is for TIA and stroke prevention along with your Eliquis. Print Language: [place] Citizen Sign Out Sign Out Data: Patient Sign Out occurred on 09/26/24 at 06:19. Patient's care was discussed, and care was transferred from Maximilian Matamoros MD to Zak Keane DO. Coding Level of Care Code ED Bilingual Manager for Chg Fwd Documented by User: Zak Keane DO 09/26/24 07:52 HPI - Altered Mental Status General: Chief Complaint: Headache Stated Complaint: AMS Time Seen by Provider: 09/26/24 05:22 Related Data Home Medications ?Medication ?Instructions ?Recorded ?Confirmed sulfasalazine 500 mg 0.5 g PO QAM 01/10/21 08/17/24 tablet,delayed release escitalopram oxalate 10 mg tablet 10 mg PO QAM 05/15/22 08/17/24 (Lexapro) cholecalciferol (vitamin D3) 125 125 mcg PO QAM 01/09/23 08/17/24 mcg (5,000 unit) capsule mecobalamin (vitamin B12) 500 mcg 500 mcg PO QAM 01/09/23 08/17/24 chewable tablet acetaminophen 325 mg tablet 325 - 650 mg PO Q6H PRN pain or 06/29/23 08/17/24 fever acetaminophen 500 mg tablet 500 mg PO Q6H PRN pain or fever 06/29/23 08/17/24 biotin 3,000 mcg-silicon dioxide 1 tab PO QAM 06/29/23 08/17/24 100 xi-X-jimsorvf 50 mg tablet ER ([place] Matrix Plus) ywemntcwimzkzbluukkwni-svckmzof-sbwtpmcj 1 - 2 drp ophthalmic (eye) Q2H PRN 06/29/23 08/17/24 80 0.5 %-1 %-0.5 % eye drops Dry Eyes (Refresh Digital) estradiol 0.01% (0.1 mg/gram) See Rx Instructions .Route .COMPLEX 06/29/23 08/17/24 vaginal cream loperamide 2 mg capsule 4 mg PO BID PRN Diarrhea 06/29/23 08/17/24 ibuprofen 400 mg tablet 400 mg PO Q6H PRN Pain 07/10/23 08/17/24 rivastigmine 9.5 mg/24 hour 1 patch topical DAILY 07/10/23 08/17/24 transdermal patch brexpiprazole 1 mg tablet (Rexulti) 1 mg PO DAILY 01/27/24 08/17/24 Previous Rx's ?Medication ?Instructions ?Recorded apixaban 5 mg tablet (Eliquis) 5 mg PO BID #60 tabs 07/22/23 buspirone 10 mg tablet 10 mg PO TID #90 tabs 08/25/23 hydrocodone 5 mg-acetaminophen 325 1 tab PO Q6H PRN pain #12 tabs 12/13/23 mg tablet aspirin 81 mg tablet,delayed 81 mg PO DAILY #30 tabs 09/26/24 release atorvastatin 40 mg tablet (Lipitor) 40 mg PO DAILY #30 tabs 09/26/24 Allergies Allergy/AdvReac Type Severity Reaction Status Date / Time pseudoephedrine Allergy Intermediate ADR/ALGY-Hy Verified 09/26/24 05:41 potension [facility] ED PFS: Medical History Narcolepsy without cataplexy Peripheral arterial disease Onychodystrophy Cervical dystonia Social History Smoking and tobacco/nicotine status: never used tobacco/nicotine Course Vital Signs: Vital signs: Vital Signs Temperature 98.6 F 09/26/24 05:41 Pulse Rate 70 09/26/24 06:07 Respiratory Rate 19 H 09/26/24 06:07 Blood Pressure 145/70 09/26/24 06:07 Pulse Oximetry 96 09/26/24 06:07 Oxygen Delivery Me thod Room Air 09/26/24 06:07 MDM - Altered Mental Status Medical Decision Making Awaiting test results. Will sign out to the oncoming physician. Care assumed at change of shift CTA of the head and neck shows distal segment M1 branch with worsening stenosis from a year ago. Patient is asymptomatic at this time with an NIH of 0. She is also on apixaban. Patient presented with report of stuttering and headaches that seem to have resolved according to staff at the longterm she was at her baseline when she arrived here. Will add aspirin 81 mg daily as well as atorvastatin 40 mg daily. Will ask longterm staff to clear this with her primary care doc at the longterm. Lab Data 09/26/24 05:35 09/26/24 05:[address] 09/26/24 05:26 IMPRESSION: Xosy-fj-vwujqjlf small vessel disease. Chronic lacunar infarcts. No evidence of acute intracranial process. ASSESSMENT: ASPECTS ([place] Stroke Program Early CT Score) is 10. ADDENDUM: 09/26/24 0604 THIS REPORT CONTAINS FINDINGS THAT MAY BE CRITICAL TO PATIENT CARE. The findings were verbally communicated via telephone conference with Maximilian Matamoros at 6:02 AM CDT on 09/26/2024. The findings were acknowledged and understood. Head/Neck CTA 09/26/24 05:26 IMPRESSION: 1. 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 The M2 branches appear patent. 2. Bilateral internal carotid artery stenosis left greater than right. 3. Moderate focal stenosis of the right vertebral artery IMPRESSION: 1. Mild to moderate stenosis the right carotid bulb/origin of the right internal carotid artery. 2. Mild stenosis of the left carotid bulb/origin of the left internal carotid artery. 3. Mild stenosis at the origin of the left vertebral artery. 4. Lgxe-od-rqdnngdh left subclavian artery stenosis. REFERENCES: NASCET CRITERIA. The degree of stenosis in the cervical segment of the internal carotid artery is based on NASCET criteria. Normal is no stenosis. Mild is less than 50% stenosis. Moderate is 50-69% stenosis. Severe is 70% to 99% stenosis. Total occlusion is no detectable patent lumen. Laboratory Results WBC 11.38 10^3/uL (3.29-11.43) 09/26/24 05:35 RBC 3.85 10^6/uL (3.85-5.65) 09/26/24 05:35 Hgb 11.30 g/dL (11.27-16.99) 09/26/24 05:35 Hct 34.5 % (36-47) L 09/26/24 05:35 MCV 89.6 fl (85-98) 09/26/24 05:35 MCH 29.4 pg (27-33) 09/26/24 05:35 MCHC 32.8 g/dL (30-55) 09/26/24 05:35 RDW 13.7 % (12.1-15.1) 09/26/24 05:35 Plt Count 242 10^3/cmm (157-399) 09/26/24 05:35 MPV 9.2 fL (7.4-10.4) 09/26/24 05:35 Neut % (Auto) 68.8 % 09/26/24 05:35 Lymph % (Auto) 20.3 % 09/26/24 05:35 [place] % (Auto) 9.6 % 09/26/24 05:35 Eos % (Auto) 0.7 % 09/26/24 05:35 Baso % (Auto) 0.4 % 09/26/24 05:35 Neut # (Auto) 7.84 10^3/uL (1.8-7.7) H 09/26/24 05:35 Lymph # (Auto) 2.3 10^3/uL (0.8-4.8) 09/26/24 05:35 [place] # (Auto) 1.1 10^3/uL (0.2-0.9) H 09/26/24 05:35 Eos # (Auto) 0.1 10^3/uL (0.0-0.8) 09/26/24 05:35 Baso # (Auto) 0.0 10^3/uL (0.0-0.1) 09/26/24 05:35 Nucleated RBC % (auto) 0 % 09/26/24 05:35 Nucleated RBCs # 0.0 /100WBC 09/26/24 05:35 Sodium 139 mmol/L (136-145) 09/26/24 05:35 Potassium 3.4 mmol/L (3.5-5.1) L 09/26/24 05:35 Chloride 104 mmol/L (98-107) 09/26/24 05:35 Carbon Dioxide 23 mmol/L (22-29) 09/26/24 05:35 Anion Gap 15.4 (5-19) 09/26/24 05:35 BUN 19 mg/dL (8-23) 09/26/24 05:35 Creatinine 0.6 mg/dL (0.5-0.9) 09/26/24 05:35 GFR Calculation Not Reportable 09/26/24 05:35 Glucose 105 mg/dL (65-115) 09/26/24 05:35 POC Glucose 104 mg/dL (70-110) 09/26/24 06:11 Calculated Osmolality 291 mOsm/kg (285-295) 09/26/24 05:35 Calcium 9.1 mg/dL (8.5-10.5) 09/26/24 05:35 Total Bilirubin 0.6 mg/dL (0.15-1.2) 09/26/24 05:35 AST 36 U/L (0-32) H 09/26/24 05:35 ALT 31 U/L (0-33) 09/26/24 05:35 Alkaline Phosphatase 69 U/L (35-105) 09/26/24 05:35 Total Protein 6.0 g/dL (6.6-8.7) L 09/26/24 05:35 Albumin 3.6 g/dL (3.5-5.2) 09/26/24 05:35 Globulin 2.4 g/dL (1.3-4.6) 09/26/24 05:35 Urine Color Yellow (Yellow) 09/26/24 06:49 Urine Appearance Clear (CLEAR) 09/26/24 06:49 Urine pH 7.5 (5-7) 09/26/24 06:49 Ur Specific [place] 1.062 (1.005-1.030) H 09/26/24 06:49 Urine Protein Negative (Negative) 09/26/24 06:49 Urine Glucose (UA) Negative (Normal) 09/26/24 06:49 Urine Ketones Negative (Negative) 09/26/24 06:49 Urine Blood Negative (Negative) 09/26/24 06:49 Urine Nitrate Negative (Negative) 09/26/24 06:49 Urine Bilirubin Negative (Negative) 09/26/24 06:49 Urine Urobilinogen 1.0 mg/dL (Negative) 09/26/24 06:49 Ur Leukocyte Esterase Negative (Negative) 09/26/24 06:49 Urine RBC 0-2 /hpf (0-2) 09/26/24 06:49 Urine WBC 0-5 /hpf (0-5) 09/26/24 06:49 Ur Squamous Epith Cells 0-5 /hpf (0-5) 09/26/24 06:49 Amorphous Sediment Not Reportable 09/26/24 06:49 Urine Bacteria None seen /hpf (NONE) 09/26/24 06:49 Hyaline Casts 0-4 /lpf H 09/26/24 06:49 All radiology interpretation(s) finalized by discharge Discharge Plan Discharge Patient Disposition: Home Clinical Impression: Alzheimer disease, History of TIAs Condition: Stable Prescriptions: New aspirin 81 mg tablet,delayed release (DR/EC) 81 mg PO DAILY Qty: 30 0RF atorvastatin [Lipitor] 40 mg tablet 40 mg PO DAILY Qty: 30 0RF No Action sulfasalazine 500 mg tablet,delayed release (DR/EC) 0.5 g PO QAM Eliquis 5 mg tablet 5 mg PO BID Qty: 60 0RF escitalopram oxalate [Lexapro] 10 mg tablet 10 mg PO QAM Rexulti 1 mg tablet 1 mg PO DAILY buspirone 10 mg tablet 10 mg PO TID Qty: 90 5RF cholecalciferol (vitamin D3) 125 mcg (5,000 unit) Capsule 125 mcg PO QAM mecobalamin (vitamin B12) 500 mcg Tablet,Chewable 500 mcg PO QAM Reese Matrix Plus 3,000 mcg -100 mg-50 mg Tablet Extended Release 1 tab PO QAM acetaminophen 325 mg Tablet 325 - 650 mg PO Q6H PRN (Reason: pain or fever) loperamide 2 mg capsule 4 mg PO BID PRN (Reason: Diarrhea) acetaminophen 500 mg Tablet 500 mg PO Q6H PRN (Reason: pain or fever) estradiol 0.01 % (0.1 mg/gram) cream See Rx Instructions .ROUTE .COMPLEX Rx Instructions: INSERT 1/2 GRAM VAGINALLY TWICE A WEEK FOR VAGINAL ATROPHY. Refresh Digital 0.5-1-0.5 % Drops 1 - 2 drp OPHTHALMIC (EYE) Q2H PRN (Reason: Dry Eyes) ibuprofen 400 mg Tablet 400 mg PO Q6H PRN (Reason: Pain) rivastigmine 9.5 mg/24 hour patch 24 hour 1 patch topical DAILY hydrocodone-acetaminophen 5-325 mg tablet 1 tab PO Q6H PRN (Reason: pain) Qty: 12 0RF Discharge Orders: Discharge ED (Routine); Ordered 09/26/24 Ordered By: Zak Keane Referrals: Jose Luis Shah MD [Primary Care Provider, Family Practice] Patient Instructions: Opioid Safety, Pain Management Activity Restrictions/Additional Instructions: Thank you for choosing [facility] for your healthcare needs today. It is very important that you follow up as instructed or that you return to the Emergency Department should you have concerns or if your condition changes or worsens in any way. You were seen in the emergency room with concerns about speech and headache. CT of the head and CTA of the head and neck did not show any acute changes or is some further restriction in blood vessels inside of the brain when compared to a scan done 1 year ago. Recommend adding 81 mg aspirin daily along with atorvastatin 40 mg daily if your primary care doctor at the longterm approves this this is for TIA and stroke prevention along with your Eliquis. Print Language: [place] Citizen Sign Out Sign Out Data: Patient Sign Out occurred on 06/09/25 at 06:19. Patient's care was discussed, and care was transferred from Maximilian Matamoros MD to Zak Keane DO. Coding Level of Care Code ED Bilingual Manager for Jose Rafael Mitchell
[2024-09-26 05:41] VITALS: BP 138/60; PULSE 71; RESP 22; TEMP 37; O2SAT 95; BMI 22.8
[2024-09-26 05:43] LABS: Basophils % 0.4 %; Eosinophils # 0.1 10^3/uL (0.0-0.8); Eosinophils % 0.7 %; Hematocrit 34.5 % (36-47); Lymphocytes # 2.3 10^3/uL (0.8-4.8); Lymphocytes % 20.3 %; Mean Corpuscular HGB Conc 32.8 g/dL (30-55); Mean Corpuscular Hemoglobin 29.4 pg (27-33); Mean Corpuscular Volume 89.6 fl (85-98); Mean Platelet Volume 9.2 fL (7.4-10.4); Monocytes # 1.1 10^3/uL (0.2-0.9); Monocytes % 9.6 %; Neutrophils # 7.84 10^3/uL (1.8-7.7); Neutrophils % 68.8 %; Nucleated Red Blood Cells % 0 %; Platelet Count 242 10^3/cmm (157-399); Red Blood Count 3.85 10^6/uL (3.85-5.65); Red Cell Distribution Width 13.7 % (12.1-15.1); White Blood Count 11.38 10^3/uL (3.29-11.43)
[2024-09-26] MEDS: iohexol 350 mg/mL 500 mL Btl (per mL) IV (05:44)
[2024-09-26 06:07] VITALS: BP 145/70; PULSE 70; RESP 19; O2SAT 96
[2024-09-26 06:13] LABS: Alanine Aminotransferase 31 U/L (0-33); Albumin Level 3.6 g/dL (3.5-5.2); Alkaline Phosphatase 69 U/L (35-105); Anion Gap 15.4 (5-19); Aspartate Amino Transferase 36 U/L (0-32); Blood Urea Nitrogen 19 mg/dL (8-23); Calcium 9.1 mg/dL (8.5-10.5); Carbon Dioxide 23 mmol/L (22-29); Chloride 104 mmol/L (98-107); Creatinine Clr Calc Pharmacy 47.4748; Globulin 2.4 g/dL (1.3-4.6); Glucose 105 mg/dL (65-115); Osmolality Calculated 291 mOsm/kg (285-295); Potassium 3.4 mmol/L (3.5-5.1); Sodium 139 mmol/L (136-145); Total Bilirubin 0.6 mg/dL (0.15-1.2)
[2024-09-26 06:16] LABS: Glucose Point of Care 104 mg/dL (70-110)
[2024-09-26 07:15] LABS: Bilirubin Urine Negative (Negative); Blood Urine Negative (Negative); Glucose Urine UA Negative (Normal); Ketones Urine Negative (Negative); Leukocyte Esterase Urine Negative (Negative); Nitrate Urine Negative (Negative); Protein Urine Negative (Negative); Urine Appearance Clear (CLEAR); Urine Color Yellow (Yellow); pH Urine 7.5 (5-7)
[2024-09-26 07:20] LABS: Add Urine Microscopic? YES; Bacteria Urine None Seen /hpf; Hyaline Casts Urine 0-4 /lpf; RBC Urine 0-2 /hpf (0-2); Squamous Epithelial Cell Urine 0-5 /hpf (0-5); WBC Urine 0-5 /hpf (0-5)
[2024-09-26 07:27] LABS: Specific Gravity, Urine 1.062 (1.005-1.030)
[2024-09-26 08:11] VITALS: BP 141/83; PULSE 73; O2SAT 98
== END 2024-09-26 08:12 | disposition home or self-care (01) ==
PROVIDERS: Emergency Medicine; Emergency Provider Family Medicine; PCP Family Medicine
DX: G30.9 Alzheimer's disease, unspecified (principal); F02.80 Dementia in other diseases classified elsewhere, unspecified severity, without behavioral disturbance, psychotic disturbance, mood disturbance, and anxiety; R51.9 Headache, unspecified; Z79.899 Other long term (current) drug therapy; Z86.73 Personal history of transient ischemic attack (TIA), and cerebral infarction without residual deficits
CPT/HCPCS: 36415; 36416; 70450; 70496; 70498; 80053; 81001; 82962; 85025; 93005; 99285

== ENCOUNTER → 2024-11-03 11:01 | Outpatient (BNVA) | payer MEDICARE, BC, SELFPAY | PROVIDERS: PCP Family Medicine; Visit Provider Podiatrist Foot & Ankle Surgery | DX: I73.9 Peripheral vascular disease, unspecified (principal); L60.3 Nail dystrophy; G30.9 Alzheimer's disease, unspecified; F02.80 Dementia in other diseases classified elsewhere, unspecified severity, without behavioral disturbance, psychotic disturbance, mood disturbance, and anxiety; M79.89 Other specified soft tissue disorders | CPT/HCPCS: 11721 ==

== ENCOUNTER 2024-11-09 10:41 | Observation (INO) | payer MEDICARE, SELFPAY ==
[2024-11-09] VITALS (8 sets, daily range): BP systolic 114–185; BP diastolic 54–88; PULSE 60–68; RESP 18–28; TEMP 36.7–37.6; O2SAT 81–97; BMI 23.9
--- NOTE | 2024-11-09 10:45 | XRR_ITS ---
PROCEDURE INFORMATION: Exam: XR Chest Exam date and time: 11/09/2024 10:58 AM Age: 78 years old Clinical indication: Cough and dyspnea; Additional info: Dyspnea/cough TECHNIQUE: Imaging protocol: Radiologic exam of the chest. Views: 1 view. COMPARISON: CR XR chest 1V portable [id number] 03/07/2024 3:08 AM FINDINGS: Lungs: There is no consolidation. Pleural spaces: There is no pleural effusion or pneumothorax. Heart/Mediastinum: There is mild enlargement of the cardiac silhouette. Bones/joints: Bones are unremarkable. XR/XR chest 1V portable [id number] IMPRESSION: No acute findings.
--- NOTE | 2024-11-09 10:47 | CT_ITS ---
WS: [id number] CT HEAD NONCONTRAST HISTORY: Trauma altered mental status TECHNIQUE: Contiguous axial imaging performed through the brain. Bone and soft tissue windows. Sagittal and coronal reformats reviewed. All CT scans at [facility] use at least one of these dose optimization techniques: automated exposure control; mA and/or kV adjustment per patient size (includes targeted exams where dose is matched to clinical indication); or iterative reconstruction. DLP: 1132.23 mGy.cm COMPARISON: 09/26/2024 No acute intracranial hemorrhage, midline shift or mass effect. Moderate symmetric atrophy and small vessel disease. LEFT thalamic lacunar infarct. Moderate small vessel changes throughout the white matter. Ventricles: Mild dilatation of the ventricular system due to mild atrophy. No inferior displacement the cerebellar tonsils. Paranasal sinuses: As visualized are clear. Mastoid air cells: Well pneumatized. Calvarium and scalp: Skull is intact with no soft tissue edema or swelling. Heavy calcification in the distal vertebral artery and in the intracranial carotid arteries. CT/CT head wo con* [id number] IMPRESSION: 1. No acute intracranial hemorrhage or edema. 2. No skull fracture. 3. Symmetric cerebral and cerebellar atrophy and small vessel disease. 4. Prior LEFT thalamic lacunar infarct.
--- NOTE | 2024-11-09 10:47 | ECG_ITS ---
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 Measurements Intervals [facility] Rate: 66 P: 22 SD: 167 QRS: -14 QRSD: 74 T: 24 QT: 396 QTc: 416 Interpretive Statements SINUS RHYTHM LOW QRS VOLTAGE IN PRECORDIAL LEADS [QRS DEFLECTION < 1.0 mV IN CHEST LEADS] PATTERN CONSISTENT WITH PULMONARY DISEASE NONSPECIFIC T-WAVE ABNORMALITY Compared to ECG 09/26/2024 05:30:06 Low QRS voltage now present T-wave abnormality still present Electronically Signed On 11-10-2024 09:03:21 CDT by Tutu Duong M.D. [email or web address]
[2024-11-09 10:54] LABS: Hematocrit 37.9 % (36-47); Hemoglobin 12.20 g/dL (11.27-16.99); Mean Corpuscular HGB Conc 32.2 g/dL (30-55); Mean Corpuscular Hemoglobin 28.8 pg (27-33); Mean Corpuscular Volume 89.4 fl (85-98); Nucleated Red Blood Cells % 0 %; Platelet Count 269 10^3/cmm (157-399); Red Blood Count 4.24 10^6/uL (3.85-5.65); White Blood Count 10.83 10^3/uL (3.29-11.43)
--- NOTE | 2024-11-09 10:54 | W.ED.AMS ---
HPI - Altered Mental Status General: Chief Complaint: Altered Mental Status Stated Complaint: Sepsis Time Seen by Provider: 11/09/24 10:44 History of Present Illness: 78-year-old female presents to the emergency room they are concerned about a bladder infection. She has been altered. She has a history of dementia. She fell 2 days ago was not seen at that time outside of the long term where son is a physician came in the long term sutured small laceration along the lateral portion of her left supraorbital ridge across her pentecostalism she has some bruising there now as well. She is on Eliquis. She is unresponsive to verbal stimuli has some slight response to painful stimuli. Low-grade fever on presentation. Related Data Home Medications ?Medication ?Instructions ?Recorded ?Confirmed sulfasalazine 500 mg 0.5 g PO QAM 01/10/21 11/09/24 tablet,delayed release cholecalciferol (vitamin D3) 125 125 mcg PO QAM 01/09/23 11/09/24 mcg (5,000 unit) capsule acetaminophen 325 mg tablet 325 - 650 mg PO Q6H PRN pain or 06/29/23 11/09/24 fever biotin 3,000 mcg-silicon dioxide 1 tab PO QAM 06/29/23 11/09/24 100 mg-R-rldbmbzq 50 mg tablet ER ([place] Matrix Plus) dslpznjttjsixiyjsoxiod-lzgroltw-gexkarey 1 - 2 drp ophthalmic (eye) Q2H PRN 06/29/23 11/09/24 80 0.5 %-1 %-0.5 % eye drops Dry Eyes (Refresh Digital) estradiol 0.01% (0.1 mg/gram) See Rx Instructions .Route .COMPLEX 06/29/23 11/09/24 vaginal cream loperamide 2 mg capsule 4 mg PO BID PRN Diarrhea 06/29/23 11/09/24 ibuprofen 400 mg tablet 400 mg PO Q6H PRN Pain 07/10/23 11/09/24 citalopram 10 mg tablet 10 mg PO BID 09/26/24 11/09/24 hydroxyzine HCl 25 mg tablet 25 mg PO TID PRN Allergy Symptoms 09/26/24 11/09/24 lamotrigine 25 mg tablet 25 mg PO BID 09/26/24 11/09/24 meloxicam 7.5 mg tablet 7.5 mg PO QAM 09/26/24 11/09/24 atorvastatin 40 mg tablet (Lipitor) 40 mg PO QPM 11/09/24 11/09/24 cyanocobalamin (vitamin B-12) 500 500 mcg PO DAILY 11/09/24 11/09/24 mcg tablet (Vitamin B-12) magnesium hydroxide 400 mg/5 mL 30 ml PO DAILY PRN Constipation 11/09/24 11/09/24 oral suspension (Milk of Magnesia) memantine 5 mg tablet 5 mg PO BID 11/09/24 11/09/24 metoprolol succinate 25 mg 25 mg PO QAM 11/09/24 11/09/24 tablet,extended release 24 hr risperidone 1 mg tablet 1 mg PO BEDTIME 11/09/24 11/09/24 zaleplon 10 mg capsule 10 mg PO BEDTIME 11/09/24 11/09/24 Previous Rx's ?Medication ?Instructions ?Recorded aspirin 81 mg tablet,delayed 81 mg PO DAILY #30 tabs 09/26/24 release Allergies Allergy/AdvReac Type Severity Reaction Status Date / Time pseudoephedrine Allergy Intermediate ADR/ALGY-Hy Verified 11/03/24 11:08 potension Review of Systems General: Reports: ROS unobtainable due to medical condition PFSH ED PFSH: Medical History Narcolepsy without cataplexy Peripheral arterial disease Onychodystrophy Cervical dystonia Social History Smoking and tobacco/nicotine status: never used tobacco/nicotine Physical Exam HENMT: COMMON NORMALS: normocephalic, atraumatic and hearing grossly normal bilaterally HEAD & SCALP: normocephalic and atraumatic Resp: COMMON NORMALS: normal respiratory effort, No retractions, No use of accessory muscles and clear to auscultation bilaterally AUSCULTATION: clear to auscultation bilaterally Cardio: COMMON NORMALS: regular rate, regular rhythm and No murmurs present (Cardio) RATE: regular rate RHYTHM: regular rhythm GI: COMMON NORMALS: Soft to palpation and No hepatosplenomegaly present AUSCULTATION: Yes normoactive bowel sounds PALPATION: Yes Soft to palpation, No Tenderness to palpation present (GI), No Guarding due to palpation present (GI) and Yes No hepatosplenomegaly present Extremity: COMMON NORMALS: normal to inspection, capillary refill normal, no clubbing, cyanosis or edema, no calf tenderness and no pedal edema Skin: COMMON NORMALS: no rashes or lesions noted GENERAL SKIN EXAM: no rashes or lesions noted Course Vital Signs: Vital signs: Vital Signs Temperature 98.2 F 11/09/24 16:00 Pulse Rate 60 11/09/24 16:00 Respiratory Rate 18 11/09/24 16:00 Blood Pressure 185/76 11/09/24 16:00 Pulse Oximetry 96 11/09/24 16:00 Oxygen Delivery Me thod Nasal Cannula 11/09/24 14:59 MDM - Altered Mental Status Medical Decision Making Patient later did wake up become more interactive when she initially arrived she was only responding vaguely to noxious stimuli. Will place her on observation she had fallen to days ago CT of her head was negative. No signs of bladder infection CBC normal chemistry panel. Discussed with hospitalist angie for encephalopathy. Medical Records I reviewed the patient's medical records. Lab Data I reviewed the patient's lab results. 11/09/24 10:44 11/09/24 10:44 Radiology Impressions Chest X-Ray 11/09/24 10:45 IMPRESSION: No acute findings. Head CT 11/09/24 10:47 IMPRESSION: 1. No acute intracranial hemorrhage or edema. 2. No skull fracture. 3. Symmetric cerebral and cerebellar atrophy and small vessel disease. 4. Prior LEFT thalamic lacunar infarct. Laboratory Results WBC 10.83 10^3/uL (3.29-11.43) 11/09/24 10:44 RBC 4.24 10^6/uL (3.85-5.65) 11/09/24 10:44 Hgb 12.20 g/dL (11.27-16.99) 11/09/24 10:44 Hct 37.9 % (36-47) 11/09/24 10:44 MCV 89.4 fl (85-98) 11/09/24 10:44 MCH 28.8 pg (27-33) 11/09/24 10:44 MCHC 32.2 g/dL (30-55) 11/09/24 10:44 RDW 14.2 % (12.1-15.1) 11/09/24 10:44 Plt Count 269 10^3/cmm (157-399) 11/09/24 10:44 MPV 9.4 fL (7.4-10.4) 11/09/24 10:44 Neut % (Auto) 68.0 % 11/09/24 10:44 Lymph % (Auto) 21.6 % 11/09/24 10:44 Rooks % (Auto) 8.6 % 11/09/24 10:44 Eos % (Auto) 1.0 % 11/09/24 10:44 Baso % (Auto) 0.5 % 11/09/24 10:44 Neut # (Auto) 7.37 10^3/uL (1.8-7.7) 11/09/24 10:44 Lymph # (Auto) 2.3 10^3/uL (0.8-4.8) 11/09/24 10:44 Rooks # (Auto) 0.9 10^3/uL (0.2-0.9) 11/09/24 10:44 Eos # (Auto) 0.1 10^3/uL (0.0-0.8) 11/09/24 10:44 Baso # (Auto) 0.1 10^3/uL (0.0-0.1) 11/09/24 10:44 Nucleated RBC % (auto) 0 % 11/09/24 10:44 Nucleated RBCs # 0.0 /100WBC 11/09/24 10:44 Sodium 139 mmol/L (136-145) 11/09/24 10:44 Potassium 3.8 mmol/L (3.5-5.1) 11/09/24 10:44 Chloride 102 mmol/L (98-107) 11/09/24 10:44 Carbon Dioxide 23 mmol/L (22-29) 11/09/24 10:44 Anion Gap 17.8 (5-19) 11/09/24 10:44 BUN 18 mg/dL (8-23) 11/09/24 10:44 Creatinine 0.7 mg/dL (0.5-0.9) 11/09/24 10:44 GFR Calculation Not Reportable 11/09/24 10:44 Glucose 99 mg/dL (65-115) 11/09/24 10:44 Calculated Osmolality 290 mOsm/kg (285-295) 11/09/24 10:44 Lactic Acid 1.1 mmol/L (0.5-2.2) 11/09/24 10:44 Calcium 9.5 mg/dL (8.5-10.5) 11/09/24 10:44 Total Bilirubin 0.8 mg/dL (0.15-1.2) 11/09/24 10:44 AST 12 U/L (0-32) 11/09/24 10:44 ALT 14 U/L (0-33) 11/09/24 10:44 Alkaline Phosphatase 67 U/L (35-105) 11/09/24 10:44 Total Protein 6.5 g/dL (6.6-8.7) L 11/09/24 10:44 Albumin 3.9 g/dL (3.5-5.2) 11/09/24 10:44 Globulin 2.6 g/dL (1.3-4.6) 11/09/24 10:44 Lipase 21 U/L (13-60) 11/09/24 10:44 Urine Color Yellow (Yellow) 11/09/24 12:10 Urine Appearance Clear (CLEAR) 11/09/24 12:10 Urine pH 6.5 (5-7) 11/09/24 12:10 Ur Specific Buckner 1.020 (1.005-1.030) 11/09/24 12:10 Urine Protein Negative (Negative) 11/09/24 12:10 Urine Glucose (UA) Negative (Normal) 11/09/24 12:10 Urine Ketones Negative (Negative) 11/09/24 12:10 Urine Blood Negative (Negative) 11/09/24 12:10 Urine Nitrate Negative (Negative) 11/09/24 12:10 Urine Bilirubin Negative (Negative) 11/09/24 12:10 Urine Urobilinogen 1.0 mg/dL (Negative) 11/09/24 12:10 Ur Leukocyte Esterase Negative (Negative) 11/09/24 12:10 Urine RBC 0-2 /hpf (0-2) 11/09/24 12:10 Urine WBC 0-5 /hpf (0-5) 11/09/24 12:10 Ur Squamous Epith Cells 0-5 /hpf (0-5) 11/09/24 12:10 Ur Renal Epithelial Cell 5-10 /hpf 11/09/24 12:10 Amorphous Sediment Not Reportable 11/09/24 12:10 Urine Bacteria None seen /hpf (NONE) 11/09/24 12:10 Hyaline Casts 2.05 /lpf 11/09/24 12:10 Ur Oval Fat Bodies Trace /hpf 11/09/24 12:10 Influenza A (PCR) Negative (Negative) 11/09/24 10:49 Influenza Type B (PCR) Negative (Negative) 11/09/24 10:49 RSV (PCR) Negative (Negative) 11/09/24 10:49 SARS-CoV-2 (PCR) Negative (Negative) 11/09/24 10:49 All radiology interpretation(s) finalized by discharge Discharge Plan Discharge Patient Disposition: Admitted As Inpatient Admit Provider: Michelle Gómez Clinical Impression: Acute encephalopathy, Alzheimer disease Condition: Stable Coding Level of Care Code ED Insurance Agents Supervisor for Jose Rafael Mitchell
--- OUTSIDE RECORDS SUMMARY | 2024-11-09 11:00 | XMS_ITS | Patient Health Record ---
Author Organization [facility] Address [address] [place] [address] Care Team Providers Care Dental Coordinator Name Role Phone Bre Coto Unavailable [phone] Reason For Referral No Information Medications Medication SIG (Take, Route, Frequency, Duration) Notes Start Date End Date Status Vivelle 0.05mg Transdermal Patch apply patch 2 x q week as directed for 30 ([facility] 07/04/2009 Active Vagifem 25mcg Vaginal Tablets Insert 1 vaginal tablet(s) in vagina 2 times weekly for 30 ([facility]) 07/04/2009 Active Lactulose 10gm/15ml Syrup take 1 ounce qd for 30 ([facility]) 0 07/04/2009 Active Crestor 20mg Tablet Take 1 tablet(s) by mouth daily for 30 ([facility]) 07/04/2009 Active Plan Of Treatment No Information Insurance Providers Payer Name Payer Address Payer Phone Subscriber Number Group Number Insured Name Patient Relationship to Insured Coverage Start Date Coverage End Date [facility] [address] [place] [address] [id number] Natalia Self - patient is the insured
--- OUTSIDE RECORDS SUMMARY | 2024-11-09 11:00 | XMS_ITS | Patient Health Record ---
Author Organization [facility] Address [address] [place] [address] Care Team Providers Care Peanut Grader Name Role Phone Nancie Kenny MD Primary Care Provider UnavailKatlin Ventura Unavailable [phone] Allergies Allergen (clinical drug ingredient) Drug/Non Drug Allergy documented on EMR Reaction Allergy Type Onset Date Status Sudafed Unknown Drug Allergy Active Reason For Referral No Information Medications Medication SIG (Take, Route, Fr equency, Duration) Notes Start Date End Date Status sulfaSALAzine Active Terbinafine Active Rivastigmine Active Lexapro 10 MG Tablet 1 tablet Orally Once a day Active Social History Tobacco Use: Social History Observation Description Date Details (start date - stop date) Never Smoker NA - NA Social History Tobacco Use: Social Info Question Answer Notes xTobacco Use/Smoking Are you a nonsmoker Problems Problem Type SNOMED Code ICD Code Onset Dates Problem Status W/U Status Risk Notes Problem Unspecified dementia, severe, with psychotic disturbance (F03.C2) Active confirmed Problem Unspecified dementia, severe, with other behavioral disturbance (F03.C18) Active confirmed Problem Dementia with behavioral disturbance (disorder) (6762618280993) Unspecified dementia, unspecified severity, with other behavioral disturbance (F03.918) Active confirmed Problem History of chronic cystitis (Z87.448) Active confirmed Problem Mixed incontinence (265997167) Mixed incontinence urge and stress (N39.46) Active confirmed Problem Overactive urinary bladder (disorder) (598239240) OAB (overactive bladder) (N32.81) Active confirmed Problem Adult failure to thrive syndrome (655930643) Failure to thrive in adult (R62.7) Active confirmed Problem Insomnia (398623842) Insomnia (G47.00) Active confirmed Problem Anxiety (29908949) Anxiety (F41.9) Active confirmed Problem Female urinary stress incontinence (73015282) ANCA (stress urinary incontinence, female) (N39.3) Active confirmed Problem Urge incontinence of urine (10909499) Urge incontinence (N39.41) Active confirmed Problem Adjustment disorder with mixed disturbance of emotions AND conduct (67594042) Adjustment disorder with mixed disturbance of emotions and conduct (F43.25) Active confirmed Plan Of Treatment No Information Insurance Providers Payer Name Payer Address Payer Phone Subscriber Number Group Number Insured Name Patient Relationship to Insured Coverage Start Date Coverage End Date [place] Medicare [address] [place] [phone] [id number] Natalia Jackson Self - patient is the insured [facility] [address] [place] [address] [phone] [id number] Natalia Jackson Self - patient is the insured Medical (General) History Medical History History ICD Code bronchitis Hemorrhoids back trouble Bladder infections Arthritis dementia Surgical History Surgery Date(Month/Year) Hysterectomy prolapse bladder/rectum procedure
[2024-11-09 11:18] LABS: Alanine Aminotransferase 14 U/L (0-33); Albumin Level 3.9 g/dL (3.5-5.2); Alkaline Phosphatase 67 U/L (35-105); Anion Gap 17.8 (5-19); Aspartate Amino Transferase 12 U/L (0-32); Blood Urea Nitrogen 18 mg/dL (8-23); Calcium 9.5 mg/dL (8.5-10.5); Carbon Dioxide 23 mmol/L (22-29); Chloride 102 mmol/L (98-107); Creatinine Clr Calc Pharmacy 50.3503; Globulin 2.6 g/dL (1.3-4.6); Glucose 99 mg/dL (65-115); Lipase 21 U/L (13-60); Osmolality Calculated 290 mOsm/kg (285-295); Potassium 3.8 mmol/L (3.5-5.1); Sodium 139 mmol/L (136-145); Total Protein 6.5 g/dL (6.6-8.7)
[2024-11-09 11:19] LABS: Lactic Sepsis W/Reflex 1.1 mmol/L (0.5-2.2)
[2024-11-09 11:32] LABS: Respiratory Syncytial Virus Ce NEGATIVE (Negative); SARS-CoV-2 PCR NEGATIVE (Negative)
[2024-11-09 12:27] LABS: Glucose Urine UA Negative (Normal); Nitrate Urine Negative (Negative); Specific Gravity, Urine 1.020 (1.005-1.030)
[2024-11-09 12:30] LABS: Add Urine Microscopic? YES
--- NOTE | 2024-11-09 12:38 | PC.PHAR ---
Pt is from [place]
[2024-11-09 13:07] LABS: UA Slide Review UA Slide Review Perf
[2024-11-09 13:10] LABS: Oval Fat Bodies Urine TRACE /hpf
--- NOTE | 2024-11-09 18:12 | PM.HP ---
Providers/Chief Complaint Admitting Physician: Michelle Gómez MD Primary Care Provider: Jose Luis Shah MD Chief Complaint: Sepsis History of Present Illness Natalia Jackson is a 78 year old female with medical history significant for dementia. [facility] and apparently had a mechanical fall 2 days prior to presentation today. Patient presented because of diminished level of consciousness. In the emergency room patient was not able to react and presented essentially with obtundation. And this was the initial report given to me by the emergency room attending. As I make my way to the emergency room to see the patient, patient brightened up and awake more as she saw the the nivgjpiz-rt-ijn and her son. She was now awake and alert and looked totally different from the report I got. The son is the only child CT done in the emergency room where unremarkable for any acute process in the cranium. Because of the initial presentation with obtundation I admitted the patient to stepdown unit for close monitoring and to proceed to get an MRI in the morning. If this study is fine and nothing happened overnight then patient can go home. Patient is admitted for observation patient walks at baseline with walker and sometimes independently but does now have some shuffling gait stooping over. Review of Systems Narrative: System review upon 10 organ review we are noted to be unremarkable except for diminished level of consciousness with obtundation at presentation to the emergency room significant for RECREATIONAL THERAPIST changes that is transitory Medications/Allergies Home Medications ?Medication ?Instructions ?Recorded ?Confirmed ?Last Taken ?Type sulfasalazine 500 mg 0.5 g PO QAM 01/10/21 11/09/24 11/09/24 History tablet,delayed release cholecalciferol (vitamin D3) 125 125 mcg PO QAM 01/09/23 11/09/24 11/09/24 History mcg (5,000 unit) capsule acetaminophen 325 mg tablet 325 - 650 mg PO Q6H PRN pain or 06/29/23 11/09/24 10/27/24 History fever biotin 3,000 mcg-silicon dioxide 1 tab PO QAM 06/29/23 11/09/24 11/09/24 History 100 xc-C-bhhmwnow 50 mg tablet ER ([place] Matrix Plus) jqdyzpbzyabqpindxfldle-fqncaiwp-solvqofe 1 - 2 drp ophthalmic (eye) Q2H PRN 06/29/23 11/09/24 06/16/23 History 80 0.5 %-1 %-0.5 % eye drops Dry Eyes (Refresh Digital) estradiol 0.01% (0.1 mg/gram) See Rx Instructions .Route .COMPLEX 06/29/23 11/09/24 11/03/24 History vaginal cream loperamide 2 mg capsule 4 mg PO BID PRN Diarrhea 06/29/23 11/09/24 Unknown History ibuprofen 400 mg tablet 400 mg PO Q6H PRN Pain 07/10/23 11/09/24 09/25/24 History aspirin 81 mg tablet,delayed 81 mg PO DAILY #30 tabs 09/26/24 11/09/24 11/09/24 Rx release citalopram 10 mg tablet 10 mg PO BID 09/26/24 11/09/24 11/09/24 History hydroxyzine HCl 25 mg tablet 25 mg PO TID PRN Allergy Symptoms 09/26/24 11/09/24 10/23/24 History lamotrigine 25 mg tablet 25 mg PO BID 09/26/24 11/09/24 11/09/24 History meloxicam 7.5 mg tablet 7.5 mg PO QAM 09/26/24 11/09/24 11/09/24 History atorvastatin 40 mg tablet (Lipitor) 40 mg PO QPM 11/09/24 11/09/24 11/08/24 History cyanocobalamin (vitamin B-12) 500 500 mcg PO DAILY 11/09/24 11/09/24 11/09/24 History mcg tablet (Vitamin B-12) magnesium hydroxide 400 mg/5 mL 30 ml PO DAILY PRN Constipation 11/09/24 11/09/24 10/29/24 History oral suspension (Milk of Magnesia) memantine 5 mg tablet 5 mg PO BID 11/09/24 11/09/24 11/09/24 History metoprolol succinate 25 mg 25 mg PO QAM 11/09/24 11/09/24 11/09/24 History tablet,extended release 24 hr risperidone 1 mg tablet 1 mg PO BEDTIME 11/09/24 11/09/24 11/08/24 History zaleplon 10 mg capsule 10 mg PO BEDTIME 11/09/24 11/09/24 11/08/24 History Allergies Allergy/AdvReac Type Severity Reaction Status Date / Time pseudoephedrine Allergy Intermediate ADR/ALGY-Hy Verified 11/03/24 11:08 potension PFSH Acute PFSH: Medical History (Updated 11/09/24 @ 18:09 by Michelle Gómez MD) Narcolepsy without cataplexy Peripheral arterial disease Onychodystrophy Cervical dystonia Social History Smoking and tobacco/nicotine status: never used tobacco/nicotine Vitals/I&O/Wt Last Vital Signs Temp 98.2 F 11/09/24 16:00 Pulse 60 11/09/24 16:00 Resp 18 11/09/24 16:00 BP 185/76 11/09/24 16:00 Pulse Ox 96 11/09/24 16:00 O2 Del Method Nasal Cannula 11/09/24 14:59 Weight last 48 hrs Weight 65.589 kg Weight 61.235 kg Physical Exam Narrative: Generally patient is awake alert. Has poverty of thoughts Son is at the bedside patient has left side of bed to ecchymosis from the fall HEENT positive left orbital ecchymosis from fall Neck neck is supple Cardiovascular heart rate is regular Lungs are clear Abdomen soft nontender nondistended unremarkable Extremities are intact Neurology has no focality except for cognitive impairment that is not new patient does have poverty of thought from dementia Data 11/09/24 10:44 11/09/24 10:44 Micro: Microbiology 11/09/24 11:22 Blood Culture - Preliminary Blood SPECIMEN COLLECTED 11/09/24 11:20 Blood Culture - Preliminary Blood SPECIMEN COLLECTED A&P Assessment and plan 1. Concussion: [place] patient has concussion with effect of diminished mental status to and obtundation These appear to be transitory as patient is more alert awake CT is negative and this has been 48 hours after the event of 4 - Will obtain MRI for more clarity -Patient for MRI in the morning and if all things are equal patient then will be discharged under observation. 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 TIA (transient ischemic attack): Patient had had history of TIA nothing new at this time we will follow through with MRI in the morning. 4. Acute encephalopathy: Patient not actively had acute encephalopathy status post a fall 1940 8 hours ago. Will further investigate with MRI of the brain. 5. Alzheimer disease: Patient does have history of Alzheimer's for years now and patient its only getting worse with ambulation and cognitive impairment according to the son and the lzfvffsc-tx-eup PDMP PDMP Reviewed: Not Reviewed Attestations Medical Necessity Statement*: Patient who has been having some confusion and change in mental status of the baseline for the past 48 hours post fall patient had concussion and presentation in the emergency room with near obtundation rule by this patient at least an observation stay for 23 hours to discharge in the morning if all things are able Coding Level of Care Code 53757 Diagnoses Concussion S06.0XAA Neurologic gait disorder R26.9 TIA (transient ischemic attack) G45.9 Acute encephalopathy G93.40 Alzheimer disease G30.9; F02.80 Time Spent (min) 45
[2024-11-09] MEDS: heparin 5,000 unit/mL INJ 1 mL 5000 UNIT SUBCUT (21:47)
[2024-11-10] VITALS: BP 149/64; PULSE 61; RESP 19; TEMP 36.9; O2SAT 92
[2024-11-10 04:00] VITALS: BP 168/81; PULSE 63; RESP 16; TEMP 36.7; O2SAT 94
[2024-11-10 04:11] LABS: Hematocrit 37.1 % (36-47); Hemoglobin 11.90 g/dL (11.27-16.99); Mean Corpuscular HGB Conc 32.1 g/dL (30-55); Mean Corpuscular Hemoglobin 29.0 pg (27-33); Mean Corpuscular Volume 90.3 fl (85-98); Nucleated Red Blood Cells % 0 %; Platelet Count 243 10^3/cmm (157-399); Red Blood Count 4.11 10^6/uL (3.85-5.65); White Blood Count 8.71 10^3/uL (3.29-11.43)
[2024-11-10 04:31] LABS: Alanine Aminotransferase 11 U/L (0-33); Albumin Level 3.4 g/dL (3.5-5.2); Alkaline Phosphatase 61 U/L (35-105); Anion Gap 15.8 (5-19); Aspartate Amino Transferase 11 U/L (0-32); Blood Urea Nitrogen 13 mg/dL (8-23); Calcium 9.1 mg/dL (8.5-10.5); Carbon Dioxide 23 mmol/L (22-29); Chloride 105 mmol/L (98-107); Creatinine Clr Calc Pharmacy 51.9181; Globulin 2.4 g/dL (1.3-4.6); Glucose 79 mg/dL (65-115); Magnesium 2.1 mg/dL (1.7-2.3); Osmolality Calculated 289 mOsm/kg (285-295); Potassium 3.8 mmol/L (3.5-5.1); Sodium 140 mmol/L (136-145); Total Protein 5.8 g/dL (6.6-8.7)
[2024-11-10 06:00] VITALS: BMI 25.5
[2024-11-10] MEDS: metoprolol succinate ER (24 HR) 25 mg Tablet PO (06:11)
[2024-11-10] MEDS: heparin 5,000 unit/mL INJ 1 mL 5000 UNIT SUBCUT ×2 (06:11→17:23)
[2024-11-10 07:53] VITALS: BP 160/76; PULSE 60; RESP 17; TEMP 37.2; O2SAT 94
[2024-11-10 12:00] VITALS: BP 110/70; PULSE 64; RESP 21; TEMP 36.6; O2SAT 96
--- NOTE | 2024-11-10 13:49 | PM.DCS ---
Discharge Providers Date of Admission: 11/09/24 13:13 Date of Discharge: November 10, 2024 Attending Provider at Admission: Michelle Gómez MD Attending Provider at Discharge: Michelle Gómez MD Consults: None Primary Care Provider: Jose Luis Shah MD Diagnoses at Discharge Discharge Diagnosis 1. Concussion: 2. Neurologic gait disorder: 3. TIA (transient ischemic attack): 4. Acute encephalopathy: 5. Alzheimer disease: Reason for Visit Reason for Visit: Sepsis Brief History: Concussion status post fall 48 hours prior to presentation with obtundation Hospital Course Hospital Course Natalia Jackson is a 78 year old female with medical history significant for dementia. Patient lives in the custodial and apparently had a mechanical fall 2 days prior to presentation today. Patient presented because of diminished level of consciousness. In the emergency room patient was not able to react and presented essentially with obtundation. And this was the initial report given to me by the emergency room attending. As I make my way to the emergency room to see the patient, patient brightened up and awake more as she saw the the [id number] and her son. She was now awake and alert and looked totally different from the report I got. The son is the only child CT done in the emergency room where unremarkable for any acute process in the cranium. Because of the initial presentation with obtundation I admitted the patient to stepdown unit for close monitoring and to proceed to get an MRI in the morning. If this study is fine and nothing happened overnight then patient can go home. Patient is admitted for observation patient walks at baseline with walker and sometimes independently but does now have some shuffling gait stooping over. Patient is hemodynamically stable very cheerful this morning on rounds and had slept well during the night and denies any complaints. Case discussed with the patient that MRI needed to be done before she leaves to go back to the custodial. Patient said is all okay we are waiting for the family to sign for authorization to do this Patient is pending MRI of the brain today once this is done and is negative patient can return back to the custodial Physical Exam Narrative: Generally patient is in no apparent distress HEENT normocephalic atraumatic neck neck is supple cardiovascular heart rate is regular lungs are pretty much clear. Abdomen soft nontender nondistended unremarkable extremities are intact no edema has good pulses neurology has no focality lab studies lab studies reviewed and noted Discharge Data Studies Completed and Pending Completed Studies During Hospitalization Category Date Time Status CT head wo con* [id number] Stat Cat Scan 11/09/24 10:47 Completed XR chest 1V portable [id number] Stat Exams 11/09/24 10:45 Completed Pending at discharge Category Date Time Status Blood Culture Stat Lab 11/09/24 11:22 Results MR head wo con* [id number] Routine MRI 11/10/24 18:42 Ordered Radiology Impressions Chest X-Ray 11/09/24 10:45 IMPRESSION: No acute findings. Head CT 11/09/24 10:47 IMPRESSION: 1. No acute intracranial hemorrhage or edema. 2. No skull fracture. 3. Symmetric cerebral and cerebellar atrophy and small vessel disease. 4. Prior LEFT thalamic lacunar infarct. Laboratory Results WBC 8.71 10^3/uL (3.29-11.43) 11/10/24 03:55 RBC 4.11 10^6/uL (3.85-5.65) 11/10/24 03:55 Hgb 11.90 g/dL (11.27-16.99) 11/10/24 03:55 Hct 37.1 % (36-47) 11/10/24 03:55 MCV 90.3 fl (85-98) 11/10/24 03:55 MCH 29.0 pg (27-33) 11/10/24 03:55 MCHC 32.1 g/dL (30-55) 11/10/24 03:55 RDW 14.1 % (12.1-15.1) 11/10/24 03:55 Plt Count 243 10^3/cmm (157-399) 11/10/24 03:55 MPV 9.3 fL (7.4-10.4) 11/10/24 03:55 Neut % (Auto) 61.9 % 11/10/24 03:55 Lymph % (Auto) 25.5 % 11/10/24 03:55 [place] % (Auto) 9.0 % 11/10/24 03:55 Eos % (Auto) 2.8 % 11/10/24 03:55 Baso % (Auto) 0.6 % 11/10/24 03:55 Neut # (Auto) 5.40 10^3/uL (1.8-7.7) 11/10/24 03:55 Lymph # (Auto) 2.2 10^3/uL (0.8-4.8) 11/10/24 03:55 [place] # (Auto) 0.8 10^3/uL (0.2-0.9) 11/10/24 03:55 Eos # (Auto) 0.2 10^3/uL (0.0-0.8) 11/10/24 03:55 Baso # (Auto) 0.1 10^3/uL (0.0-0.1) 11/10/24 03:55 Nucleated RBC % (auto) 0 % 11/10/24 03:55 Nucleated RBCs # 0.0 /100WBC 11/10/24 03:55 Sodium 140 mmol/L (136-145) 11/10/24 03:55 Potassium 3.8 mmol/L (3.5-5.1) 11/10/24 03:55 Chloride 105 mmol/L (98-107) 11/10/24 03:55 Carbon Dioxide 23 mmol/L (22-29) 11/10/24 03:55 Anion Gap 15.8 (5-19) 11/10/24 03:55 BUN 13 mg/dL (8-23) 11/10/24 03:55 Creatinine 0.6 mg/dL (0.5-0.9) 11/10/24 03:55 GFR Calculation Not Reportable 11/10/24 03:55 Glucose 79 mg/dL (65-115) 11/10/24 03:55 Calculated Osmolality 289 mOsm/kg (285-295) 11/10/24 03:55 Lactic Acid 1.1 mmol/L (0.5-2.2) 11/09/24 10:44 Calcium 9.1 mg/dL (8.5-10.5) 11/10/24 03:55 Phosphorus 2.9 mg/dL (2.5-4.5) 11/10/24 03:55 Magnesium 2.1 mg/dL (1.7-2.3) 11/10/24 03:55 Total Bilirubin 0.9 mg/dL (0.15-1.2) 11/10/24 03:55 AST 11 U/L (0-32) 11/10/24 03:55 ALT 11 U/L (0-33) 11/10/24 03:55 Alkaline Phosphatase 61 U/L (35-105) 11/10/24 03:55 Total Protein 5.8 g/dL (6.6-8.7) L 11/10/24 03:55 Albumin 3.4 g/dL (3.5-5.2) L 11/10/24 03:55 Globulin 2.4 g/dL (1.3-4.6) 11/10/24 03:55 Lipase 21 U/L (13-60) 11/09/24 10:44 Urine Color Yellow (Yellow) 11/09/24 12:10 Urine Appearance Clear (CLEAR) 11/09/24 12:10 Urine pH 6.5 (5-7) 11/09/24 12:10 Ur Specific [place] 1.020 (1.005-1.030) 11/09/24 12:10 Urine Protein Negative (Negative) 11/09/24 12:10 Urine Glucose (UA) Negative (Normal) 11/09/24 12:10 Urine Ketones Negative (Negative) 11/09/24 12:10 Urine Blood Negative (Negative) 11/09/24 12:10 Urine Nitrate Negative (Negative) 11/09/24 12:10 Urine Bilirubin Negative (Negative) 11/09/24 12:10 Urine Urobilinogen 1.0 mg/dL (Negative) 11/09/24 12:10 Ur Leukocyte Esterase Negative (Negative) 11/09/24 12:10 Urine RBC 0-2 /hpf (0-2) 11/09/24 12:10 Urine WBC 0-5 /hpf (0-5) 11/09/24 12:10 Ur Squamous Epith Cells 0-5 /hpf (0-5) 11/09/24 12:10 Ur Renal Epithelial Cell 5-10 /hpf 11/09/24 12:10 Amorphous Sediment Not Reportable 11/09/24 12:10 Urine Bacteria None seen /hpf (NONE) 11/09/24 12:10 Hyaline Casts 2.05 /lpf 11/09/24 12:10 Ur Oval Fat Bodies Trace /hpf 11/09/24 12:10 Influenza A (PCR) Negative (Negative) 11/09/24 10:49 Influenza Type B (PCR) Negative (Negative) 11/09/24 10:49 RSV (PCR) Negative (Negative) 11/09/24 10:49 SARS-CoV-2 (PCR) Negative (Negative) 11/09/24 10:49 Vitals Last Vital Signs Temp 97.9 F 11/10/24 12:00 Pulse 64 11/10/24 12:00 Resp 21 H 11/10/24 12:00 BP 110/70 11/10/24 12:00 Pulse Ox 96 11/10/24 12:00 O2 Del Method Room Air 11/10/24 04:00 Discharge Plan Discharge Patient Disposition: Xfer SNF Condition: Stable Prescriptions: Continued sulfasalazine 500 mg tablet,delayed release (DR/EC) 0.5 g PO QAM cholecalciferol (vitamin D3) 125 mcg (5,000 unit) Capsule 125 mcg PO QAM aspirin 81 mg tablet,delayed release (DR/EC) 81 mg PO DAILY Qty: 30 0RF citalopram 10 mg tablet 10 mg PO BID lamotrigine 25 mg tablet 25 mg PO BID meloxicam 7.5 mg tablet 7.5 mg PO QAM hydroxyzine HCl 25 mg tablet 25 mg PO TID PRN (Reason: Allergy Symptoms) magnesium hydroxide [Milk of Magnesia] 400 mg/5 mL Suspension 30 ml PO DAILY PRN (Reason: Constipation) metoprolol succinate 25 mg tablet extended release 24 hr 25 mg PO QAM risperidone 1 mg tablet 1 mg PO BEDTIME memantine 5 mg tablet 5 mg PO BID atorvastatin [Lipitor] 40 mg tablet 40 mg PO QPM cyanocobalamin (vitamin B-12) [Vitamin B-12] 500 mcg Tablet 500 mcg PO DAILY zaleplon 10 mg capsule 10 mg PO BEDTIME [place] Matrix Plus 3,000 mcg -100 mg-50 mg Tablet Extended Release 1 tab PO QAM acetaminophen 325 mg Tablet 325 - 650 mg PO Q6H PRN (Reason: pain or fever) loperamide 2 mg capsule 4 mg PO BID PRN (Reason: Diarrhea) estradiol 0.01 % (0.1 mg/gram) cream See Rx Instructions .ROUTE .COMPLEX Rx Instructions: INSERT 1/2 GRAM VAGINALLY TWICE A WEEK FOR VAGINAL ATROPHY. 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 for DC: Hospitalist Referrals: Crase,Jose Luis A, MD [Primary Care Provider, [facility]] Patient Instructions: Transient Ischemic Attack (DC), Concussion (DC), Altered Mental Status (ED), Encephalopathy (DC), Opioid Safety, Patient Portal & Liliya Instructions Discharge Attestations Time Spent in Discharge Care*: less than 30 min Quality Metrics Clinical Quality Measures [ No reported AMI, CVA or VTE this stay] Coding Level of Care Code 88471 Diagnoses Concussion S06.0XAA Neurologic gait disorder R26.9 TIA (transient ischemic attack) G45.9 Acute encephalopathy G93.40 Alzheimer disease G30.9; F02.80 Time Spent (min) 30
--- OUTSIDE RECORDS SUMMARY | 2024-11-10 15:46 | XMS_ITS | Patient Health Record ---
Author Organization [facility] Address [address] [place] [address] Care Team Providers Care Oil Spraying Machine Operator Name Role Phone Efraín SHEETS, Nancie Primary Care Provider UnavailKatlin Ventura Unavailable [phone] Allergies Allergen (clinical drug ingredient) Drug/Non Drug [...] Problem Status W/U Status Risk Notes Problem Adjustment disorder with mixed disturbance of emotions AND conduct (38767268) Adjustment disorder with mixed disturbance of emotions and conduct (F43.25) Active confirmed Problem Urge incontinence of urine (82892291) Urge incontinence (N39.41) Active confirmed Problem Female urinary stress incontinence (41394361) ANCA (stress urinary incontinence, female) (N39.3) Active confirmed Problem Anxiety (81023055) Anxiety (F41.9) Active confirmed Problem Insomnia (417744493) Insomnia (G47.00) Active confirmed Problem Adult failure to thrive syndrome (412652526) Failure to thrive in adult (R62.7) Active confirmed Problem Overactive urinary bladder (disorder) (818697047) OAB (overactive bladder) (N32.81) Active confirmed Problem Mixed incontinence (881169833) Mixed incontinence urge and stress (N39.46) Active confirmed Problem History of chronic cystitis (Z87.448) Active confirmed Problem Dementia with behavioral disturbance (disorder) (1203381181815) Unspecified dementia, unspecified severity, with other behavioral disturbance (F03.918) Active confirmed Problem Unspecified dementia, severe, with other behavioral disturbance (F03.C18) Active confirmed Problem Unspecified dementia, severe, with psychotic disturbance (F03.C2) Active confirmed Plan Of Treatment No Information Insurance Providers Payer Name Payer Address Payer Phone Subscriber Number Group Number Insured Name Patient Relationship to Insured Coverage Start Date Coverage End Date [place] [address] [place] [phone] [id number] Natalia Jackson Self - patient is the insured [place] [employer] [address] [place] [address] [id number] Natalia Jackson Self - patient is the insured Medical (General) History Medical History History ICD Code bronchitis Hemorrhoids back trouble Bladder infections Arthritis dementia Surgical History Surgery Date(Month/Year) prolapse bladder/rectum procedure Hysterectomy
--- OUTSIDE RECORDS SUMMARY | 2024-11-10 15:46 | XMS_ITS | Patient Health Record ---
Author Organization [facility] Address [address] [place] [address] Care Team Providers Care Circular Tank Cooper Name Role Phone Bre Coto Unavailable [phone] Reason For Referral No Information Medications Medication SIG (Take, Route, Frequency, Duration) Notes Start Date End Date Status Vivelle 0.05mg Transdermal Patch apply patch 2 x q week as directed for 30 ([facility]) 07/04/2009 Active Vagifem 25mcg Vaginal Tablets Insert [...] Insured Coverage Start Date Coverage End Date [facility] [address] [place] [address] [phone] [id number] [place] Natalia Self - patient is the insured
[2024-11-10 16:00] VITALS: BP 147/67; PULSE 83; RESP 23; O2SAT 96
[2024-11-10] MEDS: haloperidol inj 5 mg/mL INJ 1 mL 2 MG IM (17:45)
[2024-11-10] MEDS: LORazepam 1 MG/0.5 ML injection 0.5 MG IVP (17:46)
--- NOTE | 2024-11-10 18:42 | MR_ITS ---
WS: [id number] MRI HEAD WITHOUT CONTRAST TECHNIQUE: Sagittal T1, T2 axial, T2 axial FLAIR, axial and coronal T1 images, axial susceptibility weighted imaging, axial diffusion weighted images, and coronal T2 images were obtained. CLINICAL INFORMATION: Change in mental status status post 2 days of fall COMPARISON: MRI 2023 FINDINGS: Some images are patient motion. Fast protocol imaging was utilized in order to mitigate motion. No evidence of restricted diffusion to suggest acute ischemia. Ventricular system and basal cisterns are patent. Moderate small vessel changes. Moderate parenchymal volume loss. This is similar to previous. No hemosiderin on the susceptibly weighted images. Moderate to advanced symmetric atrophy temporal lobes hippocampal formations appear stable. Tiny chronic lacunar infarct LEFT thalamus. A few tiny chronic lacunar infarcts or prominent perivascular spaces in the LEFT basal ganglia. Normal vascular flow voids at the skull base. No extra-axial fluid collections. No evidence of mass or mass effect. Paranasal sinuses and mastoid air cells are well aerated. Normal posterior nasopharynx and parapharyngeal fat. MR/MR head wo con* [id number] IMPRESSION: 1. No evidence of restricted diffusion to suggest acute ischemia. 2. Moderate to advanced symmetric atrophy temporal lobes and hippocampal forma tions. 3. No hemosiderin. 4. Stable small chronic lacunar infarct LEFT thalamus. 5. Moderate small vessel changes with moderate parenchymal volume loss appears stable. 6. Small vessel changes in the arlene.
[2024-11-10 20:00] VITALS: BP 136/72; PULSE 88; RESP 19; TEMP 37; O2SAT 94
--- NOTE | 2024-11-10 22:26 | PC.NURSE ---
Family notified that patient will be transferred to 259[facility].
[2024-11-11] VITALS: BP 191/84; PULSE 72; RESP 16; TEMP 36.4; O2SAT 97
[2024-11-11 04:00] VITALS: BP 178/80; PULSE 74; RESP 16; TEMP 36.5; O2SAT 97
[2024-11-11] MEDS: metoprolol succinate ER (24 HR) 25 mg Tablet PO (06:00)
[2024-11-11] MEDS: heparin 5,000 unit/mL INJ 1 mL 5000 UNIT SUBCUT (06:00)
[2024-11-11 08:07] VITALS: BP 178/84; PULSE 73; RESP 16; TEMP 36.8; O2SAT 97
--- NOTE | 2024-11-11 11:25 | PC.OT ---
D/C from OT services at this time due to going on comfort care.
--- NOTE | 2024-11-11 12:22 | PC.NURSE ---
D/C pending delivery of medical equipment to [place].
[2024-11-11 12:35] VITALS: BP 110/56; PULSE 70; RESP 18; TEMP 36.9; O2SAT 93
--- NOTE | 2024-11-11 13:58 | PC.NURSE ---
this nurse called report at this time. mirian stiles refused to take report due to equipment not at facility. charge nurse aware .
[2024-11-11 14:04] VITALS: BP 110/56; PULSE 70; RESP 18; TEMP 36.9; O2SAT 93
== END 2024-11-11 14:06 | disposition hospice, home (50) ==
LOC: ER 11:02 → CSU 16:47 → ER IP 11-10 15:43 → CSU 11-10 17:16 → MEDSURG 11-10 22:28
PROVIDERS: Admitting Provider Internal Medicine; Emergency Provider Family Medicine; PCP Family Medicine; Visit Provider Internal Medicine
DX: S06.0XAA Concussion with loss of consciousness status unknown, initial encounter (principal); W19.XXXA Unspecified fall, initial encounter; R26.9 Unspecified abnormalities of gait and mobility; G45.9 Transient cerebral ischemic attack, unspecified; G93.40 Encephalopathy, unspecified; G30.9 Alzheimer's disease, unspecified; F02.80 Dementia in other diseases classified elsewhere, unspecified severity, without behavioral disturbance, psychotic disturbance, mood disturbance, and anxiety; Z79.82 Long term (current) use of aspirin; G47.419 Narcolepsy without cataplexy; I73.9 Peripheral vascular disease, unspecified; G24.3 Spasmodic torticollis
CPT/HCPCS: 36415; 70450; 70551; 71045; 80053; 81001; 83605; 83690; 83735; 84100; 85025; 87040; 87637; 93005; 96372; 97116; 97161; 97167; 97530; 99285; G0378; J1630; J1644; J2060; J7030; J9999

== ENCOUNTER → 2024-11-14 07:55 | Outpatient (BNVA) | payer MEDICARE, SELFPAY | PROVIDERS: PCP Family Medicine; Referring Provider Specialist; Visit Provider Specialist | DX: G45.9 Transient cerebral ischemic attack, unspecified (principal); R56.9 Unspecified convulsions | CPT/HCPCS: 95819 ==

== ENCOUNTER → 2024-11-21 11:33 | Outpatient (BNVA) | payer MEDICARE, SELFPAY | PROVIDERS: PCP Family Medicine; Visit Provider Specialist | DX: G40.909 Epilepsy, unspecified, not intractable, without status epilepticus (principal); I48.0 Paroxysmal atrial fibrillation; G24.3 Spasmodic torticollis; G30.9 Alzheimer's disease, unspecified; F02.80 Dementia in other diseases classified elsewhere, unspecified severity, without behavioral disturbance, psychotic disturbance, mood disturbance, and anxiety; R26.9 Unspecified abnormalities of gait and mobility | CPT/HCPCS: 99215 ==

== ENCOUNTER 2024-12-07 21:03 | Emergency (ER) | payer OTHER, SELFPAY ==
--- OUTSIDE RECORDS SUMMARY | 2024-12-07 21:18 | XMS_ITS | Patient Health Record ---
Author Organization [facility] Address [address] [place] [address] Care Team Providers Care Gusset Ripper Name Role Phone Nancie Kenny Primary Care Provider MAXWELL Black Unavailable [phone] Allergies Allergen (clinical drug ingredient) Drug/Non Drug Allergy documented on EMR Reaction Allergy Type Onset Date Status Sudafed Unknown Drug Allergy Active Reason For Referral No Information Medications Medication SIG (Take, Route, Frequency, Duration) Notes Start Date End Date Status Lexapro 10 MG 1 tablet Orally Once a day Active sulfaSALAzine *Pick strength-f orm from Medispan for eRX* Active Terbinafine *Reorder from [place] dispan for eRx and Interaction Alerts* Active Rivastigmine *[facility]* Active Problems Problem Type SNOMED Code ICD Code Onset Dates Problem Status W/U Status Risk Notes Problem Urge incontinence of urine (43167348) Urge incontinence (N39.41) Active confirmed Problem Female urinary stress incontinence (42412371) ANCA (stress urinary incontinence, female) (N39.3) Active confirmed Problem Mixed incontinence (673916651) Mixed incontinence urge and stress (N39.46) Active confirmed Problem Overactive urinary bladder (disorder) (366489734) OAB (overactive bladder) (N32.81) Active confirmed Problem History of chronic cystitis (Z87.448) Active confirmed Plan Of Treatment No Information Insurance Providers Payer Name Payer Address Payer Phone Subscriber Number Group Number Insured Name Patient Relationship to Insured Coverage Start Date Coverage End Date [place] [address] [address] [place], [place] [id number] Natalia Jackson Self - patient is the insured [place] [address] [place], [place] [id number] Natalia Jackson Self - patient is the insured Medical (General) History Medical History History ICD Code bronchitis Hemorrhoids back trouble Bladder infections Arthritis dementia Surgical History Surgery Date(Month/Year) Hysterectomy prolapse bladder/rectum procedure
--- OUTSIDE RECORDS SUMMARY | 2024-12-07 21:19 | XMS_ITS | Patient Health Record ---
Author Organization [facility] Address [address] [place] [address] Care Team Providers Care Senior Tax Manager Name Role Phone DR. Nancie Kenny Primary Care Provider Katlin Moore [phone] Allergies Allergen (clinical drug ingredient) Drug/Non Drug [...] with mixed disturbance of emotions AND conduct (56591239) Adjustment disorder with mixed disturbance of emotions and conduct (F43.25) Active confirmed Problem Urge incontinence of urine (52955553) Urge incontinence (N39.41) Active confirmed Problem Female urinary stress incontinence (79366375) ANCA (stress urinary incontinence, female) (N39.3) Active confirmed Problem Anxiety (81845382) Anxiety (F41.9) Active confirmed Problem Insomnia (093245398) Insomnia (G47.00) Active confirmed Problem Adult failure to thrive syndrome (664672373) Failure to thrive in adult (R62.7) Active confirmed Problem Overactive urinary bladder (disorder) (711284331) OAB (overactive bladder) (N32.81) Active confirmed Problem Mixed incontinence (226934399) Mixed incontinence urge and stress (N39.46) Active confirmed Problem History of chronic cystitis (Z87.448) Active confirmed Problem Dementia with behavioral disturbance (disorder) (2978395030239) Unspecified dementia, unspecified severity, with other behavioral disturbance (F03.918) Active confirmed Problem Unspecified dementia, severe, with other behavioral disturbance (F03.C18) Active confirmed Problem Unspecified dementia, severe, with psychotic disturbance (F03.C2) Active confirmed Plan Of Treatment No Information Insurance Providers Payer Name Payer Address Payer Phone Subscriber Number Group Number Insured Name Patient Relationship to Insured Coverage Start Date Coverage End Date [place] Medicare [address] [place] [phone] [id number] Natalia Jackson Self - patient is the insured [place] [employer] [address] [place] [address] [id number] Natalia Jackson Self - patient is the insured Medical (General) History Medical History History ICD Code bronchitis Hemorrhoids back trouble Bladder infections Arthritis dementia Surgical History Surgery Date(Month/Year) Hysterectomy prolapse bladder/rectum procedure
--- OUTSIDE RECORDS SUMMARY | 2024-12-07 21:19 | XMS_ITS | Patient Health Record ---
Author Organization [facility] Address [address] [place] [address] Care Team Providers Care Vice President Of Recruiting Name Role Phone Bre Coto Unavailable [phone] Reason For Referral No Information Medications Medication SIG (Take, Route, Frequency, Duration) Notes Start Date End Date Status Vivelle 0.05mg Transdermal Patch apply patch 2 x q week as directed; Duration: 30 ([facility]) 07/04/2009 Active Vagifem 25mcg Vaginal Tablets Insert 1 vaginal tablet(s) in vagina 2 times weekly; Duration: 30 ([facility]) 07/04/2009 Active Lactulose 10gm/15ml Syrup take 1 ounce q d; Duration: 30 ([facility]) 07/04/2009 Active Crestor 20mg Tablet Take 1 tablet(s) by mouth daily; Duration: 30 ([facility]) 07/04/2009 Active Plan Of Treatment No Information Insurance Providers Payer Name Payer Address Payer Phone Subscriber Number Group Number Insured Name Patient Relationship to Insured Coverage Start Date Coverage End Date [facility] [address] [place] [address] [phone] [id number] [place] Natalia Self - patient is the insured
[2024-12-07 21:24] VITALS: BP 180/84; PULSE 62; RESP 14; TEMP 36.8; O2SAT 97
[2024-12-07 21:32] VITALS: BP 180/84; PULSE 62; RESP 14; TEMP 36.8; O2SAT 97
--- NOTE | 2024-12-07 21:39 | W.ED.PSYCHS ---
HPI - Psych General: Chief Complaint: Psychiatric Symptoms Stated Complaint: PSYCH EVAL Time Seen by Provider: 12/07/24 21:23 History of Present Illness: Patient is an 79-year-old female that comes in after placing gown strings across her neck at [place] with attempt to hang herself/kill herself. Patient then went in the kitchen and attempted to eat liquid soap. Patient does not recall these events. No complaints at this time at bedside. Son is at bedside and confirms the concern. This is not been an issue in the past. She is chronically on hospice due to her dementia. Son is concerned she needs a medication review. Patient is amicable to go to a psychiatric facility for evaluation. Associated symptoms: Reports depression and suicidal ideation; Deny auditory hallucinations or visual hallucinations Related Data Home Medications ?Medication ?Instructions ?Recorded ?Confirmed sulfasalazine 500 mg 0.5 g PO QAM 01/10/21 11/21/24 tablet,delayed release cholecalciferol (vitamin D3) 125 125 mcg PO QAM 01/09/23 11/21/24 mcg (5,000 unit) capsule acetaminophen 325 mg tablet 325 - 650 mg PO Q6H PRN pain or 06/29/23 11/21/24 fever [id number] 1 - 2 drp ophthalmic (eye) Q2H PRN 06/29/23 11/21/24 80 0.5 %-1 %-0.5 % eye drops Dry Eyes (Refresh Digital) loperamide 2 mg capsule 4 mg PO BID PRN Diarrhea 06/29/23 11/21/24 ibuprofen 400 mg tablet 400 mg PO Q6H PRN Pain 07/10/23 11/21/24 citalopram 10 mg tablet 10 mg PO BID 09/26/24 11/21/24 hydroxyzine HCl 25 mg tablet 25 mg PO TID PRN Allergy Symptoms 09/26/24 11/21/24 lamotrigine 25 mg tablet 25 mg PO BID 09/26/24 11/21/24 meloxicam 7.5 mg tablet 7.5 mg PO QAM 09/26/24 11/21/24 cyanocobalamin (vitamin B-12) 500 500 mcg PO DAILY 11/09/24 11/21/24 mcg tablet (Vitamin B-12) magnesium hydroxide 400 mg/5 mL 30 ml PO DAILY PRN Constipation 11/09/24 11/21/24 oral suspension (Milk of Magnesia) memantine 5 mg tablet 5 mg PO BID 11/09/24 11/21/24 metoprolol succinate 25 mg 25 mg PO QAM 11/09/24 11/21/24 tablet,extended release 24 hr risperidone 1 mg tablet 1 mg PO BEDTIME 11/09/24 11/21/24 zaleplon 10 mg capsule 10 mg PO BEDTIME 11/09/24 11/21/24 Previous Rx's ?Medication ?Instructions ?Recorded lamotrigine 100 mg tablet 100 mg PO BID #180 tabs 11/21/24 Allergies Allergy/AdvReac Type Severity Reaction Status Date / Time pseudoephedrine Allergy Intermediate ADR/ALGY-Hy Verified 11/21/24 11:47 potension Review of Systems Const: Denies: fever(s), change in weight or fatigue Eyes: Denies: change in vision, blurry vision, blind spots, photophobia, eye discomfort, seeing flashes or other (Glaucoma) ENMT: Denies: odynophagia, hoarseness, change in hearing, tinnitus or sinus pain Card: Denies: chest pain, palpitations or syncope Resp: Denies: dyspnea, non-productive cough, wheezing or hemoptysis GI: Denies: abdominal pain, nausea, heartburn, diarrhea, constipation or hematochezia : Reports: urinary incontinence; Denies: urinary frequency Musc: Reports: muscle weakness; Denies: neck pain Skin/Breast: Denies: rash, new lesions or breast mass Neuro: Reports: weakness in extremities and difficulty walking; Denies: headache(s), numbness in extremities, sensory changes, Slurred speech present or seizure-like activity Psych: Reports: anxiety, depression, irritability, paranoia, memory loss, difficulty concentrating and suicidal ideation; Denies: visual hallucinations or auditory hallucinations Endo: Denies: polyuria, polydipsia, excessive sweating or change in body appearance Joseph/Lymph: Reports: easy bruising; Denies: easy bleeding or enlarged lymph nodes PFSH ED PFSH: Medical History (Updated 12/08/24 @ 00:46 by JUAN MIGUEL Alicia) Narcolepsy without cataplexy Peripheral arterial disease Onychodystrophy Cervical dystonia Social History (Reviewed 07/28/25 @ 08:39 by OLIVA Lombardo Smoking and tobacco/nicotine status: never used tobacco/nicotine Physical Exam Const: COMMON NORMALS: no acute distress, average body habitus and patient oriented x3 HENMT: COMMON NORMALS: normocephalic and atraumatic HEAD & SCALP: normocephalic and atraumatic Eye: COMMON NORMALS: Equal, round and reactive pupils present and EOMs intact bilaterally PUPIL: Yes Equal, round and reactive pupils present Neck/C-Spine: COMMON NORMALS: full ROM, no lymphadenopathy, supple and no meningeal signs Lymph: LYMPHATIC: no lymphadenopathy noted Chest: COMMONS NORMALS: normal inspection of the chest and normal palpation of entire chest wall Resp: COMMON NORMALS: normal respiratory effort, No retractions and No use of accessory muscles Cardio: COMMON NORMALS: regular rate and regular rhythm RATE: regular rate RHYTHM: regular rhythm GI: COMMON NORMALS: Normal to inspection, nondistended, normoactive bowel sounds present and Soft to palpation PALPATION: Yes Soft to palpation : COMMON NORMALS: Yes no CVA tenderness BLADDER/KIDNEY EXAM: Yes no CVA tenderness Back/Pelvis: COMMON NORMALS: no CVA tenderness Extremity: COMMON NORMALS: normal to inspection, full ROM and capillary refill normal Neuro: COMMON NORMALS: patient oriented x3 MENINGEAL SIGNS: Yes no meningeal signs Psych: COMMON NORMALS: mental status grossly normal, Normal thought process present, cooperative, normal affect, speech normal, denies hallucinations and denies suicidal ideation APPEARANCE: Yes grossly normal ATTITUDE: Yes calm SPEECH: Yes normal speech THOUGHT PROCESS: Normal thought process present Course Vital Signs: Vital signs: Vital Signs Temperature 98.3 F 12/07/24 21:32 Pulse Rate 62 12/07/24 21:32 Respiratory Rate 14 12/07/24 21:32 Blood Pressure 180/84 12/07/24 21:32 Pulse Oximetry 97 12/07/24 21:32 Oxygen Delivery Me thod Room Air 12/07/24 21:32 MDM - Psych Medical Decision Making Patient is a-year-old female that has dementia, with attempt to kill herself today. She does not recall events, however states she is willing to go to psychiatric care for evaluation. Will place her. Urinalysis, CBC, CMP, TSH is benign. Discussed with son, he is in agreement with this as well. Medical Records I reviewed the patient's medical records. Lab Data 12/07/24 21:57 12/07/24 21:57 Laboratory Results WBC 9.28 10^3/uL (3.29-11.43) 12/07/24 21:57 RBC 3.93 10^6/uL (3.85-5.65) 12/07/24 21:57 Hgb 11.50 g/dL (11.27-16.99) 12/07/24 21:57 Hct 35.2 % (36-47) L 12/07/24 21:57 MCV 89.6 fl (85-98) 12/07/24 21:57 MCH 29.3 pg (27-33) 12/07/24 21:57 MCHC 32.7 g/dL (30-55) 12/07/24 21:57 RDW 14.1 % (12.1-15.1) 12/07/24 21:57 Plt Count 241 10^3/cmm (157-399) 12/07/24 21:57 MPV 9.4 fL (7.4-10.4) 12/07/24 21:57 Neut % (Auto) 51.5 % 12/07/24 21:57 Lymph % (Auto) 36.2 % 12/07/24 21:57 [place] % (Auto) 9.7 % 12/07/24 21:57 Eos % (Auto) 1.8 % 12/07/24 21:57 Baso % (Auto) 0.5 % 12/07/24 21:57 Neut # (Auto) 4.77 10^3/uL (1.8-7.7) 12/07/24 21:57 Lymph # (Auto) 3.4 10^3/uL (0.8-4.8) 12/07/24 21:57 [place] # (Auto) 0.9 10^3/uL (0.2-0.9) 12/07/24 21:57 Eos # (Auto) 0.2 10^3/uL (0.0-0.8) 12/07/24 21:57 Baso # (Auto) 0.1 10^3/uL (0.0-0.1) 12/07/24 21:57 Nucleated RBC % (auto) 0 % 12/07/24 21:57 Nucleated RBCs # 0.0 /100WBC 12/07/24 21:57 Sodium 142 mmol/L (136-145) 12/07/24 21:57 Potassium 3.2 mmol/L (3.5-5.1) L 12/07/24 21:57 Chloride 104 mmol/L (98-107) 12/07/24 21:57 Carbon Dioxide 27 mmol/L (22-29) 12/07/24 21:57 Anion Gap 14.2 (5-19) 12/07/24 21:57 BUN 21 mg/dL (8-23) 12/07/24 21:57 Creatinine 0.7 mg/dL (0.5-0.9) 12/07/24 21:57 GFR Calculation Not Reportable 12/07/24 21:57 Glucose 97 mg/dL (65-115) 12/07/24 21:57 Calculated Osmolality 297 mOsm/kg (285-295) H 12/07/24 21:57 Calcium 9.6 mg/dL (8.5-10.5) 12/07/24 21:57 Total Bilirubin 0.2 mg/dL (0.15-1.2) 12/07/24 21:57 AST 23 U/L (0-32) 12/07/24 21:57 ALT 25 U/L (0-33) 12/07/24 21:57 Alkaline Phosphatase 81 U/L (35-105) 12/07/24 21:57 Total Protein 6.3 g/dL (6.6-8.7) L 12/07/24 21:57 Albumin 3.9 g/dL (3.5-5.2) 12/07/24 21:57 Globulin 2.4 g/dL (1.3-4.6) 12/07/24 21:57 TSH 9.94 uIU/mL (0.27-4.20) H 12/07/24 21:57 Urine Color Yellow (Yellow) 12/07/24 22:56 Urine Appearance Clear (CLEAR) 12/07/24 22:56 Urine pH 6.5 (5-7) 12/07/24 22:56 Ur Specific [place] 1.013 (1.005-1.030) 12/07/24 22:56 Urine Protein Negative (Negative) 12/07/24 22:56 Urine Glucose (UA) Negative (Normal) 12/07/24 22:56 Urine Ketones Negative (Negative) 12/07/24 22:56 Urine Blood Negative (Negative) 12/07/24 22:56 Urine Nitrate Negative (Negative) 12/07/24 22:56 Urine Bilirubin Negative (Negative) 12/07/24 22:56 Urine Urobilinogen 0.2 mg/dL (Negative) 12/07/24 22:56 Ur Leukocyte Esterase 1+ (Negative) A 12/07/24 22:56 Urine RBC 3-5 /hpf (0-2) 12/07/24 22:56 Urine WBC 6-10 /hpf (0-5) 12/07/24 22:56 Ur Squamous Epith Cells 0-5 /hpf (0-5) 12/07/24 22:56 Amorphous Sediment Not Reportable 12/07/24 22:56 Urine Bacteria Trace /hpf (NONE) 12/07/24 22:56 Hyaline Casts 0-4 /lpf H 12/07/24 22:56 Salicylates < 0.3 mg/dL (3-10) L 12/07/24 21:57 Acetaminophen < 5.0 ug/mL (10-30) L 12/07/24 21:57 No radiology studies performed this visit Discharge Plan Discharge Patient Disposition: Xfer Psychiatric Hosp Clinical Impression: Acute psychosis, Suicidal ideation Condition: Stable Referrals: Jose Luis Shah MD [Primary Care Provider, [facility]] Discharge Diet: Usual diet Discharge Activity: Resume usual activity Patient Instructions: Psychotic Disorder (ED), Patient Portal & [facility] Instructions Print Language: [place] Coding Level of Care Code ED House Mover Supervisor for Jose Rafael Mitchell
--- NOTE | 2024-12-07 22:01 | ECG_ITS ---
[facility] Pat Name: Natalia Jackson Department: Room: Gender: Female Medical Operations Supervisor: : [id number] Requested By: Amber Brito Order Number: [id number] Cornelio MD: Tutu Duong M.D. Measurements Intervals [place] Rate: 65 P: 32 NH: 180 QRS: 1 QRSD: 88 T: 22 QT: 431 QTc: 451 Interpretive Statements SINUS RHYTHM NONSPECIFIC T-WAVE ABNORMALITY Compared to ECG 11/09/2024 10:47:34 No significant changes Electronically Signed On 12-10-2024 08:49:42 CDT by Tutu Duong M.D. [email or web address]
[2024-12-07 22:02] LABS: Hematocrit 35.2 % (36-47); Hemoglobin 11.50 g/dL (11.27-16.99); Mean Corpuscular HGB Conc 32.7 g/dL (30-55); Mean Corpuscular Hemoglobin 29.3 pg (27-33); Mean Corpuscular Volume 89.6 fl (85-98); Nucleated Red Blood Cells % 0 %; Platelet Count 241 10^3/cmm (157-399); Red Blood Count 3.93 10^6/uL (3.85-5.65); White Blood Count 9.28 10^3/uL (3.29-11.43)
[2024-12-07 22:29] LABS: Acetaminophen < 5.0 ug/mL (10-30); Alanine Aminotransferase 25 U/L (0-33); Albumin Level 3.9 g/dL (3.5-5.2); Alkaline Phosphatase 81 U/L (35-105); Anion Gap 14.2 (5-19); Aspartate Amino Transferase 23 U/L (0-32); Blood Urea Nitrogen 21 mg/dL (8-23); Calcium 9.6 mg/dL (8.5-10.5); Carbon Dioxide 27 mmol/L (22-29); Chloride 104 mmol/L (98-107); Creatinine Clr Calc Pharmacy 47.9184; Globulin 2.4 g/dL (1.3-4.6); Glucose 97 mg/dL (65-115); Osmolality Calculated 297 mOsm/kg (285-295); Potassium 3.2 mmol/L (3.5-5.1); Salicylate < 0.3 mg/dL (3-10); Sodium 142 mmol/L (136-145); Thyroid Stimulating Hormone 9.94 uIU/mL (0.27-4.20); Total Protein 6.3 g/dL (6.6-8.7)
[2024-12-07 23:39] LABS: Glucose Urine UA Negative (Normal); Nitrate Urine Negative (Negative); Specific Gravity, Urine 1.013 (1.005-1.030)
[2024-12-07 23:44] LABS: Add Urine Microscopic? YES
[2024-12-08 02:51] LABS: PCP Screen Urine Negative (Negative)
[2024-12-08 03:02] VITALS: BP 178/81; PULSE 60; RESP 18; O2SAT 95
[2024-12-08 03:15] VITALS: BP 178/81; PULSE 60; RESP 18; O2SAT 95
--- NOTE | 2024-12-08 03:37 | PC.NURSE ---
Pt report called to Nel Palmer at [facility], denied further questions. Asked ETA update when pt departs.
[2024-12-08 06:00] VITALS: BP 149/80; PULSE 52; RESP 16; O2SAT 93
--- NOTE | 2024-12-08 07:07 | PC.NURSE ---
ASSUMED CARE OF PATIENT AT 0700 FROM MARIAM LEMUS.
[2024-12-08 09:32] VITALS: BP 134/54; PULSE 54; O2SAT 95
--- NOTE | 2024-12-08 09:52 | PC.NURSE ---
PT FAMILY TOOK PT BELONGINGS HOME WITH THEM. PT SHOES WERE TAKEN WITH EMS TO [facility].
== END 2024-12-08 09:56 ==
PROVIDERS: Physician Assistant; Emergency Provider Emergency Medicine; PCP Family Medicine
DX: F23 Brief psychotic disorder (principal); R45.851 Suicidal ideations
CPT/HCPCS: 36415; 80053; 80306; 80307; 81001; 84443; 85025; 93005; 99285; J9999

== ENCOUNTER → 2025-01-26 11:22 | Outpatient (BNVA) | payer MEDICARE, BC, SELFPAY | PROVIDERS: PCP Family Medicine; Visit Provider Podiatrist Foot & Ankle Surgery | DX: I73.9 Peripheral vascular disease, unspecified (principal); L60.3 Nail dystrophy; G30.9 Alzheimer's disease, unspecified; F02.80 Dementia in other diseases classified elsewhere, unspecified severity, without behavioral disturbance, psychotic disturbance, mood disturbance, and anxiety | CPT/HCPCS: 11721 ==